=== PATIENT | male | born 1975 | race Caucasian/White ===

== ENCOUNTER 2018-07-03 13:59 | Emergency (ER) | payer OTHER ==
[2018-07-03] MEDS ORDERED: SODIUM CHLORIDE 0.9% 1,000 ML IV ONE (15:22)
[2018-07-03] MEDS ORDERED: SODIUM CHLORIDE 0.9% 1,000 ML IV SCH (15:30)
--- NOTE | 2018-07-03 15:33 | ED ---
Wound/Laceration HPI - General Chief Complaint: Wound/Laceration Stated Complaint: wound on left leg Time Seen by Provider: 07/03/18 14:59 Source: patient, RN notes reviewed, old records reviewed Mode of arrival: ambulatory Limitations: no limitations - History of Present Illness Initial Comments: 43-year-old male presents for erythromycin chief complaint of left leg wound. Patient reports that he had a small area over the lateral aspect of his mid leg. Patient states that he saw his PCP 2 months ago and started on antibiotics. He reports it's become increasingly worse. Patient states he has had no fever. He reports he's had increased swelling of the entire leg. Patient reports that he has had full range of motion of the toes. He is also on a water pill has a history of chronic leg edema and CHF. Patient states that he is not having any chest pain or shortness of breath. - Related Data Home Medications Medication Instructions Recorded Confirmed Acetaminophen [Tylenol 8 Hour] 650 mg PO Q8H PRN 07/03/18 07/03/18 Ibuprofen [Motrin] 600 mg PO Q12HR PRN 07/03/18 07/03/18 Venlafaxine HCl ER [Effexor Xr] 150 mg PO DAILY 07/03/18 07/03/18 amLODIPine [Norvasc] 5 mg PO DAILY 07/03/18 07/03/18 traMADol HCL [Ultram] 50 mg PO Q8H PRN 07/03/18 07/03/18 traZODone HCL 50 mg PO HS 07/03/18 07/03/18 Previous Rx's Medication Instructions Recorded Sulfamethox-Tmp 800-160Mg [Bactrim 2 tab PO Q12HR #40 tab 07/03/18 DS 800-160 mg] Allergies Allergy/AdvReac Type Severity Reaction Status Date / Time No Known Allergies Allergy Verified 07/03/18 16:01 Review of Systems ROS Statement: Those systems with pertinent positive or pertinent negative responses have been documented in the HPI. ROS Other: All systems not noted in ROS Statement are negative. Past Medical History Past Medical History: Chest Pain / Angina, Hypertension, Osteoarthritis (OA), Skin Disorder Additional Past Medical History / Comment(s): psoriasis. History of Any Multi-Drug Resistant Organisms: None Reported Past Surgical History: Orthopedic Surgery Additional Past Surgical History / Comment(s): Left knee surgery for myles- schlatter disease. Right knee scope. Past Anesthesia/Blood Transfusion Reactions: No Reported Reaction Past Psychological History: Anxiety, Depression Smoking Status: Current every day smoker Past Alcohol Use History: Occasional Past Drug Use History: Cocaine, Marijuana - Past Family History Mother Family Medical History: Asthma, Blood Disorder, CVA/TIA, Diabetes Mellitus, GERD /Reflux, Hypertension, Memory Impairment, Osteoarthritis (OA), Renal Disease Additional Family Medical History / Comment(s): brain aneurysm General Exam - General Exam Comments Initial Comments: This is a 43-year-old male. Alert and oriented. No significant distress. Limitations: no limitations General appearance: alert, in no apparent distress Head exam: Present: atraumatic, normocephalic, normal inspection Eye exam: Present: normal appearance, PERRL, EOMI. Absent: scleral icterus, conjunctival injection, periorbital swelling ENT exam: Present: normal exam, mucous membranes moist Neck exam: Present: normal inspection. Absent: tenderness, meningismus, lymphadenopathy Respiratory exam: Present: normal lung sounds bilaterally. Absent: respiratory distress, wheezes, rales, rhonchi, stridor Cardiovascular Exam: Present: regular rate, normal rhythm, normal heart sounds. Absent: systolic murmur, diastolic murmur, rubs, gallop, clicks GI/Abdominal exam: Present: soft, normal bowel sounds. Absent: distended, tenderness, guarding, rebound, rigid Extremities exam: Present: normal inspection, full ROM, normal capillary refill. Absent: tenderness, pedal edema, joint swelling, calf tenderness Left Knee exam: Present: normal inspection, full ROM Lower Leg exam: Present: full ROM. Absent: normal inspection (She has a 2 cm x 2 cm venous-stasis ulcer over the lateral aspect of the left leg. Chronic venous changes noted with dusky extremity noted.) Ankle exam: Present: normal inspection, full ROM Foot/Toe exam: Present: normal inspection, full ROM Neurovascular tendon exam: Present: no vascular compromise Gait: observed and normal Back exam: Present: normal inspection Neurological exam: Present: alert Psychiatric exam: Present: normal affect, normal mood Skin exam: Present: warm, dry, intact, normal color, rash (Is dusky lower left extremity. There is evidence of this) Course Vital Signs 07/03/18 14:13 Temperature 98.1 F Pulse Rate 106 H Respiratory 20 Rate Blood Pressure 140/81 O2 Sat by Pulse 99 Oximetry Medical Decision Making - Medical Decision Making Patient is a 43-year-old male presents for instrumentation complaint of concern for wound over the left lower aspect of his leg. It's been increasingly large for the past month. Approximately 2cm. Patient does have some increased edema over the lower extremity bilaterally, slight worse in Left leg. I discussed if it increases lasik. for the next few days and have close follow-up with primary care provider. He has no shortness of breath or concerns for acute heart failure. I discussed that we'll put the Patient on antibiotics for the wound. He needs follow-up with a wound care clinic. Patient agrees to treatment plan will comply. Return parameters were discussed. - Lab Data Result diagrams: 07/03/18 15:45 07/03/18 15:45 Lab Results 07/03/18 07/03/18 Range/Units 15:45 15:45 WBC 9.3 (3.8-10.6) k/uL RBC 4.97 (4.30-5.90) m/uL Hgb 14.9 (13.0-17.5) gm/dL Hct 45.8 (39.0-53.0) % MCV 92.2 (80.0-100.0) fL MCH 30.0 (25.0-35.0) pg MCHC 32.5 (31.0-37.0) g/dL RDW 13.6 (11.5-15.5) % Plt Count 329 (150-450) k/uL Neutrophils % 74 % Lymphocytes % 16 % Monocytes % 6 % Eosinophils % 2 % Basophils % 1 % Neutrophils # 6.9 (1.3-7.7) k/uL Lymphocytes # 1.5 (1.0-4.8) k/uL Monocytes # 0.6 (0-1.0) k/uL Eosinophils # 0.2 (0-0.7) k/uL Basophils # 0.1 (0-0.2) k/uL Sodium 139 (137-145) mmol/L Potassium 4.5 (3.5-5.1) mmol/L Chloride 106 (98-107) mmol/L Carbon Dioxide 28 (22-30) mmol/L Anion Gap 5 mmol/L BUN 16 (9-20) mg/dL Creatinine 0.79 (0.66-1.25) mg/dL Est GFR (CKD-EPI)AfAm >90 (>60 ml/min/1.73 sqM) Est GFR (CKD-EPI)NonAf >90 (>60 ml/min/1.73 sqM) Glucose 79 (74-99) mg/dL Calcium 9.1 (8.4-10.2) mg/dL - Radiology Data Radiology results: report reviewed X-ray shows to correlate for cellulitis and edema. Disposition Clinical Impression: Venous stasis ulcer Disposition: HOME SELF-CARE Condition: Good Instructions: Chronic Wound Care (ED) Additional Instructions: Follow-up with her primary care provider within the next 1-2 days. Take antibiotics as prescribed and apply antibiotic cream. Follow-up with wound care clinic. Prescriptions: Sulfamethox-Tmp 800-160Mg [Bactrim DS 800-160 mg] 2 tab PO Q12HR #40 tab Is patient prescribed a controlled substance at d/c from ED?: No Referrals: Maria Elena Rico MD [Primary Care Provider] - 1-2 days [facility] [[facility] - 1-2 days Time of Disposition: 16:57
[2018-07-03 16:00] LABS: Basophils # (A) 0.1 k/uL (0-0.2); Basophils % (A) 1 %; Eosinophils # (A) 0.2 k/uL (0-0.7); Eosinophils % (A) 2 %; HCT 45.8 % (39.0-53.0); HGB 14.9 gm/dL (13.0-17.5); Lymphocytes # (A) 1.5 k/uL (1.0-4.8); Lymphocytes % (A) 16 %; MCHC 32.5 g/dL (31.0-37.0); MCV 92.2 fL (80.0-100.0); Monocytes # (A) 0.6 k/uL (0-1.0); Monocytes % (A) 6 %; Neutrophils # (A) 6.9 k/uL (1.3-7.7); Neutrophils % (A) 74 %; Platelet Count 329 k/uL (150-450); RBC 4.97 m/uL (4.30-5.90); RDW 13.6 % (11.5-15.5); WBC 9.3 k/uL (3.8-10.6)
[2018-07-03 16:13] LABS: Anion Gap 5 mmol/L; Blood Urea Nitrogen 16 mg/dL (9-20); Calcium 9.1 mg/dL (8.4-10.2); Carbon Dioxide 28 mmol/L (22-30); Chloride 106 mmol/L (98-107); Glucose 79 mg/dL (74-99); Potassium 4.5 mmol/L (3.5-5.1); Sodium 139 mmol/L (137-145)
--- NOTE | 2018-07-03 16:20 | XR ---
Left leg HISTORY: Nonhealing wound for 2 months 2 views of the left leg on 4 images, correlation to prior exam 11/18/2010. There is soft tissue swelling present. Ossific densities distal to the medial malleolus are well-irasema icated and not acute. No definite periosteal reaction. Patient is status post left knee arthroplasty. Bone mineralization and alignment are maintained. There is a plantar calcaneal spur present. Entheso phyte present at the insertion of the Achilles tendon. IMPRESSION: Correlate for cellulitis, edema.
[2018-07-03 17:08] VITALS: BP 151/81; PULSE 80; RESP 18; TEMP 98.5
== END 2018-07-03 17:06 | disposition home or self-care (01) ==
LOC: EC 13:59
DX: I83.028 Varicose veins of left lower extremity with ulcer other part of lower leg (principal); L97.829 Non-pressure chronic ulcer of other part of left lower leg with unspecified severity; R60.0 Localized edema; I11.0 Hypertensive heart disease with heart failure; I50.9 Heart failure, unspecified; F41.9 Anxiety disorder, unspecified; F32.9 Major depressive disorder, single episode, unspecified; F17.200 Nicotine dependence, unspecified, uncomplicated; Z79.899 Other long term (current) drug therapy; Z98.890 Other specified postprocedural states
CPT/HCPCS: 36415; 80048; 85025; 87040; 87070; 87077; 87186; 87205; 96360; 99284

== ENCOUNTER → 2018-07-26 | Outpatient (CLI) | payer OTHER ==
[2018-07-26 16:48] LABS: HGB 14.6 gm/dL (13.0-17.5); MCH 30.5 pg (25.0-35.0); MCHC 32.5 g/dL (31.0-37.0); MCV 93.9 fL (80.0-100.0); Mean Platelet Volume 6.4; Platelet Count 372 k/uL (150-450); RBC 4.79 m/uL (4.30-5.90); RDW 13.5 % (11.5-15.5)
[2018-07-27 02:50] LABS: Albumin 4.1 g/dL (3.80-4.90); Albumin/Globulin Ratio 1.78 (1.20-2.10); Calcium 8.7 mg/dL (8.7-10.3); Globulin 2.3 g/dL (2.1-3.7); Potassium 4.5 mmol/L (3.5-5.5); Total Bilirubin 0.4 mg/dL (0.2-1.2); Total Protein 6.4 g/dL (6.2-8.2)
== END | disposition home or self-care (01) ==
LOC: LABWHC1 16:04
PROVIDERS: ATTEND Thoracic Surgery (Cardiothoracic Vascular Surgery)
DX: I87.2 Venous insufficiency (chronic) (peripheral) (principal); E63.8 Other specified nutritional deficiencies
CPT/HCPCS: 36415; 80053; 84134; 85027

== ENCOUNTER 2019-06-06 10:06 | Day surgery (SDC) | payer OTHER ==
[2019-05-31 13:40] VITALS: BMI 44.7
[~2019-06-06 10:06] MED LIST: LACTATED RINGERS 1,000 ML IV SCH
[2019-06-06 11:08] VITALS: TEMP 98.1
[2019-06-06] MEDS ORDERED: LIDOCAINE 1% 20 ML VIAL (10MG/ML) FOR IV START INTRADERMA ONE (11:25)
[2019-06-06] MEDS ORDERED: PROPOFOL 10 MG/ML 20 ML VIAL IV ONE (12:25)
--- NOTE | 2019-06-06 12:33 | P.GSHP ---
History of Present Illness H&P Date: 06/06/19 Chief Complaint: GI bleed This a 44-year-old male who presents today for colonoscopy. Patient has issues with rectal bleeding. Past Medical History Past Medical History: Chest Pain / Angina, Deep Vein Thrombosis (DVT), GI Bleed, Hypertension, Osteoarthritis (OA), Pulmonary Embolus (PE), Skin Disorder, Thyroid Disorder Additional Past Medical History / Comment(s): psoriasis, enlarged heart, oswood-schlatter disease History of Any Multi-Drug Resistant Organisms: None Reported Past Surgical History: Joint Replacement, Orthopedic Surgery Additional Past Surgical History / Comment(s): Left knee surgery for myles- schlatter disease. Right knee scope, helene knee replacement Past Anesthesia/Blood Transfusion Reactions: No Reported Reaction Smoking Status: Current every day smoker - Past Family History Mother Family Medical History: Asthma, Blood Disorder, CVA/TIA, Diabetes Mellitus, GERD/Reflux, Hypertension, Memory Impairment, Osteoarthritis (OA), Renal Disease Additional Family Medical History / Comment(s): brain aneurysm Medications and Allergies Home Medications Medication Instructions Recorded Confirmed Type Venlafaxine HCl ER [Effexor Xr] 150 mg PO DAILY 07/03/18 05/31/19 History amLODIPine [Norvasc] 5 mg PO DAILY 07/03/18 06/06/19 History traZODone HCL 50 mg PO HS 07/03/18 06/06/19 History HYDROcodone/APAP 7.5-325MG [[place] 1 tab PO TID PRN 08/02/18 06/06/19 History 7.5-325] Aspirin [Adult Low Dose Aspirin EC] 81 mg PO DAILY 05/31/19 06/06/19 History Furosemide [Lasix] 20 mg PO DAILY 05/31/19 05/31/19 History Levothyroxine Sodium 25 mcg PO DAILY 05/31/19 05/31/19 History Potassium Chloride 10 meq PO DAILY 05/31/19 05/31/19 History Allergies Allergy/AdvReac Type Severity Reaction Status Date / Time No Known Allergies Allergy Verified 05/31/19 13:29 Surgical - Exam Vital Signs Temp Pulse Resp BP Pulse Ox 98.1 F 74 18 141/93 95 06/06/19 11:06 06/06/19 11:06 06/06/19 11:06 06/06/19 11:06 06/06/19 11:06 - General well developed, well nourished, no distress - Eyes PERRL - ENT normal pinna - Neck no masses - Respiratory normal expansion - Cardiovascular Rhythm: regular - Abdomen Abdomen: soft, non tender Assessment and Plan Assessment: GI bleed. We'll perform colonoscopy.
--- NOTE | 2019-06-06 12:44 | P.OP ---
Date of Procedure: 06/06/19 Preoperative Diagnosis: GI bleed Postoperative Diagnosis: Internal hemorrhoids to Rectal polyp Mild diverticulosis Poor colonic prep Procedure(s) Performed: Colonoscopy Anesthesia: MAC Surgeon: Nehemias Mehta Pathology: other (Rectal polyp) Condition: stable Disposition: PACU Description of Procedure: The patient's placed on the endoscopy table in the lateral position. He received IV sedation. Digital rectal exam was performed and internal hemorrhoids are noted. The flexible colonoscope was then placed patient anus passed with colon. The patient had a very poor prep with a large amount of formed stool in the colon. The scope could not be passed beyond the distal transverse colon due to the poor prep. This was scope was withdrawn. The descending and; was mild diverticular changes. Scope summer back the rectum and there was a small sessile polyp seen this removed the forcep. Scope was withdrawn for patient.
[2019-06-06 13:00] VITALS: RESP 16
[2019-06-06 13:09] VITALS: BP 140/91; PULSE 75
== END 2019-06-06 13:42 | disposition home or self-care (01) ==
LOC: ORWHC2ENDO 10:06
PROVIDERS: ATTEND Surgery
DX: K62.1 Rectal polyp (principal); K57.90 Diverticulosis of intestine, part unspecified, without perforation or abscess without bleeding; K64.8 Other hemorrhoids; K62.5 Hemorrhage of anus and rectum; M19.90 Unspecified osteoarthritis, unspecified site; I11.9 Hypertensive heart disease without heart failure; Z86.718 Personal history of other venous thrombosis and embolism; Z86.711 Personal history of pulmonary embolism; E07.9 Disorder of thyroid, unspecified; L40.9 Psoriasis, unspecified; M92.50 Unspecified juvenile osteochondrosis of tibia and fibula; Z96.653 Presence of artificial knee joint, bilateral; F17.200 Nicotine dependence, unspecified, uncomplicated; Z83.3 Family history of diabetes mellitus; Z83.2 Family history of diseases of the blood and blood-forming organs and certain disorders involving the immune mechanism; Z82.5 Family history of asthma and other chronic lower respiratory diseases; Z82.49 Family history of ischemic heart disease and other diseases of the circulatory system; Z84.1 Family history of disorders of kidney and ureter; Z82.3 Family history of stroke; Z79.82 Long term (current) use of aspirin; Z79.890 Hormone replacement therapy; Z79.899 Other long term (current) drug therapy
CPT/HCPCS: 88305; 45380; J2704

== ENCOUNTER 2020-01-30 19:13 | Inpatient (IN) | payer OTHER ==
[2020-01-30] MEDS ORDERED: MORPHINE SULFATE 4 MG/ML SYRINGE IVP STA ×2 (19:42→21:36)
[2020-01-30] MEDS ORDERED: ONDANSETRON 4 MG/2 ML VIAL IVP STA (19:42)
--- NOTE | 2020-01-30 19:53 | ED ---
Extremity Problem HPI - General Chief complaint: Extremity Problem,Nontraumatic Stated complaint: L Leg Swelling Time Seen by Provider: 01/30/20 19:29 Source: patient, RN notes reviewed Mode of arrival: ambulatory Limitations: no limitations - History of Present Illness Initial comments: This a 45-year-old male presents emergency Department chief complaint of left leg pain, swelling and open sore. Patient states she's had significant changes last 24 hours he has meant that he's been having increasing issues over the last few days to a week. Patient does admit that he's had infections and swelling in the past. He does have a history of DVT, PE. Patient states that he does not take any current blood thinners. He has no complaints chest pain or shortness breath no fevers or chills. He states that he is not a diabetic. He states that he has seen Dr. Pringle in the past and has been evaluated by wound center. Patient states the pain as a his tremendous, that there is increased swelling from yesterday. He states her multiple wounds. - Related Data Home Medications Medication Instructions Recorded Confirmed Venlafaxine HCl ER [Effexor Xr] 150 mg PO DAILY 07/03/18 01/30/20 amLODIPine [Norvasc] 5 mg PO DAILY 07/03/18 01/30/20 Aspirin [Adult Low Dose Aspirin EC] 81 mg PO DAILY 05/31/19 01/30/20 Furosemide [Lasix] 20 mg PO DAILY 05/31/19 01/30/20 Levothyroxine Sodium 25 mcg PO DAILY 05/31/19 01/30/20 Potassium Chloride 10 meq PO DAILY 05/31/19 01/30/20 Ibuprofen [Motrin] 600 mg PO Q12H PRN 01/30/20 01/30/20 traMADol HCL 50 mg PO TID PRN 01/30/20 01/30/20 traZODone HCL [Desyrel] 100 mg PO HS 01/30/20 01/30/20 Allergies Allergy/AdvReac Type Severity Reaction Status Date / Time No Known Allergies Allergy Verified 01/30/20 21:33 Review of Systems ROS Statement: Those systems with pertinent positive or pertinent negative responses have been documented in the HPI. ROS Other: All systems not noted in ROS Statement are negative. Past Medical History Past Medical History: Chest Pain / Angina, Deep Vein Thrombosis (DVT), GI Bleed, Hypertension, Osteoarthritis (OA), Pulmonary Embolus (PE), Skin Disorder, Thyroid Disorder Additional Past Medical History / Comment(s): psoriasis, enlarged heart, oswood-schlatter disease History of Any Multi-Drug Resistant Organisms: None Reported Past Surgical History: Joint Replacement, Orthopedic Surgery Additional Past Surgical History / Comment(s): Left knee surgery for myles- schlatter disease. Right knee scope, hleene knee replacement Past Anesthesia/Blood Transfusion Reactions: No Reported Reaction Past Psychological History: Anxiety, Depression Smoking Status: Current every day smoker Past Alcohol Use History: Occasional Past Drug Use History: Marijuana - Past Family History Mother Family Medical History: Asthma, Blood Disorder, CVA/TIA, Diabetes Mellitus, GERD/Reflux, Hypertension, Memory Impairment, Osteoarthritis (OA), Renal Disease Additional Family Medical History / Comment(s): brain aneurysm General Exam Limitations: no limitations General appearance: alert, in no apparent distress, obese Head exam: Present: atraumatic, normocephalic, normal inspection ENT exam: Present: normal exam, mucous membranes moist Neck exam: Present: normal inspection. Absent: tenderness, meningismus, lymphadenopathy Respiratory exam: Present: normal lung sounds bilaterally. Absent: respiratory distress, wheezes, rales, rhonchi, stridor Cardiovascular Exam: Present: normal rhythm, tachycardia (Heart rate 108), normal heart sounds. Absent: systolic murmur, diastolic murmur, rubs, gallop, c licks GI/Abdominal exam: Present: soft, normal bowel sounds. Absent: distended, tenderness, guarding, rebound, rigid Extremities exam: Present: other (Bilateral lower extremity venous stasis changes noted, brown in color, left leg there is noticeable increased swelling, moderate tenderness with palpation there are palpable pulses bilaterally dorsal pedalais, posterior tibialis equal, there is an open wound approximately 2 cm in diameter below the swelling, there is one small half centimeter open wound in addition) Neurological exam: Present: alert, oriented X3 Course Vital Signs 01/30/20 01/30/20 19:15 21:35 Temperature 98.8 F 98.9 F Pulse Rate 108 H 91 Respiratory 20 18 Rate Blood Pressure 157/104 127/95 O2 Sat by Pulse 99 99 Oximetry Medical Decision Making - Medical Decision Making 45-year-old male presented for left leg pain. Patient has significant venous stasis ulcers, left leg cellulitis. There is no evidence of acute DVT there is evidence of chronic DVT. Patient will be admitted for IV antibiotics. There is no evidence of osteomyelitis. - Lab Data Result diagrams: 01/30/20 20:00 01/30/20 20:00 Lab Results 01/30/20 01/30/20 01/30/20 Range/Units 20:00 20:00 20:00 WBC 11.5 H (3.8-10.6) k/uL RBC 4.89 (4.30-5.90) m/uL Hgb 14.8 (13.0-17.5) gm/dL Hct 44.6 (39.0-53.0) % MCV 91.2 (80.0-100.0) fL MCH 30.3 (25.0-35.0) pg MCHC 33.3 (31.0-37.0) g/dL RDW 13.6 (11.5-15.5) % Plt Count 362 (150-450) k/uL Neutrophils % 73 % Lymphocytes % 14 % Monocytes % 8 % Eosinophils % 4 % Basophils % 1 % Neutrophils # 8.3 H (1.3-7.7) k/uL Lymphocytes # 1.6 (1.0-4.8) k/uL Monocytes # 0.9 (0-1.0) k/uL Eosinophils # 0.4 (0-0.7) k/uL Basophils # 0.1 (0-0.2) k/uL PT 9.3 (9.0-12.0) sec INR 0.9 (<1.2) APTT 23.9 (22.0-30.0) sec Sodium 136 L (137-145) mmol/L Potassium 4.5 (3.5-5.1) mmol/L Chloride 105 (98-107) mmol/L Carbon Dioxide 24 (22-30) mmol/L Anion Gap 7 mmol/L BUN 18 (9-20) mg/dL Creatinine 0.79 (0.66-1.25) mg/dL Est GFR (CKD-EPI)AfAm >90 (>60 ml/min/1.73 sqM) Est GFR (CKD-EPI)NonAf >90 (>60 ml/min/1.73 sqM) Glucose 85 (74-99) mg/dL Calcium 9.0 (8.4-10.2) mg/dL Total Bilirubin 0.4 (0.2-1.3) mg/dL AST 28 (17-59) U/L ALT 33 (4-49) U/L Alkaline Phosphatase 109 (38-126) U/L Total Protein 7.3 (6.3-8.2) g/dL Albumin 3.9 (3.5-5.0) g/dL Disposition Clinical Impression: Venous stasis ulcer of left lower leg with edema of left lower leg, Left leg cellulitis, Chronic deep vein thrombosis (DVT) of left lower extremity Disposition: ADMITTED IP TO THIS HOSP Condition: Fair Referrals: Maria Elena Rico MD [Primary Care Provider] - 1-2 days
[2020-01-30 20:16] LABS: Basophils # (A) 0.1 k/uL (0-0.2); Basophils % (A) 1 %; Eosinophils # (A) 0.4 k/uL (0-0.7); Eosinophils % (A) 4 %; HCT 44.6 % (39.0-53.0); HGB 14.8 gm/dL (13.0-17.5); Lymphocytes # (A) 1.6 k/uL (1.0-4.8); Lymphocytes % (A) 14 %; MCH 30.3 pg (25.0-35.0); MCHC 33.3 g/dL (31.0-37.0); MCV 91.2 fL (80.0-100.0); Monocytes # (A) 0.9 k/uL (0-1.0); Monocytes % (A) 8 %; Neutrophils # (A) 8.3 k/uL (1.3-7.7); Neutrophils % (A) 73 %; Platelet Count 362 k/uL (150-450); RBC 4.89 m/uL (4.30-5.90); RDW 13.6 % (11.5-15.5); WBC 11.5 k/uL (3.8-10.6)
[2020-01-30 20:24] LABS: ALT 33 U/L (4-49); AST 28 U/L (17-59); African American GFR (CKD) >90 (>60 ml/min/1.73 sqM); Albumin 3.9 g/dL (3.5-5.0); Alkaline Phosphatase 109 U/L (38-126); Anion Gap 7 mmol/L; Blood Urea Nitrogen 18 mg/dL (9-20); Carbon Dioxide 24 mmol/L (22-30); Chloride 105 mmol/L (98-107); Glucose 85 mg/dL (74-99); Non-African American GFR(CKD) >90 (>60 ml/min/1.73 sqM); Potassium 4.5 mmol/L (3.5-5.1); Sodium 136 mmol/L (137-145); Total Bilirubin 0.4 mg/dL (0.2-1.3); Total Protein 7.3 g/dL (6.3-8.2)
--- NOTE | 2020-01-30 20:36 | XR ---
EXAMINATION TYPE: XR tibia fibula LT DATE OF EXAM: 01/30/2020 COMPARISON: 07/03/2018 HISTORY: Pain and swelling TECHNIQUE: 4 views FINDINGS: There is subcutaneous edema around the lower leg. I see no fracture nor dislocation. There is a left knee prosthesis. Ankle mortise is anatomic. IMPRESSION: Subcutaneous edema that appears worse than old exam. No fracture.
[2020-01-30 21:04] LABS: INR 0.9 (<1.2); Partial Thromboplastin Time 23.9 sec (22.0-30.0); Prothrombin Time 9.3 sec (9.0-12.0)
--- NOTE | 2020-01-30 21:19 | US ---
EXAMINATION TYPE: US venous doppler duplex LE LT DATE OF EXAM: 01/30/2020 9:02 PM COMPARISON: US 2009 CLINICAL HISTORY: pain, swelling. Pain and swelling left leg x couple days. Hx DVT and PE. Hx left kn ee surgery. Patient does not take blood thinners. SIDE PERFORMED: Left TECHNIQUE: The lower extremity deep venous system is examined utilizing real time linear array sonog iraida with graded compression, doppler sonography and color-flow sonography. VESSELS IMAGED: Common Femoral Vein Deep Femoral Vein Greater Saphenous Vein * Femoral Vein Popliteal Vein Small Saphenous Vein * Proximal Calf Veins (* superficial vessels) Left Leg: Exam is limited due to large patient body habitus and severe edema. Limited visibility for compression imaging of femoral vein. There appears to be internal echoes within the partially compre ssible left popliteal vein. IMPRESSION: There is evidence of chronic deep vein thrombosis in the popliteal vein. Limited exam.
[2020-01-30] MEDS ORDERED: NALOXONE 0.4 MG/ML 1 ML VIAL IV PRN (21:23)
[2020-01-30] MEDS ORDERED: ONDANSETRON 4 MG/2 ML VIAL IVP PRN (21:23)
[2020-01-30] MEDS ORDERED: ACETAMINOPHEN TAB 325 MG TAB PO PRN (21:23)
[2020-01-30] MEDS ORDERED: VANCOMYCIN IV PER PHARMACY 1 EACH MISC MISCELLANE PRN (21:25)
[2020-01-30] MEDS ORDERED: cefTRIAXone IN SWFI 1,000 MG/10 ML SYRINGE IVP STA (21:25)
[2020-01-30] MEDS ORDERED: VANCOMYCIN 2,000 MG in SODIUM CHLORIDE 0.9% 500 ML 500 ML IVPB ONE (22:00)
[2020-01-31] MEDS: MORPHINE SULFATE 4 MG/ML SYRINGE IV PRN ×5 (00:18→20:29)
[2020-01-31] MEDS: HYDROcodone/APAP 5-325MG 1 EACH TAB PO PRN ×3 (01:27→16:12)
[2020-01-31] MEDS: VANCOMYCIN 2,000 MG in SODIUM CHLORIDE 0.9% 500 ML 500 ML IVPB SCH ×3 (05:12→23:02)
[2020-01-31] MEDS: traMADol 50 MG TAB PO PRN ×2 (13:52→22:14)
--- NOTE | 2020-01-31 14:24 | P.HPIM ---
History of Present Illness H&P Date: 01/31/20 Alexandro Juares is a 45-year-old male well-known to my practice who presented to [facility] emergency room was a chief complaint of left lower extremity swelling pain and open ulcer in the left pretibial area he was evaluated in emergency room and was started on IV antibiotic and was admitted to medical floor. Left lower extremity Doppler was done and revealed evidence of chronic deep venous thrombosis in the left popliteal vein. Patient has a known history of hypertension, hypothyroidism, morbid obesity, osteoarthritis, and history of depression. Past Medical History Past Medical History: Chest Pain / Angina, Deep Vein Thrombosis (DVT), GI Bleed, Hypertension, Osteoarthritis (OA), Pulmonary Embolus (PE), Skin Disorder, Thyroid Disorder Additional Past Medical History / Comment(s): psoriasis, enlarged heart, oswood- schlatter disease History of Any Multi-Drug Resistant Organisms: None Reported Past Surgical History: Joint Replacement, Orthopedic Surgery Additional Past Surgical History / Comment(s): Left knee surgery for myles-belgica latter disease. Right knee scope, helene knee replacement Past Anesthesia/Blood Transfusion Reactions: No Reported Reaction Past Psychological History: Anxiety, Depression Smoking Status: Current every day smoker Past Alcohol Use History: Occasional Additional Past Alcohol Use History / Comment(s): smoker x 20 years 1/2ppd Past Drug Use History: Marijuana Additional Drug Use History / Comment(s): marijuana occasionally - Past Family History Mother Family Medical History: Asthma, Blood Disorder, CVA/TIA, Diabetes Mellitus, GERD/Reflux, Hypertension, Memory Impairment, Osteoarthritis (OA), Renal Disease Additional Family Medical History / Comment(s): brain aneurysm Medications and Allergies Home Medications Medication Instructions Recorded Confirmed Type Venlafaxine HCl ER [Effexor Xr] 150 mg PO DAILY 07/03/18 01/30/20 History amLODIPine [Norvasc] 5 mg PO DAILY 07/03/18 01/30/20 History Aspirin [Adult Low Dose Aspirin EC] 81 mg PO DAILY 05/31/19 01/30/20 History Furosemide [Lasix] 20 mg PO DAILY 05/31/19 01/30/20 History Levothyroxine Sodium 25 mcg PO DAILY 05/31/19 01/30/20 History Potassium Chloride 10 meq PO DAILY 05/31/19 01/30/20 History Ibuprofen [Motrin] 600 mg PO Q12H PRN 01/30/20 01/30/20 History traMADol HCL 50 mg PO TID PRN 01/30/20 01/30/20 History traZODone HCL [Desyrel] 100 mg PO HS 01/30/20 01/30/20 History Allergies Allergy/AdvReac Type Severity Reaction Status Date / Time No Known Allergies Allergy Verified 01/30/20 21:33 Physical Exam Vitals: Vital Signs Temp Pulse Pulse Resp BP BP Pulse Ox 01/31/20 08:30 84 18 01/31/20 07:00 97.8 F 84 17 138/82 93 L 01/31/20 00:07 98.1 F 94 17 126/81 94 L 01/30/20 23:02 88 17 125/74 99 01/30/20 21:35 98.9 F 91 18 127/95 99 01/30/20 19:15 98.8 F 108 H 20 157/104 99 Intake and Output 01/30/20 01/31/20 01/31/20 22:59 06:59 14:59 Intake Total 500 380 Balance 500 380 Intake: Intake, IV Titration 500 Amount Vancomycin 2,000 mg In 500 Sodium Chloride 0.9% 500 ml 500 ml @ 167 mls/hr IVPB Q8H [facility] Rx#: [id number] Oral 380 Other: Weight 162.386 kg 162.386 kg In general patient is alert and oriented 3 in no apparent distress HEENT head normocephalic and atraumatic Neck is supple no JVD no goiter no lymphadenopathy Chest exam reveals a few scattered crackles no wheezing Cardiac exam reveals regular heart sounds no gallops no murmurs Abdomen is soft nontender no organomegaly with normal bowel sounds Extremity exam reveals 2+ edema bilaterally there is stasis changes in bilateral lower extremities, there is evidence of cellulitis in the left pretibial area with large open ulcer about 1 inch in diameter in the left pretibial area Neurological examination reveals no gross focal deficit Results CBC & Chem 7: 01/30/20 20:00 01/30/20 20:00 Labs: Abnormal Lab Results - Last 24 Hours (Table) 01/30/20 01/30/20 Range/Units 20:00 20:00 WBC 11.5 H (3.8-10.6) k/uL Neutrophils # 8.3 H (1.3-7.7) k/uL Sodium 136 L (137-145) mmol/L Microbiology - Last 24 Hours (Table) 01/30/20 20:07 Gram Stain - Preliminary Leg - Left Wound Culture - Preliminary Thrombosis Risk Factor Assmnt - Choose All That Apply Each Factor Represents 1 point: Age 41-60 years, Swollen legs (current), Varicose veins Each Risk Factor Represents 3 Points: History of DVT/PE Thrombosis Risk Factor Assessment Total Risk Factor Score: 6 Thrombosis Risk Factor Assessment Level: High Risk Assessment and Plan Plan: 1. Left lower extremity cellulitis with ulcer, leukocytosis on admission white blood count 11.5. Patient was started on IV antibiotics, infectious disease consultation was requested 2. Venous stasis changes, bilateral lower extremities, vascular surgery consultation was requested 3. Underlying history of hypertension, home medications reordered will monitor blood pressure closely 4. Underlying history of hypothyroidism, continue home dose of Synthroid check TSH 5. Underlying history of depression, continue venlafaxine 6. Marked morbid obesity, patient counseled regarding diet and exercise 7. Evidence of chronic deep venous thrombosis on the left in the popliteal vein, patient is on aspirin, and Lovenox vascular surgery consultation requested 8. Recent left shoulder injury with shoulder pain Will check x-ray At this time patient was started on IV antibiotics vancomycin and ceftriaxone Infectious disease and vascular surgery consultation was requested Will follow closely please see orders
[2020-01-31] MEDS: FUROSEMIDE 20 MG TAB PO SCH (14:44)
[2020-01-31] MEDS: POTASSIUM CHLORIDE ER 10 MEQ TAB.ER.PRT PO SCH (14:44)
[2020-01-31] MEDS: amLODIPine 5 MG TAB PO SCH (14:44)
[2020-01-31] MEDS: ASPIRIN 81 MG PO SCH (14:44)
[2020-01-31] MEDS: VENLAFAXINE HCL ER 150 MG CAP PO SCH (14:44)
[2020-01-31] MEDS: LEVOTHYROXINE 25 MCG TAB PO SCH (14:44)
[2020-01-31] MEDS: COLLAGENASE 250 UNIT/GM OINTMENT 30 GM TUBE TOPICAL SCH (16:55)
[2020-01-31] MEDS: NICOTINE 21MG/24HR PATCH TRANSDERM SCH (18:18)
--- NOTE | 2020-01-31 18:54 | CONS ---
CONSULTATION This is a 45-year-old gentleman who has been admitted to [facility] with history of left lower extremity swelling and discomfort and pain. The patient had an ultrasound of his left pretibial area. Measurement is 4 x 3 cm and the patient also has some brown induration of the lower extremities suggestive of chronic venous hypertension. The patient had an ultrasound which shows chronic DVT of the popliteal vein. MEDICAL HISTORY: History of DVT in the past, history of hypertension, history of PE, history of obesity. SURGICAL HISTORY: Patient had a joint replacement done in the past. PHYSICAL EXAMINATION: NECK: Supple. Trachea central. CHEST: Clear. ABDOMEN: Soft. Femorals are palpable. Dorsal pedis palpable. Patient has brown induration of the left lower extremity with an ulcer on the pretibial area measuring 4 x 3 cm. PLAN: The patient is on IV antibiotics. We used Santyl cream to the wound with compression wraps. The plan is that the patient will be followed in the wound clinic. Patient is a regular patient of Dr. Josh Pringle in the wound clinic and he will follow with this patient on . In the meantime, continue with Santyl and IV antibiotic. Follow up next week to see Dr. Pringle in the wound clinic on . MMODL / IJN: [id number] /
[2020-01-31] MEDS: traZODone HCL 100 MG TAB PO SCH (22:14)
[2020-01-31 23:20] LABS: Hemoglobin A1C 5.7 % (4.0-6.0)
--- NOTE | 2020-01-31 23:24 | CONS ---
CONSULTATION DATE OF SERVICE: 01/31/2020 REASON FOR CONSULTATION: Left lower extremity cellulitis. HISTORY OF PRESENT ILLNESS: The patient is a 45-year-old male with past medical history significant for venostasis ulcer to the lower extremity, presenting to the ER with chief complaint of left leg pain, swelling and redness that has been going on for more than a week. The patient denies having any history of any trauma. The patient is complaining of more swelling to the left lower extremity with subsequent blister that opened up leading to some superficial ulceration. The patient has been complaining of pain to the leg to be more of a dull aching to sharp, 4 to 5 out of 10, and almost 10/10 with no radiation. Did have slight drainage. No significant foul-smelling, though. Did have some chills but denies high-grade fever. With these symptoms, the patient was evaluated by the ER physician. On arrival in the ER, the patient did have x-rays of the tibia and fibula that were negative for any fracture. He did have a lower extremity Doppler that was positive for chronic deep venous thrombosis in the popliteal vein. The patient on admission to the hospital was afebrile. He did have a white count of 11.5. Patient was started on vancomycin and Rocephin. Infectious Disease was consulted for further recommendations regarding antibiotic therapy. REVIEW OF SYSTEMS: Positive points have been mentioned in the HPI. Rest of the systems are negative. PAST MEDICAL HISTORY: DVT, hypertension, osteoarthritis, pulmonary embolism, psoriasis, Doretha-Schlatter disease. PAST SURGICAL HISTORY: Left knee surgery, right knee arthroscopy, bilateral knee replacement. SOCIAL HISTORY: Current everyday smoker. Occasionally drinks. Occasional marijuana use. FAMILY HISTORY: Mother with history of asthma and blood disorder and diabetes. ALLERGIES: NO KNOWN DRUG ALLERGIES. MEDICATIONS: The patient is currently on Tylenol, [place], Norvasc, aspirin, Rocephin 1 gram daily, Santyl, Lasix, Synthroid, vancomycin, nicotine patch, K-Dur, Ultram, Desyrel, Effexor. PHYSICAL EXAMINATION: Blood pressure 130/85 with a pulse of 79, temperature 98.8. He is 94% on room air. General description is a middle-aged male lying in bed in no distress. No tachypnea or accessory muscle of respiration use. HEENT examination shows no pallor or scleral icterus. Oral mucosa membrane is dry. No pharyngeal erythema or thrush. NECK: Trachea is central. No thyromegaly. LUNGS: Unlabored breathing. Clear to auscultation anteriorly. No wheeze or crackle. HEART: S1, S2. Regular rate and rhythm. No added sound. ABDOMEN: Soft. No tenderness. No guarding or rigidity. EXTREMITIES: Left leg is swollen and red with some superficial ulceration. No significant slough tissue or foul-smelling drainage. Neurologically the patient is awake, alert, oriented x3. Mood and affect normal. LABS: Hemoglobin is 14.8, white count 11.5, BUN of 18, creatinine 0.79. Wound culture with presumptive Staph aureus. Blood culture has been negative. DIAGNOSTIC IMPRESSION AND PLAN: Patient presented with hospital with left lower extremity cellulitis in this patient who did have some superficial wound, likely from a ruptured blister. Local wound culture now showing Staph aureus with a question of possible community-associated MRSA. PLAN: 1. Vancomycin, Pharmacy to dose. Target of 15, while watching his kidney function and vancomycin trough closely. 2. Local wound care with dry Aquacel Silver dressing and Kannan wrap to keep the swelling down, to be changed daily. 3. Will follow clinical condition and culture to further adjust medication if needed. Thank you for this consultation. Will follow this patient along with you. MMODL / IJN: [id number] /
[2020-02-01] MEDS: LEVOTHYROXINE 25 MCG TAB PO SCH (05:38)
[2020-02-01] MEDS: VANCOMYCIN 2,000 MG in SODIUM CHLORIDE 0.9% 500 ML 500 ML IVPB SCH ×4 (05:38→21:12)
[2020-02-01] MEDS: HYDROcodone/APAP 5-325MG 1 EACH TAB PO PRN ×2 (05:43→20:03)
[2020-02-01 07:25] LABS: Basophils # (A) 0.1 k/uL (0-0.2); Basophils % (A) 0 %; Eosinophils # (A) 0.4 k/uL (0-0.7); Eosinophils % (A) 4 %; HCT 42.5 % (39.0-53.0); HGB 13.2 gm/dL (13.0-17.5); Lymphocytes # (A) 1.2 k/uL (1.0-4.8); Lymphocytes % (A) 12 %; MCH 29.3 pg (25.0-35.0); MCHC 31.1 g/dL (31.0-37.0); Mean Platelet Volume 7.1; Monocytes % (A) 10 %; Neutrophils # (A) 7.7 k/uL (1.3-7.7); Neutrophils % (A) 73 %; Platelet Count 339 k/uL (150-450); RBC 4.52 m/uL (4.30-5.90); RDW 13.2 % (11.5-15.5); WBC 10.5 k/uL (3.8-10.6)
[2020-02-01 07:37] LABS: ALT 24 U/L (4-49); AST 24 U/L (17-59); African American GFR (CKD) >90 (>60 ml/min/1.73 sqM); Albumin 3.1 g/dL (3.5-5.0); Alkaline Phosphatase 89 U/L (38-126); Anion Gap 5 mmol/L; Blood Urea Nitrogen 7 mg/dL (9-20); Calcium 8.2 mg/dL (8.4-10.2); Carbon Dioxide 26 mmol/L (22-30); Chloride 104 mmol/L (98-107); Glucose 108 mg/dL (74-99); Non-African American GFR(CKD) >90 (>60 ml/min/1.73 sqM); Potassium 4.2 mmol/L (3.5-5.1); Sodium 135 mmol/L (137-145); Total Bilirubin 0.4 mg/dL (0.2-1.3)
[2020-02-01] MEDS: ASPIRIN 81 MG PO SCH (08:42)
[2020-02-01] MEDS: amLODIPine 5 MG TAB PO SCH (08:42)
[2020-02-01] MEDS: POTASSIUM CHLORIDE ER 10 MEQ TAB.ER.PRT PO SCH (08:42)
[2020-02-01] MEDS: traMADol 50 MG TAB PO PRN (08:42)
[2020-02-01] MEDS: VENLAFAXINE HCL ER 150 MG CAP PO SCH (08:42)
[2020-02-01] MEDS: NICOTINE 21MG/24HR PATCH TRANSDERM SCH (08:42)
[2020-02-01] MEDS: FUROSEMIDE 20 MG TAB PO SCH (08:42)
[2020-02-01] MEDS: COLLAGENASE 250 UNIT/GM OINTMENT 30 GM TUBE TOPICAL SCH (08:44)
[2020-02-01] MEDS: MORPHINE SULFATE 4 MG/ML SYRINGE IV PRN ×3 (11:44→23:44)
[2020-02-01] MEDS ORDERED: VANCOMYCIN TROUGH DUE 1 EACH MISC MISCELLANE ONE (13:00)
--- NOTE | 2020-02-01 16:46 | P.PN ---
Subjective Progress Note Date: 02/01/20 Alexandro Juares is a 45-year-old male well-known to my practice who presented to [facility] emergency room was a chief complaint of left lower extremity swelling pain and open ulcer in the left pretibial area he was evaluated in emergency room and was started on IV antibiotic and was admitted to medical floor. Left lower extremity Doppler was done and revealed evidence of chronic deep venous thrombosis in the left popliteal vein. Patient has a known history of hypertension, hypothyroidism, morbid obesity, osteoarthritis, and history of depression. On 02/01/2020 patient was seen and examined on the medical floor he is alert and oriented in no apparent distress there is copious greenish discharge from his left pretibial ulcer patient still has significant stasis changes and erythema around the ulcer, patient is complaining of pain and discomfort in his left lower extremity otherwise patient denies any complaints there is no fever or chills no headache or dizziness no chest pain no shortness of breath no cough no nausea or vomiting no abdominal pain no diarrhea and no urinary symptoms Objective - Vital Signs Vital signs: Vital Signs Temp 97.6 F 02/01/20 07:00 Pulse 97 02/01/20 07:00 Resp 18 02/01/20 07:00 BP 156/98 02/01/20 07:00 Pulse Ox 95 02/01/20 07:00 Intake & Output 01/31/20 02/01/20 02/01/20 18:59 06:59 18:59 Intake Total 380 100 Balance 380 100 Intake: Oral 380 100 Other: Voiding Method Toilet # Voids 1 - Exam In general patient is alert and oriented 3 in no apparent distress HEENT head normocephalic and atraumatic Neck is supple no JVD no goiter no lymphadenopathy Chest exam reveals a few scattered crackles no wheezing Cardiac exam reveals regular heart sounds no gallops no murmurs Abdomen is soft nontender no organomegaly with normal bowel sounds Extremity exam reveals 2+ edema bilaterally there is stasis changes in bilateral lower extremities, there is evidence of cellulitis in the left pretibial area with large open ulcer about 1 inch in diameter in the left pretibial area Neurological examination reveals no gross focal deficit - Labs CBC & Chem 7: 02/01/20 06:48 02/01/20 06:48 Labs: Abnormal Lab Results - Last 24 Hours (Table) 02/01/20 Range/Units 06:48 Sodium 135 L (137-145) mmol/L BUN 7 L (9-20) mg/dL Creatinine 0.65 L (0.66-1.25) mg/dL Glucose 108 H (74-99) mg/dL Calcium 8.2 L (8.4-10.2) mg/dL Total Protein 6.0 L (6.3-8.2) g/dL Albumin 3.1 L (3.5-5.0) g/dL Microbiology - Last 24 Hours (Table) 01/30/20 20:15 Blood Culture - Preliminary Blood No Growth after 24 hours 01/30/20 20:07 Gram Stain - Preliminary Leg - Left Wound Culture - Preliminary Presumptive Staph aureus Assessment and Plan Plan: 1. Left lower extremity cellulitis with ulcer, leukocytosis on admission white blood count 11.5. Patient was started on IV antibiotics, infectious disease consultation was requested 2. Venous stasis changes, bilateral lower extremities, vascular surgery cons ultation was requested 3. Underlying history of hypertension, home medications reordered will monitor blood pressure closely 4. Underlying history of hypothyroidism, continue home dose of Synthroid check TSH 5. Underlying history of depression, continue venlafaxine 6. Marked morbid obesity, patient counseled regarding diet and exercise 7. Evidence of chronic deep venous thrombosis on the left in the popliteal vein, patient is on aspirin, and Lovenox vascular surgery consultation requested 8. Recent left shoulder injury with shoulder pain Will check x-ray At this time patient was started on IV antibiotics vancomycin and ceftriaxone Infectious disease and vascular surgery consultation was requested Will follow closely please see orders
[2020-02-01] MEDS: traZODone HCL 100 MG TAB PO SCH (23:41)
--- NOTE | 2020-02-02 03:06 | PN ---
PROGRESS NOTE DATE OF SERVICE: 02/01/2020 REASON FOR FOLLOWUP: Left leg wound and cellulitis. INTERVAL HISTORY: The patient is currently afebrile. The patient has been breathing comfortably. The patient denies having any chest pain. No shortness of breath or cough. No nausea, vomiting. Overall pain and discomfort to the left leg has improved. PHYSICAL EXAMINATION: Blood pressure is 117/60, pulse of 90, temperature of 98. General description is a middle-aged male up in the bed in no distress. Respiratory system: Unlabored breathing, clear to auscultation anteriorly. Heart S1, S2. Regular rate and rhythm. Abdomen soft. No tenderness. Left leg redness has slightly decreased. Swelling persists. LABS: Wound culture has been finalized with MSSA. Hemoglobin is 13.2, white count normalized to 10.5, creatinine 0.65. DIAGNOSTIC IMPRESSION AND PLAN: Patient with acute left lower extremity venous stasis ulcer with secondary cellulitis. Cultures have been finalized with MSSA. We will discontinue vancomycin and Rocephin and start the patient on the cefazolin 2 grams q.8 hours. Local wound care to continue with dry Aquacel dressing and monitor clinical course closely. MMODL / IJN: [id number] /
[2020-02-02] MEDS: LEVOTHYROXINE 25 MCG TAB PO SCH (05:50)
[2020-02-02] MEDS: NICOTINE 21MG/24HR PATCH TRANSDERM SCH (08:15)
[2020-02-02] MEDS: ASPIRIN 81 MG PO SCH (08:16)
[2020-02-02] MEDS: POTASSIUM CHLORIDE ER 10 MEQ TAB.ER.PRT PO SCH (08:16)
[2020-02-02] MEDS: VENLAFAXINE HCL ER 150 MG CAP PO SCH (08:16)
[2020-02-02] MEDS: FUROSEMIDE 20 MG TAB PO SCH (08:16)
[2020-02-02] MEDS: amLODIPine 5 MG TAB PO SCH (08:16)
[2020-02-02] MEDS: MORPHINE SULFATE 4 MG/ML SYRINGE IV PRN ×2 (14:32→21:22)
[2020-02-02] MEDS: COLLAGENASE 250 UNIT/GM OINTMENT 30 GM TUBE TOPICAL SCH (14:32)
--- NOTE | 2020-02-02 16:21 | P.PN ---
Subjective Progress Note Date: 02/02/20 Alexandro Juares is a 45-year-old male well-known to my practice who presented to [facility] emergency room was a chief complaint of left lower extremity swelling pain and open ulcer in the left pretibial area he was evaluated in emergency room and was started on IV antibiotic and was admitted to medical floor. Left lower extremity Doppler was done and revealed evidence of chronic deep venous thrombosis in the left popliteal vein. Patient has a known history of hypertension, hypothyroidism, morbid obesity, osteoarthritis, and history of depression. On 02/01/2020 patient was seen and examined on the medical floor he is alert and oriented in no apparent distress there is copious greenish discharge from his left pretibial ulcer patient still has significant stasis changes and erythema around the ulcer, patient is complaining of pain and discomfort in his left lower extremity otherwise patient denies any complaints there is no fever or chills no headache or dizziness no chest pain no shortness of breath no cough no nausea or vomiting no abdominal pain no diarrhea and no urinary symptoms On 02/02/2020 patient was seen and examined on the medical floor he is feeling better he complains of less pain and pressure in his left lower extremity he is complaining of left shoulder pain he states he had an injury to his left shoulder about a week ago and the pain has been worsening. Otherwise he denies any complaints there is no fever or chills no headache or dizziness no chest p ain no shortness of breath no cough no nausea or vomiting no abdominal pain no diarrhea no burning with urination no frequency or urgency and no hematuria. Objective - Vital Signs Vital signs: Vital Signs Temp 97.7 F 02/02/20 08:28 Pulse 94 02/02/20 08:28 Resp 16 02/02/20 08:28 BP 144/89 02/02/20 08:28 Pulse Ox 94 L 02/02/20 08:28 Intake & Output 02/01/20 02/02/20 02/02/20 18:59 06:59 18:59 Intake Total 240 Balance 240 Intake: Oral 240 Other: Voiding Method Toilet # Voids 3 1 - Exam In general patient is alert and oriented 3 in no apparent distress HEENT head normocephalic and atraumatic Neck is supple no JVD no goiter no lymphadenopathy Chest exam reveals a few scattered crackles no wheezing Cardiac exam reveals regular heart sounds no gallops no murmurs Abdomen is soft nontender no organomegaly with normal bowel sounds Extremity exam reveals 2+ edema bilaterally there is stasis changes in bilateral lower extremities, there is evidence of cellulitis in the left pretibial area with large open ulcer about 1 inch in diameter in the left pretibial area Neurological examination reveals no gross focal deficit - Labs CBC & Chem 7: 02/01/20 06:48 02/01/20 06:48 Labs: Microbiology - Last 24 Hours (Table) 01/30/20 20:15 Blood Culture - Preliminary Blood No Growth after 48 hours 01/30/20 20:07 Gram Stain - Final Leg - Left Wound Culture - Final Staphylococcus aureus Assessment and Plan Plan: 1. Left lower extremity cellulitis with ulcer, leukocytosis on admission white blood count 11.5. Patient was started on IV antibiotics, infectious disease consultation was requested 2. Venous stasis changes, bilateral lower extremities, vascular surgery consultation was requested 3. Underlying history of hypertension, home medications reordered will monitor blood pressure closely 4. Underlying history of hypothyroidism, continue home dose of Synthroid check TSH 5. Underlying history of depression, continue venlafaxine 6. Marked morbid obesity, patient counseled regarding diet and exercise 7. Evidence of chronic deep venous thrombosis on the left in the popliteal vein, patient is on aspirin, and Lovenox vascular surgery consultation requested 8. Recent left shoulder injury with shoulder pain Will check x-ray At this time patient was started on IV antibiotics vancomycin and ceftriaxone Infectious disease and vascular surgery consultation was requested Will follow closely please see orders
--- NOTE | 2020-02-02 18:37 | PN ---
PROGRESS NOTE DATE OF SERVICE: 02/02/2020 REASON FOR FOLLOWUP: Left leg venous stasis ulcer with secondary cellulitis. INTERVAL HISTORY: The patient is currently afebrile. He is breathing comfortably. Overall pain and discomfort to the left leg has decreased. No chest pain. No cough. No abdominal pain or diarrhea. PHYSICAL EXAMINATION: Blood pressure 144/89 with a pulse of 94, temperature is 97.7. He is 94% on room air. General description: The patient is a middle-aged male up in the bed in no distress. Respiratory system: Unlabored breathing. Clear to auscultation. HEART: S1, S2. Regular rate and rhythm. Abdomen soft, no tenderness. Left leg swelling persists, redness has improved. Wound base no significant slough tissue or foul smelling drainage. LAB: Vanco level 16.4, wound culture with MSSA. Blood culture negative. DIAGNOSTIC IMPRESSION AND PLAN: Patient with acute left lower extremity venous stasis ulcer with secondary cellulitis, culture with MSSA. Patient is covered with cefazolin 2 grams q.8 hours to continue local wound care with Aquacel silver dressing and Kannan wrap and monitor clinical course closely. MMODL / IJN: [id number] /
--- NOTE | 2020-02-02 19:01 | XR ---
EXAMINATION TYPE: XR shoulder complete LT DATE OF EXAM: 02/02/2020 COMPARISON: NONE HISTORY: Shoulder pain TECHNIQUE: 3 views FINDINGS: I see no fracture nor dislocation. Joint spaces are normal. There are no pathologic calcifi cations. IMPRESSION: Negative left shoulder exam.
[2020-02-02] MEDS: HYDROcodone/APAP 5-325MG 1 EACH TAB PO PRN (20:00)
[2020-02-02] MEDS: traZODone HCL 100 MG TAB PO SCH (21:18)
[2020-02-03] MEDS: LEVOTHYROXINE 25 MCG TAB PO SCH (05:59)
[2020-02-03] MEDS: HYDROcodone/APAP 5-325MG 1 EACH TAB PO PRN (05:59)
[2020-02-03 06:48] LABS: Basophils # (A) 0.1 k/uL (0-0.2); Basophils % (A) 1 %; Eosinophils # (A) 0.3 k/uL (0-0.7); Eosinophils % (A) 4 %; HCT 43.4 % (39.0-53.0); HGB 13.7 gm/dL (13.0-17.5); Lymphocytes # (A) 1.8 k/uL (1.0-4.8); Lymphocytes % (A) 21 %; MCH 29.6 pg (25.0-35.0); MCHC 31.6 g/dL (31.0-37.0); MCV 93.8 fL (80.0-100.0); Mean Platelet Volume 6.8; Monocytes # (A) 0.8 k/uL (0-1.0); Monocytes % (A) 10 %; Neutrophils # (A) 5.2 k/uL (1.3-7.7); Neutrophils % (A) 62 %; Platelet Count 378 k/uL (150-450); RBC 4.63 m/uL (4.30-5.90); RDW 13.3 % (11.5-15.5); WBC 8.4 k/uL (3.8-10.6)
[2020-02-03 06:58] LABS: ALT 27 U/L (4-49); AST 27 U/L (17-59); African American GFR (CKD) >90 (>60 ml/min/1.73 sqM); Albumin 3.3 g/dL (3.5-5.0); Alkaline Phosphatase 107 U/L (38-126); Anion Gap 6 mmol/L; Blood Urea Nitrogen 11 mg/dL (9-20); Calcium 8.5 mg/dL (8.4-10.2); Carbon Dioxide 26 mmol/L (22-30); Chloride 105 mmol/L (98-107); Glucose 95 mg/dL (74-99); Non-African American GFR(CKD) >90 (>60 ml/min/1.73 sqM); Potassium 4.1 mmol/L (3.5-5.1); Sodium 137 mmol/L (137-145); Total Bilirubin 0.2 mg/dL (0.2-1.3); Total Protein 6.4 g/dL (6.3-8.2)
[2020-02-03] MEDS: ASPIRIN 81 MG PO SCH (08:30)
[2020-02-03] MEDS: COLLAGENASE 250 UNIT/GM OINTMENT 30 GM TUBE TOPICAL SCH (08:30)
[2020-02-03] MEDS: NICOTINE 21MG/24HR PATCH TRANSDERM SCH (08:30)
[2020-02-03] MEDS: amLODIPine 5 MG TAB PO SCH (08:30)
[2020-02-03] MEDS: VENLAFAXINE HCL ER 150 MG CAP PO SCH (08:31)
[2020-02-03] MEDS: FUROSEMIDE 20 MG TAB PO SCH (08:31)
[2020-02-03] MEDS: POTASSIUM CHLORIDE ER 10 MEQ TAB.ER.PRT PO SCH (08:31)
[2020-02-03] MEDS: MORPHINE SULFATE 4 MG/ML SYRINGE IV PRN ×3 (08:42→19:48)
--- NOTE | 2020-02-03 14:09 | P.PN ---
Subjective Progress Note Date: 02/03/20 Alexandro Juares is a 45-year-old male well-known to my practice who presented to [facility] emergency room was a chief complaint of left lower extremity swelling pain and open ulcer in the left pretibial area he was evaluated in emergency room and was started on IV antibiotic and was admitted to medical floor. Left lower extremity Doppler was done and revealed evidence of chronic deep venous thrombosis in the left popliteal vein. Patient has a known history of hypertension, hypothyroidism, morbid obesity, osteoarthritis, and history of depression. On 02/01/2020 patient was seen and examined on the medical floor he is alert and oriented in no apparent distress there is copious greenish discharge from his left pretibial ulcer patient still has significant stasis changes and erythema around the ulcer, patient is complaining of pain and discomfort in his left lower extremity otherwise patient denies any complaints there is no fever or chills no headache or dizziness no chest pain no shortness of breath no cough no nausea or vomiting no abdominal pain no diarrhea and no urinary symptoms On 02/02/2020 patient was seen and examined on the medical floor he is feeling better he complains of less pain and pressure in his left lower extremity he is complaining of left shoulder pain he states he had an injury to his left shoulder about a week ago and the pain has been worsening. Otherwise he denies any complaints there is no fever or chills no headache or dizziness no chest p ain no shortness of breath no cough no nausea or vomiting no abdominal pain no diarrhea no burning with urination no frequency or urgency and no hematuria. On 02/03/2020 patient was seen and examined on the medical floor he is alert and oriented 3 pain and discomfort in the left lower extremity is improving patient still has a large open wound about 2 inches in diameter with extensive greenish exudate, otherwise patient denies any other complaints there is no fever or chills no headache or dizziness no chest pain no shortness of breath no cough no nausea or vomiting no abdominal pain no diarrhea and no urinary symptoms Objective - Vital Signs Vital signs: Vital Signs Temp 98.5 F 02/03/20 09:00 Pulse 67 02/03/20 09:00 Resp 16 02/03/20 09:00 BP 138/87 02/03/20 09:00 Pulse Ox 95 02/03/20 09:00 Intake & Output 0502/03/20 02/03/20 18:59 06:59 18:59 Intake Total 480 400 Output Total 1100 Balance 480 -700 Intake: Oral 480 400 Output: Urine 1100 Other: # Voids 1 - Exam In general patient is alert and oriented 3 in no apparent distress HEENT head normocephalic and atraumatic Neck is supple no JVD no goiter no lymphadenopathy Chest exam reveals a few scattered crackles no wheezing Cardiac exam reveals regular heart sounds no gallops no murmurs Abdomen is soft nontender no organomegaly with normal bowel sounds Extremity exam reveals 2+ edema bilaterally there is stasis changes in bilateral lower extremities, there is evidence of cellulitis in the left pretibial area with large open ulcer about 1 inch in diameter in the left pretibial area Neurological examination reveals no gross focal deficit - Labs CBC & Chem 7: 02/03/20 06:14 02/03/20 06:14 Labs: Abnormal Lab Results - Last 24 Hours (Table) 02/03/20 Range/Units 06:14 Albumin 3.3 L (3.5-5.0) g/dL Microbiology - Last 24 Hours (Table) 01/30/20 20:15 Blood Culture - Preliminary Blood No Growth after 72 hours Assessment and Plan Plan: 1. Left lower extremity cellulitis with ulcer, leukocytosis on admission white blood count 11.5. Patient was started on IV antibiotics, infectious disease consultation was requested 2. Venous stasis changes, bilateral lower extremities, vascular surgery consultation was requested 3. Underlying history of hypertension, home medications reordered will monitor blood pressure closely 4. Underlying history of hypothyroidism, continue home dose of Synthroid check TSH 5. Underlying history of depression, continue venlafaxine 6. Marked morbid obesity, patient counseled regarding diet and exercise 7. Evidence of chronic deep venous thrombosis on the left in the popliteal vein, patient is on aspirin, and Lovenox vascular surgery consultation requested 8. Recent left shoulder injury with shoulder pain Will check x-ray At this time patient was started on IV antibiotics vancomycin and ceftriaxone Infectious disease and vascular surgery consultation was requested Will follow closely please see orders
[2020-02-03] MEDS: ENOXAPARIN 40 MG/0.4 ML SYRINGE SQ SCH (15:18)
[2020-02-03] MEDS: traZODone HCL 100 MG TAB PO SCH (20:59)
--- NOTE | 2020-02-03 23:49 | PN ---
PROGRESS NOTE DATE OF SERVICE: 02/03/2020 REASON FOR FOLLOWUP: Left leg venous stasis ulcer with secondary cellulitis MSSA. INTERVAL HISTORY: The patient is currently afebrile. Patient has been breathing comfortably. Denies having any chest pain or any cough. Abdominal pain and pain discomfort to the left leg has improved. PHYSICAL EXAMINATION: Blood pressure 119/81 with a pulse of 91, temperature 98.7. He is 97% on room air. General description is a middle-aged male lying in bed in no distress. RESPIRATORY SYSTEM: Unlabored breathing, clear to auscultation. HEART: S1, S2. Regular rate and rhythm. ABDOMEN: Soft, no tenderness, Left leg swelling persists. Redness resolved. Wound with some slough tissue. LABS: Hemoglobin 13.7, white count 8.4, BUN of 11, creatinine 0.76. Wound culture with MSSA. Blood culture has been negative. DIAGNOSTIC IMPRESSION AND PLAN: Patient with left leg venous stasis ulcer with secondary cellulitis, culture with MSSA. The patient on cefazolin. Patient has been asking for PICC line and IV antibiotic as mentioned by his PCP. We will check his coverage before placing a PICC line. Continue cefazolin. Local wound care switched to Santyl followed by moist dressing along with Kannan wrap to be changed daily. MMODL / IJN: [id number] /
[2020-02-04] MEDS: HYDROcodone/APAP 5-325MG 1 EACH TAB PO PRN ×4 (05:47→20:45)
[2020-02-04] MEDS: LEVOTHYROXINE 25 MCG TAB PO SCH (05:48)
[2020-02-04 08:01] LABS: Basophils # (A) 0.1 k/uL (0-0.2); Basophils % (A) 1 %; Eosinophils # (A) 0.4 k/uL (0-0.7); Eosinophils % (A) 5 %; HCT 46.5 % (39.0-53.0); HGB 14.6 gm/dL (13.0-17.5); Lymphocytes # (A) 1.3 k/uL (1.0-4.8); Lymphocytes % (A) 18 %; MCH 29.6 pg (25.0-35.0); MCHC 31.5 g/dL (31.0-37.0); Mean Platelet Volume 6.9; Monocytes # (A) 0.7 k/uL (0-1.0); Monocytes % (A) 9 %; Neutrophils # (A) 4.8 k/uL (1.3-7.7); Neutrophils % (A) 65 %; Platelet Count 412 k/uL (150-450); RBC 4.95 m/uL (4.30-5.90); RDW 13.3 % (11.5-15.5); WBC 7.4 k/uL (3.8-10.6)
[2020-02-04 08:14] LABS: ALT 28 U/L (4-49); AST 28 U/L (17-59); African American GFR (CKD) >90 (>60 ml/min/1.73 sqM); Albumin 3.4 g/dL (3.5-5.0); Alkaline Phosphatase 107 U/L (38-126); Anion Gap 5 mmol/L; Blood Urea Nitrogen 13 mg/dL (9-20); Calcium 8.8 mg/dL (8.4-10.2); Carbon Dioxide 29 mmol/L (22-30); Chloride 104 mmol/L (98-107); Glucose 101 mg/dL (74-99); Non-African American GFR(CKD) >90 (>60 ml/min/1.73 sqM); Potassium 4.8 mmol/L (3.5-5.1); Sodium 138 mmol/L (137-145); Total Bilirubin 0.3 mg/dL (0.2-1.3); Total Protein 6.6 g/dL (6.3-8.2)
[2020-02-04] MEDS: traMADol 50 MG TAB PO PRN (08:50)
[2020-02-04] MEDS: FUROSEMIDE 20 MG TAB PO SCH (08:51)
[2020-02-04] MEDS: ENOXAPARIN 40 MG/0.4 ML SYRINGE SQ SCH (08:51)
[2020-02-04] MEDS: POTASSIUM CHLORIDE ER 10 MEQ TAB.ER.PRT PO SCH (08:53)
[2020-02-04] MEDS: ASPIRIN 81 MG PO SCH (08:53)
[2020-02-04] MEDS: VENLAFAXINE HCL ER 150 MG CAP PO SCH (08:53)
[2020-02-04] MEDS: amLODIPine 5 MG TAB PO SCH (08:53)
[2020-02-04] MEDS: COLLAGENASE 250 UNIT/GM OINTMENT 30 GM TUBE TOPICAL SCH (10:53)
[2020-02-04] MEDS: NICOTINE 21MG/24HR PATCH TRANSDERM SCH (10:53)
[2020-02-04] MEDS: MORPHINE SULFATE 4 MG/ML SYRINGE IV PRN ×2 (11:02→17:35)
--- NOTE | 2020-02-04 16:53 | P.PN ---
Subjective Progress Note Date: 02/04/20 Alexandro Juares is a 45-year-old male well-known to my practice who presented to [facility] emergency room was a chief complaint of left lower extremity swelling pain and open ulcer in the left pretibial area he was evaluated in emergency room and was started on IV antibiotic and was admitted to medical floor. Left lower extremity Doppler was done and revealed evidence of chronic deep venous thrombosis in the left popliteal vein. Patient has a known history of hypertension, hypothyroidism, morbid obesity, osteoarthritis, and history of depression. On 02/01/2020 patient was seen and examined on the medical floor he is alert and oriented in no apparent distress there is copious greenish discharge from his left pretibial ulcer patient still has significant stasis changes and erythema around the ulcer, patient is complaining of pain and discomfort in his left lower extremity otherwise patient denies any complaints there is no fever or chills no headache or dizziness no chest pain no shortness of breath no cough no nausea or vomiting no abdominal pain no diarrhea and no urinary symptoms On 02/02/2020 patient was seen and examined on the medical floor he is feeling better he complains of less pain and pressure in his left lower extremity he is complaining of left shoulder pain he states he had an injury to his left shoulder about a week ago and the pain has been worsening. Otherwise he denies any complaints there is no fever or chills no headache or dizziness no chest p ain no shortness of breath no cough no nausea or vomiting no abdominal pain no diarrhea no burning with urination no frequency or urgency and no hematuria. On 02/03/2020 patient was seen and examined on the medical floor he is alert and oriented 3 pain and discomfort in the left lower extremity is improving patient still has a large open wound about 2 inches in diameter with extensive greenish exudate, otherwise patient denies any other complaints there is no fever or chills no headache or dizziness no chest pain no shortness of breath no cough no nausea or vomiting no abdominal pain no diarrhea and no urinary symptoms On 02/04/2020 patient was seen and examined on the medical floor, he is complaining of pain and discomfort in the left lower extremity he still has a large open wound about 2 inches in diameter with extensive greenish exudate, otherwise patient denies any other complaints there is no fever or chills no headache or dizziness no chest pain no shortness of breath no cough no nausea or vomiting no abdominal pain no diarrhea and no urinary symptoms Objective - Vital Signs Vital signs: Vital Signs Temp 98.2 F 02/04/20 14:45 Pulse 90 02/04/20 14:45 Resp 18 02/04/20 14:45 BP 139/84 02/04/20 14:45 Pulse Ox 94 L 02/04/20 14:45 Intake & Output 02/03/20 02/04/20 02/04/20 18:59 06:59 18:59 Intake Total 456 809 8386 Balance 410 874 0041 Intake: Oral 147 023 5690 Other: Voiding Method Toilet # Voids 2 1 - Exam In general patient is alert and oriented 3 in no apparent distress HEENT head normocephalic and atraumatic Neck is supple no JVD no goiter no lymphadenopathy Chest exam reveals a few scattered crackles no wheezing Cardiac exam reveals regular heart sounds no gallops no murmurs Abdomen is soft nontender no organomegaly with normal bowel sounds Extremity exam reveals 2+ edema bilaterally there is stasis changes in bilateral lower extremities, there is evidence of cellulitis in the left pretibial area with large open ulcer about 1 inch in diameter in the left pretibial area Neurological examination reveals no gross focal deficit - Labs CBC & Chem 7: 02/04/20 07:27 02/04/20 07:27 Labs: Abnormal Lab Results - Last 24 Hours (Table) 02/04/20 Range/Units 07:27 Glucose 101 H (74-99) mg/dL Albumin 3.4 L (3.5-5.0) g/dL Microbiology - Last 24 Hours (Table) 01/30/20 20:15 Blood Culture - Preliminary Blood No Growth after 96 hours Assessment and Plan Plan: 1. Left lower extremity cellulitis with ulcer, leukocytosis on admission white blood count 11.5. Patient was started on IV antibiotics, infectious disease consultation was requested 2. Venous stasis changes, bilateral lower extremities, vascular surgery consultation was requested 3. Underlying history of hypertension, home medications reordered will monitor blood pressure closely 4. Underlying history of hypothyroidism, continue home dose of Synthroid check TSH 5. Underlying history of depression, continue venlafaxine 6. Marked morbid obesity, patient counseled regarding diet and exercise 7. Evidence of chronic deep venous thrombosis on the left in the popliteal vein, patient is on aspirin, and Lovenox vascular surgery consultation requested 8. Recent left shoulder injury with shoulder pain Will check x-ray At this time patient was started on IV antibiotics vancomycin and ceftriaxone Infectious disease and vascular surgery consultation was requested Will follow closely please see orders
--- NOTE | 2020-02-04 19:17 | PN ---
PROGRESS NOTE DATE OF SERVICE: 02/04/2020 REASON FOR FOLLOWUP: Left leg venostasis ulcer with secondary cellulitis MSSA. INTERVAL HISTORY: The patient is currently afebrile. The patient has been breathing comfortably. Denies having any chest pain or any cough. Pain to the left leg, but no worsening. Swelling persists. Redness has improved. PHYSICAL EXAMINATION: Blood pressure 139/84 with a pulse of 90, temperature 98.2. He is 94% on room air. General description is a middle-aged male up in the bed in no distress. RESPIRATORY SYSTEM: Unlabored breathing. Clear to auscultation anteriorly. HEART: S1, S2. Regular rate and rhythm. ABDOMEN: Soft. No tenderness. Left leg is currently dressed up. No drainage on the dressing. LABS: Hemoglobin is 14.6, white count 7.4, BUN of 13, creatinine 0.84. DIAGNOSTIC IMPRESSION AND PLAN: Patient with left leg venostasis ulcer with secondary cellulitis, culture with methicillin-susceptible Staphylococcus aeruginosa. The patient seems to have shown some clinical improvement. Waiting for the insurance evaluation for outpatient antibiotic. Continue with cefazolin and local care to continue with Santyl. Monitor clinical course closely. MMODL / IJN: [id number] /
[2020-02-04] MEDS: traZODone HCL 100 MG TAB PO SCH (20:45)
[2020-02-05 03:41] VITALS: TEMP 97.8
[2020-02-05] MEDS: LEVOTHYROXINE 25 MCG TAB PO SCH (05:27)
[2020-02-05] MEDS: MORPHINE SULFATE 4 MG/ML SYRINGE IV PRN (07:45)
[2020-02-05 08:25] VITALS: BP 145/98; PULSE 105; RESP 16
[2020-02-05] MEDS: ENOXAPARIN 40 MG/0.4 ML SYRINGE SQ SCH (08:30)
[2020-02-05] MEDS: ASPIRIN 81 MG PO SCH (08:31)
[2020-02-05] MEDS: FUROSEMIDE 20 MG TAB PO SCH (08:31)
[2020-02-05] MEDS: amLODIPine 5 MG TAB PO SCH (08:31)
[2020-02-05] MEDS: POTASSIUM CHLORIDE ER 10 MEQ TAB.ER.PRT PO SCH (08:31)
[2020-02-05] MEDS: COLLAGENASE 250 UNIT/GM OINTMENT 30 GM TUBE TOPICAL SCH (08:31)
[2020-02-05] MEDS: VENLAFAXINE HCL ER 150 MG CAP PO SCH (08:31)
[2020-02-05] MEDS: NICOTINE 21MG/24HR PATCH TRANSDERM SCH (08:31)
[2020-02-05] MEDS: HYDROcodone/APAP 5-325MG 1 EACH TAB PO PRN ×2 (08:36→14:40)
--- NOTE | 2020-02-05 14:21 | P.DS ---
Providers Date of admission: 01/30/20 22:21 Expected date of discharge: 02/05/20 Attending physician: Maria Elena Rico Consults: 01/31/20 14:25 Consult Physician Routine Consulting Provider: Thelma Guillen Consult Reason/Comments: lower extremity cellulitis Do you want consulting provider notified?: Yes 01/31/20 14:26 Consult Physician Routine Consulting Provider: Davian Samano Consult Reason/Comments: lower extrmity ulcer Do you want consulting provider notified?: Yes Primary care physician: Maria Elenajakub Rico [facility] Course: Diagnosis on discharge: 1. Left lower extremity cellulitis with ulcer, leukocytosis on admission white blood count 11.5. Patient was started on IV antibiotics, infectious disease consultation was requested 2. Venous stasis changes, bilateral lower extremities, vascular surgery consultation was requested 3. Underlying history of hypertension, home medications reordered will monitor blood pressure closely 4. Underlying history of hypothyroidism, continue home dose of Synthroid check TSH 5. Underlying history of depression, continue venlafaxine 6. Marked morbid obesity, patient counseled regarding diet and exercise 7. Evidence of chronic deep venous thrombosis on the left in the popliteal vein, patient is on aspirin, and Lovenox vascular surgery consultation requested 8. Recent left shoulder injury with shoulder pain Will check x-ray 9. Tobacco abuse patient was counseled in length during this admission counseled more than 5 minutes to quit smoking he was given nicotine patches 21 g during this admission. He was also given a prescription for nicotine patches 21 g at the time of discharge. Hospital course: Alexandro Juares is a 45-year-old male well-known to my practice who presented to [facility] emergency room was a chief complaint of left lower extremity swelling pain and open ulcer in the left pretibial area he was evaluated in emergency room and was started on IV antibiotic and was admitted to medical floor. Left lower extremity Doppler was done and revealed evidence of chronic deep venous thrombosis in the left popliteal vein. Patient has a known history of hypertension, hypothyroidism, morbid obesity, osteoarthritis, and history of depression. On 02/01/2020 patient was seen and examined on the medical floor he is alert and oriented in no apparent distress there is copious greenish discharge from his left pretibial ulcer patient still has significant stasis changes and erythema around the ulcer, patient is complaining of pain and discomfort in his left lower extremity otherwise patient denies any complaints there is no fever or chills no headache or dizziness no chest pain no shortness of breath no cough no nausea or vomiting no abdominal pain no diarrhea and no urinary symptoms On 02/02/2020 patient was seen and examined on the medical floor he is feeling better he complains of less pain and pressure in his left lower extremity he is complaining of left shoulder pain he states he had an injury to his left shoulder about a week ago and the pain has been worsening. Otherwise he denies any complaints there is no fever or chills no headache or dizziness no chest pain no shortness of breath no cough no nausea or vomiting no abdominal pain no diarrhea no burning with urination no frequency or urgency and no hematuria. On 02/03/2020 patient was seen and examined on the medical floor he is alert and oriented 3 pain and discomfort in the left lower extremity is improving patient still has a large open wound about 2 inches in diameter with extensive greenish exudate, otherwise patient denies any other complaints there is no fever or chills no headache or dizziness no chest pain no shortness of breath no cough no nausea or vomiting no abdominal pain no diarrhea and no urinary symptoms On 02/04/2020 patient was seen and examined on the medical floor, he is complaining of pain and discomfort in the left lower extremity he still has a large open wound about 2 inches in diameter with extensive greenish exudate, otherwise patient denies any other complaints there is no fever or chills no headache or dizziness no chest pain no shortness of breath no cough no nausea or vomiting no abdominal pain no diarrhea and no urinary symptoms On 02/05/2020 patient was seen and examined on the medical floor he is alert and oriented 3 in no apparent distress pain and discomfort in the left lower extremity is improving patient still has a large open ulcer in the left pretibial area. Patient will be discharged home today he will receive IV antibiotic at home through a midline, he will be on Rocephin 2 g IV every 24 hours per recommendation of infectious disease. Patient will follow-up in our office within 1 week he will also follow-up was Dr. Guillen infectious disease in one week. Patient Condition at Discharge: Fair Plan - Discharge Summary Discharge Rx Participant: Yes New Discharge Prescriptions: New cefTRIAXone [Rocephin] 2,000 mg IVP Q24HR #14 vial Nicotine 21Mg/24Hr Patch [Habitrol] 1 patch TRANSDERM DAILY patch Continue amLODIPine [Norvasc] 5 mg PO DAILY Venlafaxine HCl ER [Effexor XR] 150 mg PO DAILY Aspirin [Adult Low Dose Aspirin EC] 81 mg PO DAILY Potassium Chloride 10 meq PO DAILY Levothyroxine Sodium 25 mcg PO DAILY Furosemide [Lasix] 20 mg PO DAILY traMADol HCL 50 mg PO TID PRN PRN Reason: Pain Ibuprofen [Motrin] 600 mg PO Q12H PRN PRN Reason: Pain traZODone HCL [Desyrel] 100 mg PO HS Discharge Medication List Venlafaxine HCl ER [Effexor XR] 150 mg PO DAILY 07/03/18 [History] amLODIPine [Norvasc] 5 mg PO DAILY 07/03/18 [History] Aspirin [Adult Low Dose Aspirin EC] 81 mg PO DAILY 05/31/19 [History] Furosemide [Lasix] 20 mg PO DAILY 05/31/19 [History] Levothyroxine Sodium 25 mcg PO DAILY 05/31/19 [History] Potassium Chloride 10 meq PO DAILY 05/31/19 [History] Ibuprofen [Motrin] 600 mg PO Q12H PRN 01/30/20 [History] traMADol HCL 50 mg PO TID PRN 01/30/20 [History] traZODone HCL [Desyrel] 100 mg PO HS 01/30/20 [History] Nicotine 21Mg/24Hr Patch [Habitrol] 1 patch TRANSDERM DAILY patch 02/05/20 [Rx] cefTRIAXone [Rocephin] 2,000 mg IVP Q24HR #14 vial 02/05/20 [Rx] Follow up Appointment(s)/Referral(s): [facility],Infusion [NON-STAFF] - 02/06/20 2:30 pm (Please attend daily appointments at [facility] for IV infusions until complete) Maria Elena Rico MD [Primary Care Provider] - 1-2 days Thelma Guillen MD [STAFF PHYSICIAN] - 2 Weeks
--- NOTE | 2020-02-05 15:08 | PN ---
PROGRESS NOTE DATE OF SERVICE: 02/05/2020 REASON FOR FOLLOW UP: Left leg venostasis ulcer with secondary cellulitis. INTERVAL HISTORY: The patient is currently afebrile, patient is breathing comfortably. Patient denies having any chest pain or cough. No nausea, vomiting, abdominal pain and the patient left leg pain has improved. PHYSICAL EXAMINATION: Blood pressure 145/98 with a pulse of 105, temperature 97.8%. General description is a middle-aged male, up in the bed in no distress. RESPIRATORY SYSTEM: Unlabored, breathing clear to auscultation. ANTERIORLY heart S1, S2. Regular rate. ABDOMEN: Soft. No tenderness. BS left leg is currently dressed up. LABS: No new labs have been obtained today. Blood culture was negative local culture with MSSA. DIAGNOSTIC IMPRESSION AND PLAN: Patient with left leg wound with secondary cellulitis culture positive for MSSA the patient got a midline antibiotic was switched over to Rocephin 2 g daily to continue for about 2 weeks. Local care with Santyl and followup in the office in 2 weeks. Continue supportive care. MMODL / IJN: [id number] /
== END 2020-02-05 15:34 | disposition home or self-care (01) | DRG 300 ==
LOC: EC 19:13 → 4SSUR 22:21
PROVIDERS: ADMIT Internal Medicine; ATTEND Internal Medicine
DX: I87.2 Venous insufficiency (chronic) (peripheral) (principal); L97.829 Non-pressure chronic ulcer of other part of left lower leg with unspecified severity; L03.116 Cellulitis of left lower limb; Z68.42 Body mass index [BMI] 45.0-49.9, adult; I82.502 Chronic embolism and thrombosis of unspecified deep veins of left lower extremity; B95.61 Methicillin susceptible Staphylococcus aureus infection as the cause of diseases classified elsewhere; E03.9 Hypothyroidism, unspecified; E66.01 Morbid (severe) obesity due to excess calories; F12.90 Cannabis use, unspecified, uncomplicated; F17.200 Nicotine dependence, unspecified, uncomplicated; F32.9 Major depressive disorder, single episode, unspecified; F41.9 Anxiety disorder, unspecified; I10 Essential (primary) hypertension; Z79.82 Long term (current) use of aspirin; Z79.890 Hormone replacement therapy; Z79.899 Other long term (current) drug therapy; Z82.49 Family history of ischemic heart disease and other diseases of the circulatory system; Z82.5 Family history of asthma and other chronic lower respiratory diseases; Z83.3 Family history of diabetes mellitus; Z86.711 Personal history of pulmonary embolism; Z96.653 Presence of artificial knee joint, bilateral; Z79.1 Long term (current) use of non-steroidal anti-inflammatories (NSAID); Z11.59 Encounter for screening for other viral diseases; M25.519 Pain in unspecified shoulder; Z71.6 Tobacco abuse counseling
CPT/HCPCS: 36410; 36415; 76937; 80053; 80202; 83036; 84443; 85025; 85610; 85730; 87040; 87070; 87077; 87186; 87205; 87635; 96365; 96366; 96375; 96376; 99285

== ENCOUNTER 2020-07-23 16:08 | Inpatient (IN) | payer OTHER ==
[2020-07-23] MEDS ORDERED: SODIUM CHLORIDE 0.9% 500 ML 500 ML IV ONE (16:46)
[2020-07-23] MEDS ORDERED: VANCOMYCIN IV PER PHARMACY 1 EACH MISC MISCELLANE PRN ×2 (16:47→22:50)
[2020-07-23] MEDS ORDERED: AMPICILLIN-SULBACTAM 3 GM in SODIUM CHLORIDE 0.9% 100 ML IVPB STA (16:47)
[2020-07-23] MEDS ORDERED: MORPHINE SULFATE 4 MG/ML SYRINGE IVP STA (16:48)
[2020-07-23] MEDS ORDERED: VANCOMYCIN 2,500 MG in SODIUM CHLORIDE 0.9% 500 ML 500 ML IVPB ONE (17:30)
--- NOTE | 2020-07-23 17:30 | XR ---
Result: Clinical History: Nonhealing wound. Comparison: None available. Technique: Frontal and lateral views of the left tibia and fibula. Findings: The bone mineralization is appropriate for age. There is soft tissue edema about the imaged leg and ankle. No soft tissue gas or radiographic evidenc e for osteomyelitis. There is no acute fracture or dislocation. The visualized osseous structures ar e in anatomic alignment. Mild to moderate osteoarthritis of the tibiotalar joint with multiple small osteophytes present. Impression: No acute osseous abnormality.
[2020-07-23 17:36] LABS: Basophils # (A) 0.1 k/uL (0-0.2); Basophils % (A) 1 %; Eosinophils # (A) 0.2 k/uL (0-0.7); Eosinophils % (A) 1 %; HCT 47.5 % (39.0-53.0); HGB 15.4 gm/dL (13.0-17.5); Lymphocytes # (A) 1.4 k/uL (1.0-4.8); Lymphocytes % (A) 12 %; MCH 30.9 pg (25.0-35.0); MCHC 32.4 g/dL (31.0-37.0); MCV 95.4 fL (80.0-100.0); Mean Platelet Volume 6.7; Monocytes # (A) 0.9 k/uL (0-1.0); Monocytes % (A) 8 %; Neutrophils # (A) 8.8 k/uL (1.3-7.7); Neutrophils % (A) 76 %; Platelet Count 344 k/uL (150-450); RBC 4.99 m/uL (4.30-5.90); RDW 13.6 % (11.5-15.5); WBC 11.6 k/uL (3.8-10.6)
[2020-07-23 17:53] LABS: ALT 29 U/L (4-49); AST 32 U/L (17-59); African American GFR (CKD) >90 (>60 ml/min/1.73 sqM); Albumin 3.7 g/dL (3.5-5.0); Alkaline Phosphatase 103 U/L (38-126); Anion Gap 5 mmol/L; Blood Urea Nitrogen 14 mg/dL (9-20); C Reactive Protein 24.7 mg/L (<10.0); Calcium 8.8 mg/dL (8.4-10.2); Carbon Dioxide 25 mmol/L (22-30); Chloride 106 mmol/L (98-107); Glucose 97 mg/dL (74-99); Non-African American GFR(CKD) >90 (>60 ml/min/1.73 sqM); Potassium 4.3 mmol/L (3.5-5.1); Sodium 136 mmol/L (137-145); Total Bilirubin 0.6 mg/dL (0.2-1.3)
--- NOTE | 2020-07-23 18:13 | US ---
EXAMINATION TYPE: US venous doppler duplex LE LT DATE OF EXAM: 07/23/2020 5:51 PM COMPARISON: NONE CLINICAL HISTORY: swelling, hx dvt. edema and pain left leg. wound left lower leg. history of DVT SIDE PERFORMED: left TECHNIQUE: The lower extremity deep venous system is examined utilizing real time linear array sonog iraida with graded compression, doppler sonography and color-flow sonography. VESSELS IMAGED: External Iliac Vein (EIV) Common Femoral Vein Deep Femoral Vein Greater Saphenous Vein * Femoral Vein Popliteal Vein Small Saphenous Vein * Proximal Calf Veins (* superficial vessels) Left Leg: positive for DVT, thready flow with partial compression left popliteal vein IMPRESSION: Nonocclusive DVT of the left popliteal vein, probably chronic, given prior DVT history provided by [facility] ER physician.
[2020-07-23] MEDS ORDERED: HEPARIN SODIUM,PORCINE 10,000 UNIT/ML 1 ML VIAL IV ONE (18:40)
[2020-07-23] MEDS ORDERED: HEPARIN SODIUM,PORCINE 5,000 UNIT/ML 1 ML VIAL IV PRN (18:40)
[2020-07-23] MEDS: HEPARIN SOD,PORK IN 0.45% NACL 25,000 UNIT in 0.45% NACL 1 250ML.BAG IV SCH (18:56)
[2020-07-23] MEDS ORDERED: NALOXONE 0.4 MG/ML 1 ML VIAL IV PRN (19:01)
--- NOTE | 2020-07-23 19:01 | ED ---
Extremity Problem HPI - General Chief complaint: Extremity Problem,Nontraumatic Stated complaint: wound on leg Time Seen by Provider: 07/23/20 16:10 Source: patient Mode of arrival: ambulatory Limitations: no limitations - History of Present Illness Initial comments: Patient is a 45-year-old male with past medical history of DVT, chronic venous stasis ulcer who presents emergency department with reported swelling, pain and ulceration to the left lower extremity. Patient states that he was seen at the wound care clinic for several years in regards to his lower extremity wounds. States that they cleared up very well approximate one year ago. 3 weeks ago the patient began having increased pain and noted that the ulcer on his left lower extremity once again opened up. He was having pustular and serosanguineous drainage. He has had increased swelling. Does have a history of DVT in the popliteal region on this leg. Currently not on any anticoagulation. Patient denies any fevers or chills. He made an appointment to follow up with the wound care clinic however they called and canceled his appointment which was scheduled for tomorrow. States the wound care clinic will be closed until further notice. Patient was concerned as he normally receives IV antibiotics when his ulcers get bad and therefore he came into the emergency room for evaluation. - Related Data Home Medications Medication Instructions Recorded Confirmed Venlafaxine HCl ER [Effexor XR] 150 mg PO DAILY 07/03/18 07/23/20 amLODIPine [Norvasc] 5 mg PO DAILY 07/03/18 07/23/20 Aspirin [Adult Low Dose Aspirin EC] 81 mg PO DAILY 05/31/19 07/23/20 Furosemide [Lasix] 20 mg PO DAILY 05/31/19 07/23/20 Levothyroxine Sodium 25 mcg PO DAILY 05/31/19 07/23/20 Potassium Chloride 10 meq PO DAILY 05/31/19 07/23/20 Ibuprofen [Motrin] 600 mg PO Q12H PRN 01/30/20 07/23/20 traMADol HCL 50 mg PO TID PRN 01/30/20 07/23/20 traZODone HCL [Desyrel] 100 mg PO HS 01/30/20 07/23/20 SILVER sulfADIAZINE Cream 1 applic TOPICAL DAILY 07/23/20 07/23/20 [Silvadene 1% Cream] Previous Rx's Medication Instructions Recorded Nicotine 14Mg/24Hr Patch [Habitrol] 1 patch TRANSDERM DAILY patch 07/28/20 Sulfamethox-Tmp 800-160Mg [Bactrim 1 tab PO Q12HR 19 Days #20 tab 07/28/20 DS 800-160 mg] Allergies Allergy/AdvReac Type Severity Reaction Status Date / Time No Known Allergies Allergy Verified 07/23/20 17:56 Review of Systems ROS Statement: Those systems with pertinent positive or pertinent negative responses have been documented in the HPI. ROS Other: All systems not noted in ROS Statement are negative. Past Medical History Past Medical History: Chest Pain / Angina, Deep Vein Thrombosis (DVT), GI Bleed, Hypertension, Osteoarthritis (OA), Pulmonary Embolus (PE), Skin Disorder, Thyroid Disorder Additional Past Medical History / Comment(s): psoriasis, enlarged heart, oswood- schlatter disease History of Any Multi-Drug Resistant Organisms: None Reported Past Surgical History: Joint Replacement, Orthopedic Surgery Additional Past Surgical History / Comment(s): Left knee surgery for myles- schlatter disease. Right knee scope, helene knee replacement Past Anesthesia/Blood Transfusion Reactions: No Reported Reaction Past Psychological History: Anxiety, Depression Smoking Status: Current every day smoker Past Alcohol Use History: Occasional Past Drug Use History: Marijuana - Past Family History Mother Family Medical History: Asthma, Blood Disorder, CVA/TIA, Diabetes Mellitus, GERD/Reflux, Hypertension, Memory Impairment, Osteoarthritis (OA), Renal Disease Additional Family Medical History / Comment(s): brain aneurysm General Exam Limitations: no limitations General appearance: alert, in no apparent distress, obese Head exam: Present: atraumatic, normocephalic, normal inspection Eye exam: Present: normal appearance, PERRL, EOMI. Absent: scleral icterus, conjunctival injection, periorbital swelling ENT exam: Present: normal exam, mucous membranes moist Neck exam: Present: normal inspection. Absent: tenderness, meningismus, lymphadenopathy Respiratory exam: Present: normal lung sounds bilaterally. Absent: respiratory distress, wheezes, rales, rhonchi, stridor Cardiovascular Exam: Present: regular rate, normal rhythm, normal heart sounds. Absent: systolic murmur, diastolic murmur, rubs, gallop, clicks GI/Abdominal exam: Present: soft, normal bowel sounds. Absent: distended, tenderness, guarding, rebound, rigid Extremities exam: Present: normal inspection, full ROM, normal capillary refill, pedal edema (brawny edema with venous stasis ulcer left lower extremity - 6 x 4 cm with serosanginous drainage). Absent: tenderness, joint swelling, calf te nderness Back exam: Present: normal inspection Neurological exam: Present: alert, oriented X3, CN II-XII intact Psychiatric exam: Present: normal affect, normal mood Skin exam: Present: warm, dry, intact, normal color. Absent: rash Course Vital Signs 07/23/20 07/23/20 16:10 19:45 Temperature 98.0 F 98.4 F Pulse Rate 96 78 Respiratory 16 18 Rate Blood Pressure 191/106 160/92 O2 Sat by Pulse 96 99 Oximetry Medical Decision Making - Medical Decision Making Upon arrival the patient is placed in room 33. A thorough history and physical exam is performed. IV access is established. The patient is given 1 mg of Dilaudid for pain control. Antibiotics were initiated. Lab studies were performed. Patient did have an x-ray of his left tib-fib region performed as well as a Doppler ultrasound. The radiologist does call me and states that the left leg is positive for DVT. I spoke with him about the patient's previous history of DVT. He states that the DVT is most likely chronic. As the patient is reporting to increased swelling and pain I did heparinize him. He does not have any contraindications to heparin. I did recommend hospital admission for wound care and antibiotics. Discussed the case with Dr. Rico who accepted admission. Patient was then transferred to floor in stable condition - Lab Data Result diagrams: 07/28/20 05:31 07/28/20 05:31 Lab Results 07/23/20 07/23/20 07/23/20 Range/Units 17:22 17:22 17:22 WBC 11.6 H (3.8-10.6) k/uL RBC 4.99 (4.30-5.90) m/uL Hgb 15.4 (13.0-17.5) gm/dL Hct 47.5 (39.0-53.0) % MCV 95.4 (80.0-100.0) fL MCH 30.9 (25.0-35.0) pg MCHC 32.4 (31.0-37.0) g/dL RDW 13.6 (11.5-15.5) % Plt Count 344 (150-450) k/uL Neutrophils % 76 % Lymphocytes % 12 % Monocytes % 8 % Eosinophils % 1 % Basophils % 1 % Neutrophils # 8.8 H (1.3-7.7) k/uL Lymphocytes # 1.4 (1.0-4.8) k/uL Monocytes # 0.9 (0-1.0) k/uL Eosinophils # 0.2 (0-0.7) k/uL Basophils # 0.1 (0-0.2) k/uL APTT (22.0-30.0) sec Sodium 136 L (137-145) mmol/L Potassium 4.3 (3.5-5.1) mmol/L Chloride 106 (98-107) mmol/L Carbon Dioxide 25 (22-30) mmol/L Anion Gap 5 mmol/L BUN 14 (9-20) mg/dL Creatinine 0.90 (0.66-1.25) mg/dL Est GFR (CKD-EPI)AfAm >90 (>60 ml/min/1.73 sqM) Est GFR (CKD-EPI)NonAf >90 (>60 ml/min/1.73 sqM) Glucose 97 (74-99) mg/dL Plasma Lactic Acid Quan 1.1 (0.7-2.0) mmol/L Calcium 8.8 (8.4-10.2) mg/dL Total Bilirubin 0.6 (0.2-1.3) mg/dL AST 32 (17-59) U/L ALT 29 (4-49) U/L Alkaline Phosphatase 103 (38-126) U/L C-Reactive Protein 24.7 H (<10.0) mg/L Total Protein 7.0 (6.3-8.2) g/dL Albumin 3.7 (3.5-5.0) g/dL 07/24/20 Range/Units 00:46 WBC (3.8-10.6) k/uL RBC (4.30-5.90) m/uL Hgb (13.0-17.5) gm/dL Hct (39.0-53.0) % MCV (80.0-100.0) fL MCH (25.0-35.0) pg MCHC (31.0-37.0) g/dL RDW (11.5-15.5) % Plt Count (150-450) k/uL Neutrophils % % Lymphocytes % % Monocytes % % Eosinophils % % Basophils % % Neutrophils # (1.3-7.7) k/uL Lymphocytes # (1.0-4.8) k/uL Monocytes # (0-1.0) k/uL Eosinophils # (0-0.7) k/uL Basophils # (0-0.2) k/uL APTT 59.6 H (22.0-30.0) sec Sodium (137-145) mmol/L Potassium (3.5-5.1) mmol/L Chloride (98-107) mmol/L Carbon Dioxide (22-30) mmol/L Anion Gap mmol/L BUN (9-20) mg/dL Creatinine (0.66-1.25) mg/dL Est GFR (CKD-EPI)AfAm (>60 ml/min/1.73 sqM) Est GFR (CKD-EPI)NonAf (>60 ml/min/1.73 sqM) Glucose (74-99) mg/dL Plasma Lactic Acid Quan (0.7-2.0) mmol/L Calcium (8.4-10.2) mg/dL Total Bilirubin (0.2-1.3) mg/dL AST (17-59) U/L ALT (4-49) U/L Alkaline Phosphatase (38-126) U/L C-Reactive Protein (<10.0) mg/L Total Protein (6.3-8.2) g/dL Albumin (3.5-5.0) g/dL Disposition Clinical Impression: Chronic deep vein thrombosis (DVT) of left lower extremity, Venous stasis ulcer of left lower leg with edema of left lower leg Disposition: ADMITTED IP TO THIS [facility] Condition: Stable Is patient prescribed a controlled substance at d/c from ED?: No Decision to Admit Reason: Admit from EC Decision Date: 07/23/20 Decision Time: 19:01
[2020-07-23] MEDS: HYDROmorphone 0.5 MG/0.5 ML SYRINGE IVP PRN (20:47)
[2020-07-23] MEDS ORDERED: CEPHALEXIN 500 MG CAP PO SCH (22:45)
[2020-07-23] MEDS ORDERED: traMADol 50 MG TAB PO PRN (22:49)
[2020-07-23] MEDS: traZODone HCL 100 MG TAB PO SCH (22:54)
[2020-07-24] MEDS ORDERED: NICOTINE 21MG/24HR PATCH TRANSDERM STA (00:13)
[2020-07-24] MEDS: VANCOMYCIN 2,250 MG in SODIUM CHLORIDE 0.9% 500 ML 500 ML IVPB SCH ×3 (02:42→17:46)
[2020-07-24] MEDS: HYDROmorphone 0.5 MG/0.5 ML SYRINGE IVP PRN ×3 (03:47→21:54)
[2020-07-24] MEDS: HEPARIN SOD,PORK IN 0.45% NACL 25,000 UNIT in 0.45% NACL 1 250ML.BAG IV SCH ×2 (05:39→17:45)
[2020-07-24] MEDS: LEVOTHYROXINE 25 MCG TAB PO SCH (05:40)
[2020-07-24] MEDS: POTASSIUM CHLORIDE ER 10 MEQ TAB.ER.PRT PO SCH (08:07)
[2020-07-24] MEDS: FUROSEMIDE 20 MG TAB PO SCH (08:07)
[2020-07-24] MEDS: ASPIRIN 81 MG PO SCH (08:07)
[2020-07-24] MEDS: VENLAFAXINE HCL ER 150 MG CAP PO SCH (08:07)
[2020-07-24] MEDS: amLODIPine 5 MG TAB PO SCH (08:07)
--- NOTE | 2020-07-24 09:54 | P.GSCN ---
History of Present Illness Consult date: 07/24/20 Reason for Consult: Left lower extremity chronic venous insufficiency with reopened wound Requesting physician: Tressa Barnes History of present illness: This is a 45-year-old morbidly obese gentleman who follows on an outpatient basis with Dr. Rico. He has a previous medical history of chronic left lower extremity DVT not on anticoagulation, chronic venous insufficiency with venous stasis ulcer on the lateral aspect of his left lower extremity treated off and on for several years in the wound care center, hypertension, chronic tobacco dependence, and previous pulmonary embolism. Apparently the wound on the left lower extremity has opened up and become increasingly painful with increased drainage per the patient. He had an appointment today at the wound care center at [facility] with Dr. Guillen, however the appointment was canceled. The patient was concerned and stated he had received IV antibiotics in the past with his wounds so he decided to present to [facility] emergency room last night for evaluation and treatment. X-ray was completed of the left lower extremity demonstrating no evidence of osteomyelitis. Lower extremity Dopplers were completed demonstrating chronic DVT in the left popliteal vein. WBC 11.6, hemoglobin 15.4, creatinine 0.9, lactic acid 1.1, C-reactive protein 24.7. The patient was initiated on IV heparin due to the DVT as well as vancomycin IV and was admitted for further evaluation and treatment with consultation placed to Dr. Pringle for wound care management. Review of Systems Review of systems was completed and was negative except as noted in the HPI - Constitutional Reports chronic pain - Musculoskeletal left: as per HPI - Integumentary Integumentary Comment(s): Increased warmth to left lower extremity Reports color changes, Reports foot/leg ulcers, Reports wounds Past Medical History Past Medical History: Chest Pain / Angina, Deep Vein Thrombosis (DVT), GI Bleed, Hypertension, Osteoarthritis (OA), Pulmonary Embolus (PE), Skin Disorder, Thyroid Disorder, Vascular Disorder Additional Past Medical History / Comment(s): psoriasis, enlarged heart, oswood- schlatter disease; chronic venous insufficiency with left lower extremity venous stasis ulcer; chronic DVT to the left popliteal vein History of Any Multi-Drug Resistant Organisms: None Reported Past Surgical History: Joint Replacement, Orthopedic Surgery Additional Past Surgical History / Comment(s): Left knee surgery for myles- schlatter disease. Right knee scope, helene knee replacement Past Anesthesia/Blood Transfusion Reactions: No Reported Reaction Past Psychological History: Anxiety, Depression Smoking Status: Current every day smoker Past Alcohol Use History: Occasional Past Drug Use History: Marijuana - Past Family History Mother Family Medical History: Asthma, Blood Disorder, CVA/TIA, Diabetes Mellitus, GERD/Reflux, Hypertension, Memory Impairment, Osteoarthritis (OA), Renal Disease Additional Family Medical History / Comment(s): brain aneurysm Medications and Allergies Home Medications Medication Instructions Recorded Confirmed Type Venlafaxine HCl ER [Effexor XR] 150 mg PO DAILY 07/03/18 07/23/20 History amLODIPine [Norvasc] 5 mg PO DAILY 07/03/18 07/23/20 History Aspirin [Adult Low Dose Aspirin EC] 81 mg PO DAILY 05/31/19 07/23/20 History Furosemide [Lasix] 20 mg PO DAILY 05/31/19 07/23/20 History Levothyroxine Sodium 25 mcg PO DAILY 05/31/19 07/23/20 History Potassium Chloride 10 meq PO DAILY 05/31/19 07/23/20 History Ibuprofen [Motrin] 600 mg PO Q12H PRN 01/30/20 07/23/20 History traMADol HCL 50 mg PO TID PRN 01/30/20 07/23/20 History traZODone HCL [Desyrel] 100 mg PO HS 01/30/20 07/23/20 History Cephalexin [Keflex] 500 mg PO Q6H 07/23/20 07/23/20 History SILVER sulfADIAZINE Cream 1 applic TOPICAL DAILY 07/23/20 07/23/20 History [Silvadene 1% Cream] Allergies Allergy/AdvReac Type Severity Reaction Status Date / Time No Known Allergies Allergy Verified 07/23/20 17:56 Surgical - Exam Vital Signs Temp Pulse Resp BP Pulse Ox 98.0 F 96 16 191/106 96 07/23/20 16:10 07/23/20 16:10 07/23/20 16:10 07/23/20 16:10 07/23/20 16:10 - General well developed, well nourished, no distress, moderate pain, obese - Eyes PERRL, normal ocular movement - ENT no hearing loss - Neck no masses, no bruits, trachea midline - Respiratory Lungs sounds diminished bilaterally. Respirations even, nonlabored. Currently on room air with oxygen saturation 96%. No clubbing or cyanosis present. No chest wall deformities. - Cardiovascular S1, S2 present. Regular rate and rhythm. Palpable peripheral pulses bilaterally. Bilateral lower extremity edema present, left greater than right. - Abdomen Abdomen: soft, non tender, bowel sounds - Genitourinary Deferred - Rectum Deferred - Integumentary Lateral aspect of left lower extremity with chronic venous stasis ulcer currently measuring 2 cm medial to lateral, 4 cm cranial to caudal, does appear wet with minimal serous fluid, however patient states drainage was much more si gnificant no rash, no growths - Neurologic normal coordination, normal sensation - Musculoskeletal normal posture - Psychiatric oriented to time, oriented to person, oriented to place, speech is normal, memory intact Results - Labs 07/23/20 17:22 07/23/20 17:22 Abnormal Lab Results - Last 24 Hours (Table) 07/23/20 07/23/20 07/24/20 Range/Units 17:22 17:22 00:46 WBC 11.6 H (3.8-10.6) k/uL Neutrophils # 8.8 H (1.3-7.7) k/uL APTT 59.6 H (22.0-30.0) sec Sodium 136 L (137-145) mmol/L C-Reactive Protein 24.7 H (<10.0) mg/L Diabetes panel 07/23/20 Range/Units 17:22 Sodium 136 L (137-145) mmol/L Potassium 4.3 (3.5-5.1) mmol/L Chloride 106 (98-107) mmol/L Carbon Dioxide 25 (22-30) mmol/L BUN 14 (9-20) mg/dL Creatinine 0.90 (0.66-1.25) mg/dL Glucose 97 (74-99) mg/dL Calcium 8.8 (8.4-10.2) mg/dL AST 32 (17-59) U/L ALT 29 (4-49) U/L Alkaline Phosphatase 103 (38-126) U/L Total Protein 7.0 (6.3-8.2) g/dL Albumin 3.7 (3.5-5.0) g/dL Calcium panel 07/23/20 Range/Units 17:22 Calcium 8.8 (8.4-10.2) mg/dL Albumin 3.7 (3.5-5.0) g/dL Pituitary panel 07/23/20 Range/Units 17:22 Sodium 136 L (137-145) mmol/L Potassium 4.3 (3.5-5.1) mmol/L Chloride 106 (98-107) mmol/L Carbon Dioxide 25 (22-30) mmol/L BUN 14 (9-20) mg/dL Creatinine 0.90 (0.66-1.25) mg/dL Glucose 97 (74-99) mg/dL Calcium 8.8 (8.4-10.2) mg/dL Adrenal panel 07/23/20 Range/Units 17:22 Sodium 136 L (137-145) mmol/L Potassium 4.3 (3.5-5.1) mmol/L Chloride 106 (98-107) mmol/L Carbon Dioxide 25 (22-30) mmol/L BUN 14 (9-20) mg/dL Creatinine 0.90 (0.66-1.25) mg/dL Glucose 97 (74-99) mg/dL Calcium 8.8 (8.4-10.2) mg/dL Total Bilirubin 0.6 (0.2-1.3) mg/dL AST 32 (17-59) U/L ALT 29 (4-49) U/L Alkaline Phosphatase 103 (38-126) U/L Total Protein 7.0 (6.3-8.2) g/dL Albumin 3.7 (3.5-5.0) g/dL Assessment and Plan Assessment: 1. Chronic venous stasis ulcer on the lateral aspect of the left lower extremity, 2 cm x 4 cm, CRP 24.7 2. Leukocytosis with WBC 11.6, remains afebrile 3. Chronic left lower extremity DVT, not on chronic anticoagulation on an outpatient basis, currently on IV heparin 4. Hypertension 5. Chronic tobacco dependence 6. Previous pulmonary embolism Plan: The patient was seen and examined in the observation unit. Chart/diagnostics were reviewed. The case was discussed with Dr. Pringle. Our recommendations at this time are for absorptive silver to be applied to the wound, wrapped with Kerlex, then gentle Kannan wraps from toes to knees, change dressing daily. Patient should have his lower extremities elevated above the level of his heart at all times except when eating or toileting. This was discussed with the patient. He was also encouraged to quit smoking. Antibiotics, IV heparin per primary care service. When patient is discharged he may follow weekly in the wound service for further treatment. Thank you for this consult. Please call us with any further questions. Seen and examined and agree with above Time with Patient: Greater than 30
[2020-07-24 11:07] LABS: Basophils # (A) 0.1 k/uL (0-0.2); Basophils % (A) 1 %; Eosinophils # (A) 0.2 k/uL (0-0.7); Eosinophils % (A) 3 %; Hypochromasia Moderate; Lymphocytes # (A) 1.9 k/uL (1.0-4.8); Lymphocytes % (A) 22 %; MCH 31.5 pg (25.0-35.0); MCHC 31.3 g/dL (31.0-37.0); Macrocytosis Slight; Mean Platelet Volume 6.9; Monocytes % (A) 11 %; Neutrophils # (A) 5.4 k/uL (1.3-7.7); Neutrophils % (A) 61 %; Platelet Count 246 k/uL (150-450); RBC 4.77 m/uL (4.30-5.90); RDW 14.1 % (11.5-15.5); WBC 8.8 k/uL (3.8-10.6)
[2020-07-24 11:08] LABS: MCV 100.6 fL (80.0-100.0)
[2020-07-24 11:10] LABS: INR 0.9 (<1.2); Prothrombin Time 9.6 sec (9.0-12.0)
[2020-07-24 11:22] LABS: African American GFR (CKD) >90 (>60 ml/min/1.73 sqM); Anion Gap 7 mmol/L; Blood Urea Nitrogen 11 mg/dL (9-20); Calcium 8.5 mg/dL (8.4-10.2); Carbon Dioxide 19 mmol/L (22-30); Chloride 109 mmol/L (98-107); Glucose 93 mg/dL (74-99); Non-African American GFR(CKD) >90 (>60 ml/min/1.73 sqM); Sodium 135 mmol/L (137-145)
[2020-07-24 11:24] LABS: Potassium 4.9 mmol/L (3.5-5.1)
--- NOTE | 2020-07-24 17:30 | P.HPIM ---
History of Present Illness H&P Date: 07/24/20 Alexandro Juares, he is a 45-year-old male who presented to [facility] emergency room with left lower extremity swelling erythema and tenderness, patient has a known history of left lower extremity cellulitis in the pretibial area with large ulcer in the left pretibial area patient received oral antibiotic as outpatient and was followed at the wound care clinic however his condition continued to worsen and he decided to come to emergency room. Patient also has a known history of left lower extremity DVT he completed to treatment with anticoagulation and was not on any anticoagulation recently. Patient was evaluated in the emergency room his vital exam on presentation reveals a temperature of 98 pulse 96 respirations 16 blood pressure 191/106 pulse ox 96% on room air his white blood count was 11.6 hemoglobin 15.4 platelet count 344 normal kidney function with a creatinine of 0.9 normal liver function, C-reactive protein was significantly elevated at 24.7 patient underwent Doppler of the left lower extremity which revealed nonocclusive DVT of the left popliteal vein probably chronic he was started on IV heparin and IV antibiotic and was admitted to medical floor consultation for vascular surgery was initiated Past Medical History Past Medical History: Chest Pain / Angina, Deep Vein Thrombosis (DVT), GI Bleed, Hypertension, Osteoarthritis (OA), Pulmonary Embolus (PE), Skin Disorder, Thyroid Disorder, Vascular Disorder Additional Past Medical History / Comment(s): psoriasis, enlarged heart, oswood-schlatter disease; chronic venous insufficiency with left lower extremity venous stasis ulcer; chronic DVT to the left popliteal vein History of Any Multi-Drug Resistant Organisms: None Reported Past Surgical History: Joint Replacement, Orthopedic Surgery Additional Past Surgical History / Comment(s): Left knee surgery for myles- schlatter disease. Right knee scope, helene knee replacement Past Anesthesia/Blood Transfusion Reactions: No Reported Reaction Past Psychological History: Anxiety, Depression Smoking Status: Current every day smoker Past Alcohol Use History: Occasional Past Drug Use History: Marijuana - Past Family History Mother Family Medical History: Asthma, Blood Disorder, CVA/TIA, Diabetes Mellitus, GERD/Reflux, Hypertension, Memory Impairment, Osteoarthritis (OA), Renal Disease Additional Family Medical History / Comment(s): brain aneurysm Medications and Allergies Home Medications Medication Instructions Recorded Confirmed Type Venlafaxine HCl ER [Effexor XR] 150 mg PO DAILY 07/03/18 07/23/20 History amLODIPine [Norvasc] 5 mg PO DAILY 07/03/18 07/23/20 History Aspirin [Adult Low Dose Aspirin EC] 81 mg PO DAILY 05/31/19 07/23/20 History Furosemide [Lasix] 20 mg PO DAILY 05/31/19 07/23/20 History Levothyroxine Sodium 25 mcg PO DAILY 05/31/19 07/23/20 History Potassium Chloride 10 meq PO DAILY 05/31/19 07/23/20 History Ibuprofen [Motrin] 600 mg PO Q12H PRN 01/30/20 07/23/20 History traMADol HCL 50 mg PO TID PRN 01/30/20 07/23/20 History traZODone HCL [Desyrel] 100 mg PO HS 01/30/20 07/23/20 History Cephalexin [Keflex] 500 mg PO Q6H 07/23/20 07/23/20 History SILVER sulfADIAZINE Cream 1 applic TOPICAL DAILY 07/23/20 07/23/20 History [Silvadene 1% Cream] Allergies Allergy/AdvReac Type Severity Reaction Status Date / Time No Known Allergies Allergy Verified 07/23/20 17:56 Physical Exam Vitals: Vital Signs Temp Pulse Pulse Resp BP BP Pulse Ox 07/24/20 08:10 98 F 88 16 160/76 97 07/24/20 03:18 98.3 F 88 17 143/87 96 07/23/20 20:42 97.7 F 83 17 129/90 98 07/23/20 20:22 83 07/23/20 19:45 98.4 F 78 18 160/92 99 07/23/20 16:10 98.0 F 96 16 191/106 96 Intake and Output 07/23/20 07/24/20 07/24/20 22:59 06:59 14:59 Intake Total 1000 246.494 479.956 Balance 1000 246.494 479.956 Intake: Intake, IV Titration 1000 246.494 129.956 Amount Heparin Sod,Pork in 0.45% 246.494 129.956 NaCl 25,000 unit In 0.45 % NaCl 1 250ml.bag @ 14. 488 UNITS/KG/HR 23.001 mls/hr IV .[id number] [facility] Rx #:[id number] Sodium Chloride 0.9% 500 500 ml 500 ml @ 999 mls/hr IV .Q31M ONE Rx#:[id number] Vancomycin 2,250 mg In 500 Sodium Chloride 0.9% 500 ml 500 ml @ 167 mls/hr IVPB Q8H [facility] Rx#: [id number] Oral 350 Other: # Voids 1 1 Weight 158.757 kg In general patient is alert and oriented 3 HEENT head normocephalic and atraumatic Neck is supple no JVD no goiter no lymphadenopathy Chest exam reveals a few scattered rhonchi no wheezing Cardiac exam reveals regular heart sounds no murmurs Abdomen is soft nontender no organomegaly with normal bowel sounds Extremity exam reveals 2+ edema bilaterally , left lower extremity with erythema and tenderness extending from above the ankle to below the knee there is a 2 inch round superficial ulcer in the lateral side over the pretibial area Neurological examination reveals no gross focal deficit Results CBC & Chem 7: 07/24/20 10:27 07/24/20 10:27 Labs: Abnormal Lab Results - Last 24 Hours (Table) 07/23/20 07/23/20 07/24/20 Range/Units 17:22 17:22 00:46 WBC 11.6 H (3.8-10.6) k/uL MCV (80.0-100.0) fL Neutrophils # 8.8 H (1.3-7.7) k/uL APTT 59.6 H (22.0-30.0) sec Sodium 136 L (137-145) mmol/L Chloride (98-107) mmol/L Carbon Dioxide (22-30) mmol/L C-Reactive Protein 24.7 H (<10.0) mg/L 07/24/20 07/24/20 07/24/20 Range/Units 10:27 10:27 10:27 WBC (3.8-10.6) k/uL MCV 100.6 H D (80.0-100.0) fL Neutrophils # (1.3-7.7) k/uL APTT 37.0 H (22.0-30.0) sec Sodium 135 L (137-145) mmol/L Chloride 109 H (98-107) mmol/L Carbon Dioxide 19 L (22-30) mmol/L C-Reactive Protein (<10.0) mg/L Thrombosis Risk Factor Assmnt - Choose All That Apply Each Factor Represents 1 point: Age 41-60 years, Obesity (BMI >25), Swollen legs (current) Each Risk Factor Represents 3 Points: Family history of DVT/PE, History of DVT/PE Other congenital or acquired thrombophilia - If yes, enter type in comment: No Thrombosis Risk Factor Assessment Total Risk Factor Score: 9 Thrombosis Risk Factor Assessment Level: High Risk Assessment and Plan Plan: Left lower extremity cellulitis was large open ulcer Left popliteal vein DVT possibly chronic patient was started on IV heparin in the emergency room vascular surgery consultation requested Underlying history of hypertension Underlying history of peripheral neuropathy Underlying history of hypothyroidism resume Synthroid At this time no recommendation from vascular surgery to continue IV heparin Will discontinue heparin and start patient on Lovenox for DVT prophylaxis Continue with IV vancomycin pharmacy to dose For GI prophylaxis patient will be given Protonix
[2020-07-24] MEDS: traZODone HCL 100 MG TAB PO SCH (20:26)
[2020-07-25] MEDS: VANCOMYCIN 2,250 MG in SODIUM CHLORIDE 0.9% 500 ML 500 ML IVPB SCH ×2 (03:38→15:54)
[2020-07-25] MEDS: HYDROmorphone 0.5 MG/0.5 ML SYRINGE IVP PRN ×5 (03:38→22:40)
[2020-07-25] MEDS: HEPARIN SOD,PORK IN 0.45% NACL 25,000 UNIT in 0.45% NACL 1 250ML.BAG IV SCH (03:38)
[2020-07-25] MEDS: LEVOTHYROXINE 25 MCG TAB PO SCH (06:32)
[2020-07-25] MEDS: ASPIRIN 81 MG PO SCH (08:06)
[2020-07-25] MEDS: POTASSIUM CHLORIDE ER 10 MEQ TAB.ER.PRT PO SCH (08:06)
[2020-07-25] MEDS: VENLAFAXINE HCL ER 150 MG CAP PO SCH (08:06)
[2020-07-25] MEDS: amLODIPine 5 MG TAB PO SCH (08:06)
[2020-07-25] MEDS: FUROSEMIDE 20 MG TAB PO SCH (08:06)
[2020-07-25 08:59] LABS: Partial Thromboplastin Time 65.9 sec (22.0-30.0)
[2020-07-25] MEDS ORDERED: VANCOMYCIN TROUGH DUE 1 EACH MISC MISCELLANE ONE (09:00)
[2020-07-25 09:08] LABS: Basophils % (A) 1 %; Eosinophils # (A) 0.3 k/uL (0-0.7); Eosinophils % (A) 4 %; HCT 44.3 % (39.0-53.0); HGB 14.3 gm/dL (13.0-17.5); Lymphocytes % (A) 23 %; MCHC 32.3 g/dL (31.0-37.0); Monocytes # (A) 0.5 k/uL (0-1.0); Monocytes % (A) 5 %; Neutrophils # (A) 5.8 k/uL (1.3-7.7); Neutrophils % (A) 67 %; Platelet Count 306 k/uL (150-450); RBC 4.61 m/uL (4.30-5.90); RDW 13.9 % (11.5-15.5); WBC 8.6 k/uL (3.8-10.6)
[2020-07-25] MEDS ORDERED: VANCOMYCIN IV PER PHARMACY 1 EACH MISC MISCELLANE PRN (09:38)
--- NOTE | 2020-07-25 09:54 | P.PN ---
Subjective Progress Note Date: 07/25/20 Alexandro Juares, he is a 45-year-old male who presented to [facility] emergency room with left lower extremity swelling erythema and tenderness, patient has a known history of left lower extremity cellulitis in the pretibial area with large ulcer in the left pretibial area patient received oral antibiotic as outpatient and was followed at the wound care clinic however his condition continued to worsen and he decided to come to emergency room. Patient also has a known history of left lower extremity DVT he completed to treatment with anticoagulation and was not on any anticoagulation recently. Patient was evaluated in the emergency room his vital exam on presentation reveals a temperature of 98 pulse 96 respirations 16 blood pressure 191/106 pulse ox 96% on room air his white blood count was 11.6 hemoglobin 15.4 platelet count 344 normal kidney function with a creatinine of 0.9 normal liver function, C-reactive protein was significantly elevated at 24.7 patient underwent Doppler of the left lower extremity which revealed nonocclusive DVT of the left popliteal vein probably chronic he was started on IV heparin and IV antibiotic and was admitted to medical floor consultation for vascular surgery was initiated On 07/25/2020 patient was seen and examined on the medical floor he is alert and oriented 3 in no apparent distress there is no fever or chills no headache or dizziness no chest pain no shortness of breath no cough no nausea or vomiting no abdominal pain no diarrhea no blood in the stools no burning with urination no frequency or urgency and no hematuria shouldn't remains on IV vancomycin for lower extremity cellulitis with ulcer. Patient has a blood clot in the popliteal vein on the left, most likely chronic per evaluation by radiology, at this time will discontinue IV heparin, and start subcu Lovenox. Objective - Vital Signs Vital signs: Vital Signs Temp 98.0 F 07/25/20 08:00 Pulse 78 07/25/20 08:00 Resp 18 07/25/20 08:00 BP 142/89 07/25/20 08:00 Pulse Ox 98 07/25/20 08:00 Intake & Output 07/24/20 07/25/20 07/25/20 18:59 06:59 18:59 Intake Total 1100.000 750 143.985 Balance 1100.000 750 143.985 Intake: Intake, IV Titration 250.000 750 143.985 Amount Heparin Sod,Pork in 0.45% 250.000 250 143.985 NaCl 25,000 unit In 0.45 % NaCl 1 250ml.bag @ 14. 488 UNITS/KG/HR 23.001 mls/hr IV .[id number] [facility] Rx #:[id number] Vancomycin 2,250 mg In 500 Sodium Chloride 0.9% 500 ml 500 ml @ 167 mls/hr IVPB Q8H [facility] Rx#: [id number] Oral 850 Other: Voiding Method Toilet # Voids 1 1 1 - Exam In general patient is alert and oriented 3 HEENT head normocephalic and atraumatic Neck is supple no JVD no goiter no lymphadenopathy Chest exam reveals a few scattered rhonchi no wheezing Cardiac exam reveals regular heart sounds no murmurs Abdomen is soft nontender no organomegaly with normal bowel sounds Extremity exam reveals 2+ edema bilaterally , left lower extremity with erythema and tenderness extending from above the ankle to below the knee there is a 2 inch round superficial ulcer in the lateral side over the pretibial area Neurological examination reveals no gross focal deficit - Labs CBC & Chem 7: 07/25/20 08:19 07/24/20 10:27 Labs: Abnormal Lab Results - Last 24 Hours (Table) 07/24/20 07/24/20 07/24/20 Range/Units 10:27 10:27 10:27 MCV 100.6 H D (80.0-100.0) fL APTT 37.0 H (22.0-30.0) sec Sodium 135 L (137-145) mmol/L Chloride 109 H (98-107) mmol/L Carbon Dioxide 19 L (22-30) mmol/L 07/24/20 07/25/20 Range/Units 17:16 08:19 MCV (80.0-100.0) fL APTT 44.5 H 65.9 H (22.0-30.0) sec Sodium (137-145) mmol/L Chloride (98-107) mmol/L Carbon Dioxide (22-30) mmol/L Assessment and Plan Plan: 1. Left lower extremity cellulitis was large open ulcer, failed outpatient therapy with oral antibiotics 2. Left popliteal vein DVT possibly chronic patient was started on IV heparin in the emergency room vascular surgery consultation requested, DVT deemed to be chronic, IV heparin was discontinued and patient started on subcu Lovenox 3. Underlying history of hypertension 4. Underlying history of peripheral neuropathy 5. Underlying history of hypothyroidism resume Synthroid Continue with IV vancomycin pharmacy to dose For GI prophylaxis patient will be given Protonix
[2020-07-25] MEDS: ENOXAPARIN 40 MG/0.4 ML SYRINGE SQ SCH (12:22)
[2020-07-25] MEDS: traZODone HCL 100 MG TAB PO SCH (22:34)
[2020-07-26] MEDS: HYDROmorphone 0.5 MG/0.5 ML SYRINGE IVP PRN ×4 (02:08→19:23)
[2020-07-26] MEDS: VANCOMYCIN 2,250 MG in SODIUM CHLORIDE 0.9% 500 ML 500 ML IVPB SCH ×2 (04:32→17:09)
[2020-07-26] MEDS: LEVOTHYROXINE 25 MCG TAB PO SCH (05:16)
[2020-07-26 06:43] LABS: Basophils # (A) 0.1 k/uL (0-0.2); Basophils % (A) 1 %; Eosinophils # (A) 0.3 k/uL (0-0.7); Eosinophils % (A) 4 %; HCT 47.6 % (39.0-53.0); HGB 14.9 gm/dL (13.0-17.5); Lymphocytes # (A) 1.8 k/uL (1.0-4.8); Lymphocytes % (A) 26 %; MCH 30.3 pg (25.0-35.0); MCHC 31.3 g/dL (31.0-37.0); MCV 96.8 fL (80.0-100.0); Mean Platelet Volume 6.9; Monocytes # (A) 0.7 k/uL (0-1.0); Monocytes % (A) 9 %; Neutrophils # (A) 4.2 k/uL (1.3-7.7); Neutrophils % (A) 59 %; Platelet Count 355 k/uL (150-450); RBC 4.92 m/uL (4.30-5.90); RDW 13.8 % (11.5-15.5); WBC 7.1 k/uL (3.8-10.6)
[2020-07-26 06:46] LABS: Prothrombin Time 9.9 sec (9.0-12.0)
[2020-07-26 06:50] LABS: African American GFR (CKD) >90 (>60 ml/min/1.73 sqM); Non-African American GFR(CKD) >90 (>60 ml/min/1.73 sqM)
[2020-07-26] MEDS: ENOXAPARIN 40 MG/0.4 ML SYRINGE SQ SCH (07:39)
[2020-07-26] MEDS: ASPIRIN 81 MG PO SCH (07:39)
[2020-07-26] MEDS: FUROSEMIDE 20 MG TAB PO SCH (07:39)
[2020-07-26] MEDS: POTASSIUM CHLORIDE ER 10 MEQ TAB.ER.PRT PO SCH (07:39)
[2020-07-26] MEDS: VENLAFAXINE HCL ER 150 MG CAP PO SCH (07:40)
[2020-07-26] MEDS: amLODIPine 5 MG TAB PO SCH (07:40)
--- NOTE | 2020-07-26 13:38 | P.PN ---
Subjective Progress Note Date: 07/26/20 Alexandro Juares, he is a 45-year-old male who presented to [facility] emergency room with left lower extremity swelling erythema and tenderness, patient has a known history of left lower extremity cellulitis in the pretibial area with large ulcer in the left pretibial area patient received oral antibiotic as outpatient and was followed at the wound care clinic however his condition continued to worsen and he decided to come to emergency room. Patient also has a known history of left lower extremity DVT he completed to treatment with anticoagulation and was not on any anticoagulation recently. Patient was evaluated in the emergency room his vital exam on presentation reveals a temperature of 98 pulse 96 respirations 16 blood pressure 191/106 pulse ox 96% on room air his white blood count was 11.6 hemoglobin 15.4 platelet count 344 normal kidney function with a creatinine of 0.9 normal liver function, C-reactive protein was significantly elevated at 24.7 patient underwent Doppler of the left lower extremity which revealed nonocclusive DVT of the left popliteal vein probably chronic he was started on IV heparin and IV antibiotic and was admitted to medical floor consultation for vascular surgery was initiated On 07/25/2020 patient was seen and examined on the medical floor he is alert and oriented 3 in no apparent distress there is no fever or chills no headache or dizziness no chest pain no shortness of breath no cough no nausea or vomiting no abdominal pain no diarrhea no blood in the stools no burning with urination no frequency or urgency and no hematuria shouldn't remains on IV vancomycin for lower extremity cellulitis with ulcer. Patient has a blood clot in the popliteal vein on the left, most likely chronic per evaluation by radiology, at this time will discontinue IV heparin, and start subcu Lovenox. On 07/26/2020 patient was seen and examined on the medical floor he is alert and oriented 3 in no distress there is no fever or chills no headache or dizziness no chest pain no shortness of breath no cough no nausea or vomiting no abdominal pain no diarrhea no burning with urination no frequency or urgency and no hematuria. Leg was unwrapped and examined today there is improvement in the swelling and erythema in the left lower extremity Objective - Vital Signs Vital signs: Vital Signs Temp 97.7 F 07/26/20 07:50 Pulse 82 07/26/20 07:50 Resp 14 07/26/20 07:50 BP 141/90 07/26/20 07:50 Pulse Ox 98 07/26/20 07:50 Intake & Output 07/25/20 07/26/20 07/26/20 18:59 06:59 18:59 Intake Total 2475.140 500 600 Balance 2475.140 500 600 Intake: Intake, IV Titration 725.140 500 Amount Heparin Sod,Pork in 0.45% 225.140 NaCl 25,000 unit In 0.45 % NaCl 1 250ml.bag @ 14. 488 UNITS/KG/HR 23.001 mls/hr IV .[id number] [facility] Rx #:[id number] Vancomycin 2,250 mg In 500 500 Sodium Chloride 0.9% 500 ml 500 ml @ 167 mls/hr IVPB Q12H [facility] Rx#: [id number] Oral 1750 Other 600 Other: Voiding Method Toilet Toilet Toilet # Voids 2 2 2 - Exam In general patient is alert and oriented 3 HEENT head normocephalic and atraumatic Neck is supple no JVD no goiter no lymphadenopathy Chest exam reveals a few scattered rhonchi no wheezing Cardiac exam reveals regular heart sounds no murmurs Abdomen is soft nontender no organomegaly with normal bowel sounds Extremity exam reveals 2+ edema bilaterally , left lower extremity with erythema and tenderness extending from above the ankle to below the knee there is a 2 inch round superficial ulcer in the lateral side over the pretibial area Neurological examination reveals no gross focal deficit - Labs CBC & Chem 7: 07/26/20 05:18 07/26/20 05:18 Assessment and Plan Plan: 1. Left lower extremity cellulitis was large open ulcer, failed outpatient therapy with oral antibiotics 2. Left popliteal vein DVT possibly chronic patient was started on IV heparin in the emergency room vascular surgery consultation requested, DVT deemed to be chronic, IV heparin was discontinued and patient started on subcu Lovenox 3. Underlying history of hypertension 4. Underlying history of peripheral neuropathy 5. Underlying history of hypothyroidism resume Synthroid Continue with IV vancomycin pharmacy to dose IV heparin was discontinued patient was started on subcu Lovenox for DVT pr ophylaxis For GI prophylaxis patient will be given Protonix
[2020-07-26] MEDS: traZODone HCL 100 MG TAB PO SCH (20:46)
[2020-07-27] MEDS: VANCOMYCIN 2,250 MG in SODIUM CHLORIDE 0.9% 500 ML 500 ML IVPB SCH ×2 (04:03→16:59)
[2020-07-27] MEDS: LEVOTHYROXINE 25 MCG TAB PO SCH (06:12)
[2020-07-27] MEDS: POTASSIUM CHLORIDE ER 10 MEQ TAB.ER.PRT PO SCH (08:48)
[2020-07-27] MEDS: ASPIRIN 81 MG PO SCH (08:48)
[2020-07-27] MEDS: amLODIPine 5 MG TAB PO SCH (08:48)
[2020-07-27] MEDS: ENOXAPARIN 40 MG/0.4 ML SYRINGE SQ SCH (08:48)
[2020-07-27] MEDS: VENLAFAXINE HCL ER 150 MG CAP PO SCH (08:48)
[2020-07-27] MEDS: FUROSEMIDE 20 MG TAB PO SCH (08:51)
[2020-07-27] MEDS: HYDROmorphone 0.5 MG/0.5 ML SYRINGE IVP PRN ×3 (08:54→20:15)
--- NOTE | 2020-07-27 10:31 | P.PN ---
Subjective Progress Note Date: 07/27/20 Alexandro Juares, he is a 45-year-old male who presented to [facility] emergency room with left lower extremity swelling erythema and tenderness, patient has a known history of left lower extremity cellulitis in the pretibial area with large ulcer in the left pretibial area patient received oral antibiotic as outpatient and was followed at the wound care clinic however his condition continued to worsen and he decided to come to emergency room. Patient also has a known history of left lower extremity DVT he completed to treatment with anticoagulation and was not on any anticoagulation recently. Patient was evaluated in the emergency room his vital exam on presentation reveals a temperature of 98 pulse 96 respirations 16 blood pressure 191/106 pulse ox 96% on room air his white blood count was 11.6 hemoglobin 15.4 platelet count 344 normal kidney function with a creatinine of 0.9 normal liver function, C-reactive protein was significantly elevated at 24.7 patient underwent Doppler of the left lower extremity which revealed nonocclusive DVT of the left popliteal vein probably chronic he was started on IV heparin and IV antibiotic and was admitted to medical floor consultation for vascular surgery was initiated On 07/25/2020 patient was seen and examined on the medical floor he is alert and oriented 3 in no apparent distress there is no fever or chills no headache or dizziness no chest pain no shortness of breath no cough no nausea or vomiting no abdominal pain no diarrhea no blood in the stools no burning with urination no frequency or urgency and no hematuria shouldn't remains on IV vancomycin for lower extremity cellulitis with ulcer. Patient has a blood clot in the popliteal vein on the left, most likely chronic per evaluation by radiology, at this time will discontinue IV heparin, and start subcu Lovenox. On 07/26/2020 patient was seen and examined on the medical floor he is alert and oriented 3 in no distress there is no fever or chills no headache or dizziness no chest pain no shortness of breath no cough no nausea or vomiting no abdominal pain no diarrhea no burning with urination no frequency or urgency and no hematuria. Leg was unwrapped and examined today there is improvement in the swelling and erythema in the left lower extremity On 07/27/2020 patient alert and oriented 3. Patient's left leg is showing signs of improvement. Patient remains on IV vancomycin. Patient denies any chest pain or shortness of breath. Patient denies nausea vomiting or diarrhea. Patient denies any urinary burning or frequency. Nicotine patch ordered and patient educated on the importance of smoking cessation in order to heal wounds.. Objective - Vital Signs Vital signs: Vital Signs Temp 97.7 F 07/27/20 04:59 Pulse 94 07/27/20 08:00 Resp 16 07/27/20 08:00 BP 158/77 07/27/20 04:59 Pulse Ox 96 07/27/20 04:59 Intake & Output 07/26/20 07/27/20 07/27/20 18:59 06:59 18:59 Intake Total 600 1620 Balance 600 1620 Intake: Oral 1620 Other 600 Other: Voiding Method Toilet Toilet Toilet # Voids 2 2 - Exam In general patient is alert and oriented 3 HEENT head normocephalic and atraumatic Neck is supple no JVD no goiter no lymphadenopathy Chest exam reveals a few scattered rhonchi no wheezing Cardiac exam reveals regular heart sounds no murmurs Abdomen is soft nontender no organomegaly with normal bowel sounds Extremity exam reveals 2+ edema bilaterally , left lower extremity with erythema and tenderness extending from above the ankle to below the knee there is a 2 inch round superficial ulcer in the lateral side over the pretibial area Neurological examination reveals no gross focal deficit - Labs CBC & Chem 7: 07/26/20 05:18 07/26/20 05:18 Assessment and Plan Assessment: 1. Left lower extremity cellulitis was large open ulcer, failed outpatient therapy with oral antibiotics 2. Left popliteal vein DVT possibly chronic patient was started on IV heparin in the emergency room vascular surgery consultation requested, DVT deemed to be chronic, IV heparin was discontinued and patient started on subcu Lovenox 3. Underlying history of hypertension 4. Underlying history of peripheral neuropathy 5. Underlying history of hypothyroidism resume Synthroid 6. Nicotine dependence. Nicotine patch ordered. Patient educated greater than 3 minutes on smoking cessation. Continue with IV vancomycin pharmacy to dose IV heparin was discontinued patient was started on subcu Lovenox for DVT prophylaxis For GI prophylaxis patient will be given Pepcid hemoglobin A1c ordered I performed an examination of the patient and discussed their management with the Nurse Practitioner. I have reviewed the Nurse Practitioner's notes and agree with the documented findings and plan of care
[2020-07-27] MEDS: NICOTINE 14MG/24HR PATCH TRANSDERM SCH (11:48)
[2020-07-27 18:56] LABS: Hemoglobin A1C 5.4 % (4.0-6.0)
[2020-07-27] MEDS: traZODone HCL 100 MG TAB PO SCH (21:59)
[2020-07-27] MEDS: diphenhydrAMINE 25 MG CAP PO PRN (22:39)
[2020-07-28 05:47] LABS: Basophils # (A) 0.1 k/uL (0-0.2); Basophils % (A) 2 %; Eosinophils # (A) 0.3 k/uL (0-0.7); Eosinophils % (A) 4 %; HCT 49.9 % (39.0-53.0); HGB 15.8 gm/dL (13.0-17.5); Lymphocytes # (A) 1.5 k/uL (1.0-4.8); Lymphocytes % (A) 20 %; MCH 30.3 pg (25.0-35.0); MCHC 31.7 g/dL (31.0-37.0); MCV 95.8 fL (80.0-100.0); Monocytes # (A) 0.8 k/uL (0-1.0); Monocytes % (A) 10 %; Neutrophils # (A) 4.6 k/uL (1.3-7.7); Neutrophils % (A) 61 %; Platelet Count 309 k/uL (150-450); RBC 5.21 m/uL (4.30-5.90); RDW 13.3 % (11.5-15.5); WBC 7.5 k/uL (3.8-10.6)
[2020-07-28] MEDS: LEVOTHYROXINE 25 MCG TAB PO SCH (06:02)
[2020-07-28] MEDS ORDERED: FAMOTIDINE 20 MG TAB PO SCH (09:00)
[2020-07-28] MEDS: HYDROmorphone 0.5 MG/0.5 ML SYRINGE IVP PRN (10:48)
[2020-07-28] MEDS: amLODIPine 5 MG TAB PO SCH (10:49)
[2020-07-28] MEDS: POTASSIUM CHLORIDE ER 10 MEQ TAB.ER.PRT PO SCH (10:49)
[2020-07-28] MEDS: ASPIRIN 81 MG PO SCH (10:49)
[2020-07-28] MEDS: FUROSEMIDE 20 MG TAB PO SCH (10:49)
[2020-07-28] MEDS: ENOXAPARIN 40 MG/0.4 ML SYRINGE SQ SCH (10:50)
[2020-07-28] MEDS: NICOTINE 14MG/24HR PATCH TRANSDERM SCH (10:50)
[2020-07-28] MEDS: VENLAFAXINE HCL ER 150 MG CAP PO SCH (10:50)
[2020-07-28] MEDS: diphenhydrAMINE 25 MG CAP PO PRN (10:52)
[2020-07-28 11:57] VITALS: RESP 17; TEMP 97.6
[2020-07-28 12:22] VITALS: BP 150/96; PULSE 78
[2020-07-28] MEDS ORDERED: hydrALAZINE HCL 20 MG/ML 1 ML VIAL IVP STA (13:15)
[2020-07-28 14:19] LABS: African American GFR (CKD) 104.1 (60.0-200.0); Albumin 3.9 g/dL (3.80-4.90); Albumin/Globulin Ratio 1.5 (1.60-3.17); Anion Gap 6.9 mmol/L (4.00-12.00); Calcium 8.9 mg/dL (8.7-10.3); Carbon Dioxide 26.1 mmol/L (21.6-31.8); Globulin 2.6 g/dL (1.6-3.3); Non-African American GFR(CKD) 89.9 (60.0-200.0); Potassium 4.8 mmol/L (3.5-5.5); Total Bilirubin 0.3 mg/dL (0.3-1.2); Total Protein 6.5 g/dL (6.2-8.2)
[2020-07-28] MEDS ORDERED: VANCOMYCIN TROUGH DUE 1 EACH MISC MISCELLANE ONE (15:00)
--- NOTE | 2020-07-28 15:31 | CDI ---
Fat layer exposed Documentation Clarification Form Date: 07/28/2020 From: Antonella Santana RN, CCDS Admit Date: 07/24/2020 10:17:00 AM Patient Name: Alexandro Juares Visit Number: [id number] Discharge Date: ATTENTION: The Clinical Documentation Specialists (CDI) and [facility] Coding Staff appreciate your assistance in clarifying documentation. Please respond to the clarification below the line at the bottom and electronically sign. The CDI & [facility] Coding staff will review the response and follow-up if needed. Please note: Queries are made part of the Legal Health Record. If you have any questions, please contact the author of this message via ITS. Dr. Josh Pringle Chronic venous stasis ulcer on the lateral aspect of the left lower extremity, 2 cm x 4 cm documented in the ED, H/P and your consult on 07/24. Please provide further for the severity of the chronic venous stasis ulcer. Patient history/risk factors: Hypertension, Chronic tobacco dependence, Chronic left lower extremity DVT Clinical Indicators: 45-year-old male present on 07/24 with complaints of swelling, pain and ulceration to the left lower extremity. He is having pustular and serogangineous drainage. 07/23 Labs: WBC 11.6 07/24 H/P Wound assessment: Left lower extremity with erythema and tenderness extending from above the ankle to below knee . There is a 2 inch round superficial ulcer in the lateral side over the pretibial area 07/24 Vascular surgery: chronic venous stasis ulcer measuring 2cm medial to lateral, 4 cm cranial to causal, does appear wet with minimal serous fluid. Treatment: Absorptive Silvadene Cream to be applied to the wound wrapped with Kerlex, then gentle petra wrap from toes to knees, change dressing daily Elevate lower extremity above the level of his heart at all times except eating or toileting. Vancomycin 2,250 mg iv q8, 07/24 change to q12 07/25 Unasyn 3 mg ivpb x1 In your professional opinion, can the severity of the wound be further specified as one of the following? Severity: Limited to breakdown of skin With fat layer exposed With necrosis of muscle Other, Please specify Unable to determine (Last Revision: July 2017) MTDD
--- NOTE | 2020-07-28 17:47 | P.DS ---
Providers Date of admission: 07/24/20 10:17 Expected date of discharge: 07/28/20 Attending physician: Maria Elena Rico Consults: 07/23/20 19:05 Consult Physician Urgent Consulting Provider: Josh Pringle Consult Reason/Comments: lle acute vs chronic dvt, acute lle cellulitis, chronic venous stasis ulcer Do you want consulting provider notified?: Yes Primary care physician: Maria Elena [facility] Course: Diagnosis on discharge: 1. Left lower extremity cellulitis was large open ulcer, failed outpatient therapy with oral antibiotics 2. Left popliteal vein DVT possibly chronic patient was started on IV heparin in the emergency room vascular surgery consultation requested, DVT deemed to be chronic, IV heparin was discontinued and patient started on subcu Lovenox 3. Underlying history of hypertension 4. Underlying history of peripheral neuropathy 5. Underlying history of hypothyroidism resume Synthroid 6. Nicotine dependence. Nicotine patch ordered. Patient educated greater than 3 minutes on smoking cessation. Hospital course: Alexandro Juares, he is a 45-year-old male who presented to [facility] emergency room with left lower extremity swelling erythema and tenderness, patient has a known history of left lower extremity cellulitis in th e pretibial area with large ulcer in the left pretibial area patient received oral antibiotic as outpatient and was followed at the wound care clinic however his condition continued to worsen and he decided to come to emergency room. Patient also has a known history of left lower extremity DVT he completed to treatment with anticoagulation and was not on any anticoagulation recently. Patient was evaluated in the emergency room his vital exam on presentation reveals a temperature of 98 pulse 96 respirations 16 blood pressure 191/106 pulse ox 96% on room air his white blood count was 11.6 hemoglobin 15.4 platelet count 344 normal kidney function with a creatinine of 0.9 normal liver function, C-reactive protein was significantly elevated at 24.7 patient underwent Doppler of the left lower extremity which revealed nonocclusive DVT of the left popliteal vein probably chronic he was started on IV heparin and IV antibiotic and was admitted to medical floor consultation for vascular surgery was initiated On 07/25/2020 patient was seen and examined on the medical floor he is alert and oriented 3 in no apparent distress there is no fever or chills no headache or dizziness no chest pain no shortness of breath no cough no nausea or vomiting no abdominal pain no diarrhea no blood in the stools no burning with urination no frequency or urgency and no hematuria shouldn't remains on IV vancomycin for lower extremity cellulitis with ulcer. Patient has a blood clot in the popliteal vein on the left, most likely chronic per evaluation by radiology, at this time will discontinue IV heparin, and start subcu Lovenox. On 07/26/2020 patient was seen and examined on the medical floor he is alert and oriented 3 in no distress there is no fever or chills no headache or dizziness no chest pain no shortness of breath no cough no nausea or vomiting no abdominal pain no diarrhea no burning with urination no frequency or urgency and no hematuria. Leg was unwrapped and examined today there is improvement in the swelling and erythema in the left lower extremity On 07/27/2020 patient alert and oriented 3. Patient's left leg is showing signs of improvement. Patient remains on IV vancomycin. Patient denies any chest pain or shortness of breath. Patient denies nausea vomiting or diarrhea. Patient denies any urinary burning or frequency. Nicotine patch ordered and patient educated on the importance of smoking cessation in order to heal wounds.. On 07/28/2020 patient was seen and examined on the medical floor he is alert and oriented 3 in no apparent distress there is no fever or chills no headache or dizziness no chest pain no shortness of breath no cough no nausea or vomiting no abdominal pain no diarrhea and no urinary symptoms there is significant improvement in the lower extremity swelling erythema and tenderness, at this time will discontinue IV vancomycin and start oral Bactrim 1 twice daily for 10 days Will discharge patient to home and follow-up in the office in 2-3 days Patient Condition at Discharge: Stable Plan - Discharge Summary Discharge Rx Participant: No New Discharge Prescriptions: New Sulfamethox-Tmp 800-160Mg [Bactrim DS 800-160 mg] 1 tab PO Q12HR 19 Days #20 tab Nicotine 14Mg/24Hr Patch [Habitrol] 1 patch TRANSDERM DAILY patch Continue amLODIPine [Norvasc] 5 mg PO DAILY Venlafaxine HCl ER [Effexor XR] 150 mg PO DAILY Aspirin [Adult Low Dose Aspirin EC] 81 mg PO DAILY Potassium Chloride 10 meq PO DAILY Levothyroxine Sodium 25 mcg PO DAILY Furosemide [Lasix] 20 mg PO DAILY traMADol HCL 50 mg PO TID PRN PRN Reason: Pain Ibuprofen [Motrin] 600 mg PO Q12H PRN PRN Reason: Pain traZODone HCL [Desyrel] 100 mg PO HS SILVER sulfADIAZINE Cream [Silvadene 1% Cream] 1 applic TOPICAL DAILY Discontinued Cephalexin [Keflex] 500 mg PO Q6H Discharge Medication List Venlafaxine HCl ER [Effexor XR] 150 mg PO DAILY 07/03/18 [History] amLODIPine [Norvasc] 5 mg PO DAILY 07/03/18 [History] Aspirin [Adult Low Dose Aspirin EC] 81 mg PO DAILY 05/31/19 [History] Furosemide [Lasix] 20 mg PO DAILY 05/31/19 [History] Levothyroxine Sodium 25 mcg PO DAILY 05/31/19 [History] Potassium Chloride 10 meq PO DAILY 05/31/19 [History] Ibuprofen [Motrin] 600 mg PO Q12H PRN 01/30/20 [History] traMADol HCL 50 mg PO TID PRN 01/30/20 [History] traZODone HCL [Desyrel] 100 mg PO HS 01/30/20 [History] SILVER sulfADIAZINE Cream [Silvadene 1% Cream] 1 applic TOPICAL DAILY 07/23/20 [History] Nicotine 14Mg/24Hr Patch [Habitrol] 1 patch TRANSDERM DAILY patch 07/28/20 [Rx] Sulfamethox-Tmp 800-160Mg [Bactrim DS 800-160 mg] 1 tab PO Q12HR 19 Days #20 tab 07/28/20 [Rx] Follow up Appointment(s)/Referral(s): Maria Elena Rico MD [Primary Care Provider] - 08/01/20 10:30 am Patient Instructions/Handouts: Deep Vein Thrombosis (DC), Venous Insufficiency (DC) Discharge Disposition: HOME SELF-CARE
== END 2020-07-28 17:38 | disposition home or self-care (01) | DRG 300 ==
LOC: EC 16:08 → 1SOBS 19:02 → OBSVTOIN 07-24 10:17 → 6NMEDSUR 07-26 14:05
PROVIDERS: ADMIT Internal Medicine; ATTEND Internal Medicine
DX: I87.2 Venous insufficiency (chronic) (peripheral) (principal); L03.116 Cellulitis of left lower limb; Z68.41 Body mass index [BMI] 40.0-44.9, adult; I82.532 Chronic embolism and thrombosis of left popliteal vein; M19.90 Unspecified osteoarthritis, unspecified site; Z96.653 Presence of artificial knee joint, bilateral; I10 Essential (primary) hypertension; F41.9 Anxiety disorder, unspecified; F32.9 Major depressive disorder, single episode, unspecified; F17.200 Nicotine dependence, unspecified, uncomplicated; E66.01 Morbid (severe) obesity due to excess calories; E03.9 Hypothyroidism, unspecified; L40.9 Psoriasis, unspecified; Z79.899 Other long term (current) drug therapy; Z79.82 Long term (current) use of aspirin; Z79.890 Hormone replacement therapy; Z83.3 Family history of diabetes mellitus; Z82.5 Family history of asthma and other chronic lower respiratory diseases; Z82.49 Family history of ischemic heart disease and other diseases of the circulatory system; Z86.711 Personal history of pulmonary embolism; Z83.79 Family history of other diseases of the digestive system
CPT/HCPCS: 36415; 80048; 80053; 80202; 82565; 83036; 83605; 85025; 85610; 85730; 86140; 96365; 96367; 96375; 99285

== ENCOUNTER 2021-07-15 15:56 | Inpatient (IN) | payer OTHER ==
--- NOTE | 2021-07-15 19:44 | ED ---
Wound/Laceration HPI - General Chief Complaint: Wound/Laceration Stated Complaint: Lt Leg Swelling Time Seen by Provider: 07/15/21 19:22 Source: patient Mode of arrival: ambulatory Limitations: no limitations - History of Present Illness Initial Comments: 46 year-old male patient presents to the emergency department for evaluation of left lower leg wound and infection. States that he has had the wound for the last couple of years. States he is having increased redness and drainage from the wound. Denies any fever or chills. States he saw his doctor today who sent him in for admission. Denies history of diabetes. Patient denies any recent rash, cough, shortness of breath, chest pain, abdominal pain, nausea, vomiting, diarrhea, constipation, back pain, numbness, tingling, dizziness, weakness, hematuria, dysuria, urinary urgency, urinary frequency, headache, visual changes, or any other complaints. - Related Data Home Medications Medication Instructions Recorded Confirmed Venlafaxine HCl ER [Effexor XR] 150 mg PO HS 07/03/18 07/15/21 amLODIPine [Norvasc] 5 mg PO HS 07/03/18 07/15/21 Aspirin [Adult Low Dose Aspirin EC] 81 mg PO HS 05/31/19 07/15/21 Furosemide [Lasix] 20 mg PO HS 05/31/19 07/15/21 Levothyroxine Sodium 25 mcg PO HS 05/31/19 07/15/21 Potassium Chloride [Potassium 10 meq PO HS 05/31/19 07/15/21 Chloride ER] traMADol HCL 50 mg PO TID 01/30/20 07/15/21 traZODone HCL [Desyrel] 100 mg PO HS 01/30/20 07/15/21 Allergies Allergy/AdvReac Type Severity Reaction Status Date / Time No Known Allergies Allergy Verified 07/15/21 21:15 Review of Systems ROS Statement: Those systems with pertinent positive or pertinent negative responses have been documented in the HPI. ROS Other: All systems not noted in ROS Statement are negative. Past Medical History Past Medical History: Chest Pain / Angina, Deep Vein Thrombosis (DVT), GI Bleed, Hypertension, Osteoarthritis (OA), Pulmonary Embolus (PE), Skin Disorder, Thyroid Disorder Additional Past Medical History / Comment(s): psoriasis, enlarged heart, oswood- schlatter disease History of Any Multi-Drug Resistant Organisms: None Reported Past Surgical History: Joint Replacement, Orthopedic Surgery Additional Past Surgical History / Comment(s): Left knee surgery for myles-schlatter disease. Right knee scope, helene knee replacement Past Anesthesia/Blood Transfusion Reactions: No Reported Reaction Past Psychological History: Anxiety, Depression Smoking Status: Current every day smoker Past Alcohol Use History: Occasional Past Drug Use History: Marijuana - Past Family History Mother Family Medical History: Asthma, Blood Disorder, CVA/TIA, Diabetes Mellitus, GERD/Reflux, Hypertension, Memory Impairment, Osteoarthritis (OA), Renal Disease Additional Family Medical History / Comment(s): brain aneurysm General Exam Limitations: no limitations General appearance: alert, in no apparent distress, other (This is a well- developed, well-nourished adult male patient in no acute distress. Vital signs upon presentation are temperature 97.4F, pulse 84, respirations 19, blood pressure 121/79, pulse ox 97% on room air.) ENT exam: Present: normal exam, normal oropharynx, mucous membranes moist Respiratory exam: Present: normal lung sounds bilaterally. Absent: respiratory distress, wheezes, rales, rhonchi, stridor Cardiovascular Exam: Present: regular rate, normal rhythm, normal heart sounds. Absent: systolic murmur, diastolic murmur, rubs, gallop, clicks GI/Abdominal exam: Present: soft, normal bowel sounds. Absent: distended, tenderness, guarding, rebound, rigid Extremities exam: Present: full ROM, normal capillary refill, other (Left lower leg ulcer [id number], surrounding erythema circumferential. ). Absent: tenderness, pedal edema, joint swelling, calf tenderness Neurological exam: Present: alert, oriented X3, CN II-XII intact Psychiatric exam: Present: normal affect, normal mood Skin exam: Present: warm, dry, intact, normal color. Absent: rash Course Vital Signs 07/15/21 07/15/21 07/15/21 17:19 19:45 20:25 Temperature 97.4 F L Pulse Rate 84 71 72 Respiratory 19 20 20 Rate Blood Pressure 121/79 119/74 124/86 O2 Sat by Pulse 97 96 97 Oximetry 07/15/21 07/15/21 21:10 22:18 Temperature Pulse Rate 72 Respiratory 20 Rate Blood Pressure 137/73 136/84 O2 Sat by Pulse 96 Oximetry Medical Decision Making - Medical Decision Making 46-year-old male patient presented to the emergency department today for evaluation of open wound and redness to the left lower leg. Physical examination did reveal large ulcer to the anterior lower leg with surrounding erythema consistent with cellulitis. Patient was started on antibiotics and admitted to the hospital for further evaluation by infectious disease and vascular surgery. Dr. Rico is accepting. Case discussed with my attending Dr. Leblanc. - Lab Data Result diagrams: 07/15/21 20:05 07/15/21 20:05 Lab Results 07/15/21 07/15/21 07/15/21 Range/Units 20:05 20:05 20:05 WBC 9.2 (3.8-10.6) k/uL RBC 5.03 (4.30-5.90) m/uL Hgb 15.1 (13.0-17.5) gm/dL Hct 44.0 (39.0-53.0) % MCV 87.5 (80.0-100.0) fL MCH 29.9 (25.0-35.0) pg MCHC 34.2 (31.0-37.0) g/dL RDW 13.8 (11.5-15.5) % Plt Count 410 (150-450) k/uL MPV 7.0 Neutrophils % 74 % Lymphocytes % 15 % Monocytes % 7 % Eosinophils % 2 % Basophils % 1 % Neutrophils # 6.8 (1.3-7.7) k/uL Lymphocytes # 1.4 (1.0-4.8) k/uL Monocytes # 0.7 (0-1.0) k/uL Eosinophils # 0.2 (0-0.7) k/uL Basophils # 0.1 (0-0.2) k/uL Sodium 135 L (137-145) mmol/L Potassium 4.3 (3.5-5.1) mmol/L Chloride 102 (98-107) mmol/L Carbon Dioxide 26 (22-30) mmol/L Anion Gap 7 mmol/L BUN 10 (9-20) mg/dL Creatinine 0.87 (0.66-1.25) mg/dL Est GFR (CKD-EPI)AfAm >90 (>60 ml/min/1.73 sqM) Est GFR (CKD-EPI)NonAf >90 (>60 ml/min/1.73 sqM) Glucose 85 (74-99) mg/dL Plasma Lactic Acid Quan 0.9 (0.7-2.0) mmol/L Calcium 9.3 (8.4-10.2) mg/dL Total Bilirubin 0.7 (0.2-1.3) mg/dL AST 21 (17-59) U/L ALT 16 (4-49) U/L Alkaline Phosphatase 114 (38-126) U/L Total Protein 7.6 (6.3-8.2) g/dL Albumin 3.9 (3.5-5.0) g/dL Disposition Clinical Impression: Leg wound, left, Left leg cellulitis Disposition: ADMITTED IP TO THIS [facility] Condition: Serious Decision to Admit Reason: Admit from EC Decision Date: 07/15/21 Decision Time: 20:45
[2021-07-15] MEDS ORDERED: ONDANSETRON 4 MG/2 ML VIAL IVP STA (19:45)
[2021-07-15] MEDS ORDERED: SODIUM CHLORIDE 0.9% 500 ML 500 ML IV ONE (19:45)
[2021-07-15] MEDS ORDERED: cefTRIAXone IN SWFI 1,000 MG/10 ML SYRINGE IVP STA (19:45)
[2021-07-15] MEDS ORDERED: MORPHINE SULFATE 4 MG/ML SYRINGE IVP STA (19:45)
[2021-07-15] MEDS ORDERED: VANCOMYCIN IV PER PHARMACY 1 EACH MISC MISCELLANE PRN (19:45)
[2021-07-15 20:16] LABS: Basophils # (A) 0.1 k/uL (0-0.2); Basophils % (A) 1 %; Eosinophils # (A) 0.2 k/uL (0-0.7); Eosinophils % (A) 2 %; HGB 15.1 gm/dL (13.0-17.5); Lymphocytes # (A) 1.4 k/uL (1.0-4.8); Lymphocytes % (A) 15 %; MCH 29.9 pg (25.0-35.0); MCHC 34.2 g/dL (31.0-37.0); MCV 87.5 fL (80.0-100.0); Monocytes # (A) 0.7 k/uL (0-1.0); Monocytes % (A) 7 %; Neutrophils # (A) 6.8 k/uL (1.3-7.7); Neutrophils % (A) 74 %; Platelet Count 410 k/uL (150-450); RBC 5.03 m/uL (4.30-5.90); RDW 13.8 % (11.5-15.5); WBC 9.2 k/uL (3.8-10.6)
[2021-07-15 20:24] LABS: ALT 16 U/L (4-49); AST 21 U/L (17-59); African American GFR (CKD) >90 (>60 ml/min/1.73 sqM); Albumin 3.9 g/dL (3.5-5.0); Alkaline Phosphatase 114 U/L (38-126); Anion Gap 7 mmol/L; Blood Urea Nitrogen 10 mg/dL (9-20); Calcium 9.3 mg/dL (8.4-10.2); Carbon Dioxide 26 mmol/L (22-30); Chloride 102 mmol/L (98-107); Glucose 85 mg/dL (74-99); Non-African American GFR(CKD) >90 (>60 ml/min/1.73 sqM); Potassium 4.3 mmol/L (3.5-5.1); Sodium 135 mmol/L (137-145); Total Bilirubin 0.7 mg/dL (0.2-1.3); Total Protein 7.6 g/dL (6.3-8.2)
[2021-07-15] MEDS ORDERED: NALOXONE 0.4 MG/ML 1 ML VIAL IV PRN (20:41)
[2021-07-15] MEDS ORDERED: ONDANSETRON 4 MG/2 ML VIAL IVP PRN (20:41)
[2021-07-15] MEDS ORDERED: VANCOMYCIN 2,500 MG in SODIUM CHLORIDE 0.9% 500 ML 500 ML IVPB ONE (21:00)
[2021-07-15] MEDS: MORPHINE SULFATE 4 MG/ML SYRINGE IV PRN (21:15)
[2021-07-15] MEDS: ACETAMINOPHEN TAB 325 MG TAB PO PRN (21:45)
[2021-07-16] MEDS: MORPHINE SULFATE 4 MG/ML SYRINGE IV PRN ×5 (01:17→21:51)
[2021-07-16] MEDS: VANCOMYCIN 2,500 MG in SODIUM CHLORIDE 0.9% 500 ML 500 ML IVPB SCH ×2 (06:13→17:19)
--- NOTE | 2021-07-16 12:29 | P.GSCN ---
History of Present Illness Consult date: 07/16/21 Reason for Consult: Chronic lower extremity wound Requesting physician: Maria Elena Rico History of present illness: This a 46-year-old obese male with a past medical history of DVT, GI bleed, hypertension, osteoarthritis, pulmonary embolism, thyroid disorder, and venous stasis with chronic left lower extremity wounds. Patient has a history of bowel left lower extremity wound for the last 2 years duration. He had previously seen Dr. Pringle and then for the last 6 months had been seeing Dr. Guillen at his wound care clinic however has not seen him in the last 2 months. Patient states he was treating these lower extremity at home with Santyl. States he has not been wearing his compression sleeves because of the pain to the left lower extremity with his swelling. He denies any fevers or chills. Apparently yes terday he went to see his PCP Dr. Rico and he was sent to the emergency department with cellulitis and lower extremity wound. 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 He states DVT and pulmonary embolism have never been worked up. He has not seen a fixing carpenter. He denies any family history of blood disorders. He does lead a sedentary lifestyle and states he's had bilateral knee surgery and does a lot of sitting. He denies any history of diabetes mellitus, current smoker. He denies any shortness of breath, chest pain, abdominal pain, nausea, vomiting fevers or chills. States he is able to ambulate without any difficulty although he does have some discomfort in the left lower extremity. Review of Systems A 14 point review of systems was completed all pertinent positives and negatives as stated in the HPI Past Medical History Past Medical History: Chest Pain / Angina, Deep Vein Thrombosis (DVT), GI Bleed, Hypertension, Osteoarthritis (OA), Pulmonary Embolus (PE), Skin Disorder, Thyroid Disorder Additional Past Medical History / Comment(s): psoriasis, enlarged heart, oswood- schlatter disease History of Any Multi-Drug Resistant Organisms: None Reported Past Surgical History: Joint Replacement, Orthopedic Surgery Additional Past Surgical History / Comment(s): Left knee surgery for myles- schlatter disease. Right knee scope, helene knee replacement Past Anesthesia/Blood Transfusion Reactions: No Reported Reaction Past Psychological History: Anxiety, Depression Smoking Status: Current every day smoker Past Alcohol Use History: Occasional Past Drug Use History: Marijuana - Past Family History Mother Family Medical History: Asthma, Blood Disorder, CVA/TIA, Diabetes Mellitus, GERD/Reflux, Hypertension, Memory Impairment, Osteoarthritis (OA), Renal Disease Additional Family Medical History / Comment(s): brain aneurysm Medications and Allergies Home Medications Medication Instructions Recorded Confirmed Type Venlafaxine HCl ER [Effexor XR] 150 mg PO HS 07/03/18 07/15/21 History amLODIPine [Norvasc] 5 mg PO HS 07/03/18 07/15/21 History Aspirin [Adult Low Dose Aspirin EC] 81 mg PO HS 05/31/19 07/15/21 History Furosemide [Lasix] 20 mg PO HS 05/31/19 07/15/21 History Levothyroxine Sodium 25 mcg PO HS 05/31/19 07/15/21 History Potassium Chloride [Potassium 10 meq PO HS 05/31/19 07/15/21 History Chloride ER] traMADol HCL 50 mg PO TID 01/30/20 07/15/21 History traZODone HCL [Desyrel] 100 mg PO HS 01/30/20 07/15/21 History Allergies Allergy/AdvReac Type Severity Reaction Status Date / Time No Known Allergies Allergy Verified 07/15/21 21:15 Surgical - Exam Vital Signs Temp Pulse Resp BP Pulse Ox 97.4 F L 84 19 121/79 97 07/15/21 17:19 07/15/21 17:19 07/15/21 17:19 07/15/21 17:19 07/15/21 17:19 General appearance: The patient is alert, oriented, appears in no acute distress. Obese. HET: Head is normocephalic and atraumatic. . Neck: Supple without lymphadenopathy. Trachea midline. Heart: S1 S2. Regular rate and rhythm. Lungs: No crackles or wheezes are heard. Abdomen: Soft, nontender, nondistended. Extremities: Palpable bilateral femoral and dorsalis pedis pulses. Left lower extremity with edema, cellulitis and venous stasis ulcer to the lateral aspect of the left lower extremity. Neurological: No focal deficits. Strength and sensation are grossly intact. Results - Labs 07/15/21 20:05 07/15/21 20:05 Abnormal Lab Results - Last 24 Hours (Table) 07/15/21 Range/Units 20:05 Sodium 135 L (137-145) mmol/L Diabetes panel 07/15/21 Range/Units 20:05 Sodium 135 L (137-145) mmol/L Potassium 4.3 (3.5-5.1) mmol/L Chloride 102 (98-107) mmol/L Carbon Dioxide 26 (22-30) mmol/L BUN 10 (9-20) mg/dL Creatinine 0.87 (0.66-1.25) mg/dL Glucose 85 (74-99) mg/dL Calcium 9.3 (8.4-10.2) mg/dL AST 21 (17-59) U/L ALT 16 (4-49) U/L Alkaline Phosphatase 114 (38-126) U/L Total Protein 7.6 (6.3-8.2) g/dL Albumin 3.9 (3.5-5.0) g/dL Calcium panel 07/15/21 Range/Units 20:05 Calcium 9.3 (8.4-10.2) mg/dL Albumin 3.9 (3.5-5.0) g/dL Pituitary panel 07/15/21 Range/Units 20:05 Sodium 135 L (137-145) mmol/L Potassium 4.3 (3.5-5.1) mmol/L Chloride 102 (98-107) mmol/L Carbon Dioxide 26 (22-30) mmol/L BUN 10 (9-20) mg/dL Creatinine 0.87 (0.66-1.25) mg/dL Glucose 85 (74-99) mg/dL Calcium 9.3 (8.4-10.2) mg/dL Adrenal panel 07/15/21 Range/Units 20:05 Sodium 135 L (137-145) mmol/L Potassium 4.3 (3.5-5.1) mmol/L Chloride 102 (98-107) mmol/L Carbon Dioxide 26 (22-30) mmol/L BUN 10 (9-20) mg/dL Creatinine 0.87 (0.66-1.25) mg/dL Glucose 85 (74-99) mg/dL Calcium 9.3 (8.4-10.2) mg/dL Total Bilirubin 0.7 (0.2-1.3) mg/dL AST 21 (17-59) U/L ALT 16 (4-49) U/L Alkaline Phosphatase 114 (38-126) U/L Total Protein 7.6 (6.3-8.2) g/dL Albumin 3.9 (3.5-5.0) g/dL Assessment and Plan Assessment: 1. Venous insufficiency 2. Venous stasis ulcer left lower extremity 3. History of left lower extremity DVT 4. History of PE 5. History of hypertension 6. Current smoker 7. Obesity Plan: 1. Local wound care per recommendations from Dr. Guillen 2. Elevate left lower extremity 3. Apply compression to left lower extremity with Kannan wrap 4. There is no indication for any vascular surgical intervention 5. Patient may follow-up as needed outpatient with vascular surgery Thank you for this consultation, and allowing us take part in the plan of care of your patient during his hospital stay. The impression and plan of care has been dictated as directed. Dr. Tilley I performed a history and examination of this patient, discussed the same with the dictator. I agree with the dictator's note ,documented as a scribe. Any additional findings or plans will be noted.
[2021-07-16 13:15] VITALS: BMI 47.0
--- NOTE | 2021-07-16 14:56 | US ---
EXAMINATION TYPE: US venous doppler duplex LE LT DATE OF EXAM: 07/16/2021 1:23 PM COMPARISON: prior exam 07/23/2020 CLINICAL HISTORY: LLE swelling, HX of DVT in LLE. SIDE PERFORMED: left TECHNIQUE: The lower extremity deep venous system is examined utilizing real time linear array sonog iraida with graded compression, doppler sonography and color-flow sonography. VESSELS IMAGED: Common Femoral Vein Deep Femoral Vein Femoral Vein Popliteal Vein Small Saphenous Vein * Proximal Calf Veins (* superficial vessels) There is normal flow, compressibility, vascular waveforms. Left Leg: Appears negative for DVT Technically difficult study. Patient morbidly obese. Unable to augment due to tech inability to reach left leg to augment. IMPRESSION: Grayscale, color doppler, spectral doppler imaging performed of the deep veins of the lo wer extremities within the limits of the exam.
[2021-07-16] MEDS: FUROSEMIDE 20 MG TAB PO SCH (21:48)
[2021-07-16] MEDS: ASPIRIN 81 MG PO SCH (21:48)
[2021-07-16] MEDS: amLODIPine 5 MG TAB PO SCH (21:48)
[2021-07-16] MEDS: POTASSIUM CHLORIDE ER 10 MEQ TAB.ER.PRT PO SCH (21:48)
[2021-07-16] MEDS: VENLAFAXINE HCL ER 150 MG CAP PO SCH (21:53)
[2021-07-16] MEDS: traZODone HCL 100 MG TAB PO SCH (21:53)
[2021-07-17] MEDS: MORPHINE SULFATE 4 MG/ML SYRINGE IV PRN ×5 (05:40→22:56)
[2021-07-17] MEDS: LEVOTHYROXINE 25 MCG TAB PO SCH (05:41)
[2021-07-17] MEDS: VANCOMYCIN 2,500 MG in SODIUM CHLORIDE 0.9% 500 ML 500 ML IVPB SCH ×2 (05:48→18:17)
[2021-07-17 08:20] LABS: ALT 13 U/L (4-49); AST 19 U/L (17-59); African American GFR (CKD) >90 (>60 ml/min/1.73 sqM); Albumin 2.9 g/dL (3.5-5.0); Albumin/Globulin Ratio 0.9; Alkaline Phosphatase 96 U/L (38-126); Anion Gap 7 mmol/L; Blood Urea Nitrogen 11 mg/dL (9-20); Calcium 8.7 mg/dL (8.4-10.2); Carbon Dioxide 24 mmol/L (22-30); Chloride 108 mmol/L (98-107); Globulin 3.4 g/dL; Glucose 103 mg/dL (74-99); Non-African American GFR(CKD) >90 (>60 ml/min/1.73 sqM); Potassium 4.6 mmol/L (3.5-5.1); Sodium 139 mmol/L (137-145); Total Bilirubin 0.3 mg/dL (0.2-1.3); Total Protein 6.3 g/dL (6.3-8.2)
[2021-07-17] MEDS: traMADol 50 MG TAB PO SCH ×3 (08:23→22:07)
[2021-07-17 09:28] LABS: Basophils # (A) 0.04 X 10*3/uL (0.00-0.10); Basophils % (A) 0.5 %; Eosinophils # (A) 0.25 X 10*3/uL (0.04-0.35); Eosinophils % (A) 3.3 %; HCT 42.4 % (39.6-50.0); HGB 13.4 g/dL (13.0-17.0); Lymphocytes # (A) 1.76 X 10*3/uL (0.90-5.00); Lymphocytes % (A) 23.3 %; MCH 28.3 pg (27.0-32.0); MCHC 31.6 g/dL (32.0-37.0); MCV 89.6 fL (80.0-97.0); Mean Platelet Volume 9.6 fL (9.5-12.2); Monocytes # (A) 1.05 X 10*3/uL (0.20-1.00); Monocytes % (A) 13.9 %; Neutrophils # (A) 4.42 X 10*3/uL (1.80-7.70); Neutrophils % (A) 58.6 %; Platelet Count 412 X 10*3/uL (140-440); RBC 4.73 X 10*6/uL (4.40-5.60); RDW 14.1 % (11.5-14.5); WBC 7.55 X 10*3/uL (4.50-10.00)
--- NOTE | 2021-07-17 10:11 | P.HPIM ---
History of Present Illness H&P Date: 07/16/21 Alexandro Juares, is a 46-year-old male who presented to [facility] emergency room with a chief complaint of right lower extremity swelling erythema and tenderness with a large open ulcer in the lower calf area. Patient reports he had an ongoing issue with leg wounds over the past year. Patient has followed before with wound care center. Patient reports that calf wound became significantly worse over the past few days prompting him to come the ER for further evaluation. Patient denies any recent infection. Patient denies fever. Patient denies any recent trauma to leg. He was evaluated in the emergency room vital examination on presentation revealed temp 97.8, blood pressure 113/70 a, heart rate 16 pulse ox 94% on room air Laboratory data reveals lactic acid went blood cell within normal limits Patient was admitted to medical floor for further evaluation and treatment. Vascular surgery and infectious disease service is consulted. Wound and blood cultures ordered. Patient started on vancomycin Past medical history is significant for chest pain, DVT, GI bleed, hypertension, osteoporosis, pulmonary embolism, skin disorder, thyroid disorder, nicotine dependence and anxiety and depression On review of systems patient is resting comfortably in bed. Patient denies chest pain or shortness breath. Patient denies nausea vomiting or diarrhea. Patient denies any urinary burning or frequency. Leg wound dressing is clean dry and intact Review of Systems Please refer to HPI otherwise unremarkable Past Medical History Past Medical History: Chest Pain / Angina, Deep Vein Thrombosis (DVT), GI Bleed, Hypertension, Osteoarthritis (OA), Pulmonary Embolus (PE), Skin Disorder, Thyroid Disorder Additional Past Medical History / Comment(s): psoriasis, enlarged heart, oswood-schlatter disease History of Any Multi-Drug Resistant Organisms: None Reported Past Surgical History: Joint Replacement, Orthopedic Surgery Additional Past Surgical History / Comment(s): Left knee surgery for myles- schlatter disease. Right knee scope, helene knee replacement Past Anesthesia/Blood Transfusion Reactions: No Reported Reaction Past Psychological History: Anxiety, Depression Smoking Status: Current every day smoker Past Alcohol Use History: Occasional Past Drug Use History: Marijuana - Past Family History Mother Family Medical History: Asthma, Blood Disorder, CVA/TIA, Diabetes Mellitus, GERD/Reflux, Hypertension, Memory Impairment, Osteoarthritis (OA), Renal Disease Additional Family Medical History / Comment(s): brain aneurysm Medications and Allergies Home Medications Medication Instructions Recorded Confirmed Type Venlafaxine HCl ER [Effexor XR] 150 mg PO HS 07/03/18 07/15/21 History amLODIPine [Norvasc] 5 mg PO HS 07/03/18 07/15/21 History Aspirin [Adult Low Dose Aspirin EC] 81 mg PO HS 05/31/19 07/15/21 History Furosemide [Lasix] 20 mg PO HS 05/31/19 07/15/21 History Levothyroxine Sodium 25 mcg PO HS 05/31/19 07/15/21 History Potassium Chloride [Potassium 10 meq PO HS 05/31/19 07/15/21 History Chloride ER] traMADol HCL 50 mg PO TID 01/30/20 07/15/21 History traZODone HCL [Desyrel] 100 mg PO HS 01/30/20 07/15/21 History Allergies Allergy/AdvReac Type Severity Reaction Status Date / Time No Known Allergies Allergy Verified 07/15/21 21:15 Physical Exam Vitals: Vital Signs Temp Pulse Pulse Resp BP BP BP 07/16/21 07:00 98.3 F 85 16 129/83 07/15/21 22:41 98.4 F 75 18 129/81 07/15/21 22:18 72 20 136/84 07/15/21 21:10 137/73 07/15/21 20:25 72 20 124/86 07/15/21 19:45 71 20 119/74 07/15/21 17:19 97.4 F L 84 19 121/79 Pulse Ox 07/16/21 07:00 95 07/15/21 22:41 98 07/15/21 22:18 96 07/15/21 21:10 07/15/21 20:25 97 07/15/21 19:45 96 07/15/21 17:19 97 Intake and Output 07/15/21 07/16/21 07/16/21 22:59 06:59 14:59 Intake Total 1000 Balance 1000 Intake: Intake, IV Titration 1000 Amount Sodium Chloride 0.9% 500 500 ml 500 ml @ 999 mls/hr IV .Q31M ONE Rx#:[id number] Vancomycin 2,500 mg In 500 Sodium Chloride 0.9% 500 ml 500 ml @ 167 mls/hr IVPB Q12H [facility] Rx#: [id number] Other: # Voids 0 Weight 157.397 kg In general patient is alert and oriented ?-3 in no distress HEENT head normocephalic and atraumatic Neck is supple no JVD no goiter no lymphadenopathy no carotid bruit Chest examination is clear to auscultation no crackles no wheezing Cardiac exam reveals regular heart sounds S1 and S2 no gallops no murmurs Abdomen is soft nontender no organomegaly with normal bowel sounds Extremity exam reveals no edema no cyanosis or clubbing Neurological examination reveals no gross focal deficits Results CBC & Chem 7: 07/17/21 06:05 07/17/21 06:05 Labs: Abnormal Lab Results - Last 24 Hours (Table) 07/15/21 Range/Units 20:05 Sodium 135 L (137-145) mmol/L Thrombosis Risk Factor Assmnt - Choose All That Apply Any of the Below Risk Factors Present?: Yes Each Factor Represents 1 point: Obesity (BMI >25), Swollen legs (current) Each Risk Factor Represents 3 Points: History of DVT/PE Thrombosis Risk Factor Assessment Total Risk Factor Score: 5 Thrombosis Risk Factor Assessment Level: High Risk Assessment and Plan Assessment: 1. Left leg wound cellulitis. Patient started on vancomycin infectious disease and vascular surgery consulted 2. History of nicotine dependence. Patient educated greater than 3 minutes on smoking cessation. Nicotine patch ordered 3. History of essential hypertension 4. History of DVT 5. History of anxiety and depression DVT prophylaxis Lovenox. GI prophylaxis Protonix Hemoglobin A1c 5.5 Vascular surgery and infectious disease service is consulted Blood and wound cultures ordered Time with Patient: Greater than 30 (Greater than 60% of the total time spent in counseling and coordination of care)
--- NOTE | 2021-07-17 10:14 | P.PN ---
Subjective Progress Note Date: 07/17/21 Alexandro Juares, is a 46-year-old male who presented to [facility] emergency room with a chief complaint of right lower extremity swelling erythema and tenderness with a large open ulcer in the lower calf area. Patient reports he had an ongoing issue with leg wounds over the past year. Patient has followed before with wound care center. Patient reports that calf wound became significantly worse over the past few days prompting him to come the ER for further evaluation. Patient denies any recent infection. Patient denies fever. Patient denies any recent trauma to leg. He was evaluated in the emergency room vital examination on presentation revealed temp 97.8, blood pressure 113/70 a, heart rate 16 pulse ox 94% on room air Laboratory data reveals lactic acid went blood cell within normal limits Patient was admitted to medical floor for further evaluation and treatment. Vascular surgery and infectious disease service is consulted. Wound and blood cultures ordered. Patient started on vancomycin Past medical history is significant for chest pain, DVT, GI bleed, hypertension, osteoporosis, pulmonary embolism, skin disorder, thyroid disorder, nicotine dependence and anxiety and depression On review of systems patient is resting comfortably in bed. Patient denies chest pain or shortness breath. Patient denies nausea vomiting or diarrhea. Patient denies any urinary burning or frequency. Leg wound dressing is clean dry and intact On 07/17/2021 patient's alert and oriented 3. Patient was evaluated by vascular surgery no surgical intervention planned at this time. Patient remains on vancomycin. Blood and wound cultures pending. At this time patient denies c hest pain or shortness breath. Patient denies nausea vomiting or diarrhea. Patient denies any urinary burning or frequency Objective - Vital Signs Vital signs: Vital Signs Temp 97.9 F 07/17/21 07:00 Pulse 71 07/17/21 07:00 Resp 16 07/17/21 07:00 BP 146/81 07/17/21 07:00 Pulse Ox 95 07/17/21 07:00 Intake & Output 07/16/21 07/17/21 07/17/21 18:59 06:59 18:59 Intake Total 658 800 Balance 658 800 Weight 157.397 kg Intake: Oral 658 800 Other: Voiding Method Toilet # Voids 1 2 - Exam In general patient is alert and oriented ?-3 in no distress HEENT head normocephalic and atraumatic Neck is supple no JVD no goiter no lymphadenopathy no carotid bruit Chest examination is clear to auscultation no crackles no wheezing Cardiac exam reveals regular heart sounds S1 and S2 no gallops no murmurs Abdomen is soft nontender no organomegaly with normal bowel sounds Extremity exam reveals no edema no cyanosis or clubbing. Large open wound to left lower extremity medial side of calf Neurological examination reveals no gross focal deficits - Labs CBC & Chem 7: 07/17/21 06:05 07/17/21 06:05 Labs: Abnormal Lab Results - Last 24 Hours (Table) 07/17/21 07/17/21 Range/Units 06:05 06:05 MCHC 31.6 L (32.0-37.0) g/dL Monocytes # 1.05 H (0.20-1.00) X 10*3/uL Chloride 108 H (98-107) mmol/L Glucose 103 H (74-99) mg/dL Albumin 2.9 L (3.5-5.0) g/dL Microbiology - Last 24 Hours (Table) 07/16/21 07:00 Gram Stain - Preliminary Leg - Left Wound Culture - Preliminary 07/15/21 20:05 Blood Culture - Preliminary Blood No Growth after 24 hours Assessment and Plan Assessment: 1. Left leg wound cellulitis. Patient started on vancomycin infectious disease and vascular surgery consulted 2. History of nicotine dependence. Patient educated greater than 3 minutes on smoking cessation. Nicotine patch ordered 3. History of essential hypertension 4. History of DVT 5. History of anxiety and depression DVT prophylaxis Lovenox. GI prophylaxis Protonix Hemoglobin A1c 5.5 Vascular surgery and infectious disease service is consulted Blood and wound cultures ordered
--- NOTE | 2021-07-17 12:49 | P.HPADDEND ---
H&P Addendum H&P Addendum Date: 07/17/21 Alexandro Juares is a 46-year-old male admitted to [facility] with severe lower extremity cellulitis Patient needs to be admitted as inpatient: 1. He has severe cellulitis extending from the foot over the way up to the knee, he has multiple ulcers on the lower extremity including one large deep ulcer that measures 10 cm in diameter 2. Patient failed outpatient treatment with oral antibiotics 3. Patient is being evaluated by infectious disease and vascular surgery
--- NOTE | 2021-07-17 14:06 | P.PN ---
Subjective Progress Note Date: 07/17/21 Patient seen and examined up at the bedside. He has his left lower extremity wrapped with an Kannan wrap. He states it still painful. Patient underwent a venous Doppler of the left lower extremity which was negative for DVT. Patient's been afebrile. Infectious disease is following. Objective - Vital Signs Vital signs: Vital Signs Temp 97.9 F 07/17/21 07:00 Pulse 71 07/17/21 08:00 Resp 16 07/17/21 08:00 BP 146/81 07/17/21 07:00 Pulse Ox 95 07/17/21 07:00 Intake & Output 07/16/21 07/17/21 07/17/21 18:59 06:59 18:59 Intake Total 658 800 Balance 658 800 Weight 157.397 kg Intake: Oral 658 800 Other: Voiding Method Toilet Toilet # Voids 1 2 - Exam General appearance: The patient is alert, oriented, in no acute distress. HET: Head is normocephalic and atraumatic. Pupils are equal and reactive. Oropharynx is clear without lesions. Neck: Supple without lymphadenopathy. Trachea midline. Extremities: Left lower extremity with edema and kannan wrap in place. Neurological: No focal deficits. Strength and sensation are grossly intact. - Labs CBC & Chem 7: 07/17/21 06:05 07/17/21 06:05 Labs: Abnormal Lab Results - Last 24 Hours (Table) 07/17/21 07/17/21 Range/Units 06:05 06:05 MCHC 31.6 L (32.0-37.0) g/dL Monocytes # 1.05 H (0.20-1.00) X 10*3/uL Chloride 108 H (98-107) mmol/L Glucose 103 H (74-99) mg/dL Albumin 2.9 L (3.5-5.0) g/dL Microbiology - Last 24 Hours (Table) 07/16/21 07:00 Gram Stain - Preliminary Leg - Left Wound Culture - Preliminary Presumptive Staph aureus 07/15/21 20:05 Blood Culture - Preliminary Blood No Growth after 24 hours Assessment and Plan Assessment: 1. Venous insufficiency 2. Venous stasis ulcer left lower extremity 3. History of left lower extremity DVT 4. History of PE 5. History of hypertension 6. Current smoker 7. Obesity Plan: 1. Local wound care per recommendations from Dr. Guillen 2. Elevate left lower extremity 3. Apply compression to left lower extremity with Kannan wrap 4. There is no indication for any vascular surgical intervention 5. Patient may follow-up as needed outpatient with vascular surgery Thank you for this consultation, and allowing us take part in the plan of care of your patient during his hospital stay. We will sign off at this time. The impression and plan of care has been dictated as directed. Dr. Tilley I performed a history and examination of this patient, discussed the same with the dictator. I agree with the dictator's note ,documented as a scribe. Any additional findings or plans will be noted.
[2021-07-17] MEDS: ACETAMINOPHEN TAB 325 MG TAB PO PRN (16:03)
[2021-07-17] MEDS ORDERED: VANCOMYCIN TROUGH DUE 1 EACH MISC MISCELLANE ONE (17:00)
--- NOTE | 2021-07-17 18:26 | PN ---
PROGRESS NOTE DATE OF SERVICE: 07/17/2021 REASON FOR FOLLOWUP: Left leg venostasis ulcer and secondary cellulitis. INTERVAL HISTORY: The patient is afebrile. He is still complaining of pain to the left leg wound area. The patient denies having any chest pain or shortness of breath. Occasional cough. No abdominal pain or diarrhea. PHYSICAL EXAMINATION: Blood pressure 134/84, pulse of 77, temperature 98.1. He is 98% on room air. General description is a middle-aged male lying in bed in no distress. RESPIRATORY SYSTEM: Unlabored breathing. Clear to auscultation anteriorly. HEART: S1, S2. Regular rate and rhythm. ABDOMEN: Soft. No tenderness. Left leg is currently dressed. No drainage on the dressing. LABS: White count 7.5. Local culture showing Staph aureus. DIAGNOSTIC IMPRESSION AND PLAN: Patient with left leg venostasis ulcer with secondary cellulitis. Culture with Staph aureus, sensitivities pending. Patient is covered with vancomycin, local wound care with Santyl. Continue supportive care. MMODL / IJN: [id number] /
[2021-07-17] MEDS: VENLAFAXINE HCL ER 150 MG CAP PO SCH (20:54)
[2021-07-17] MEDS: ASPIRIN 81 MG PO SCH (20:54)
[2021-07-17] MEDS: POTASSIUM CHLORIDE ER 10 MEQ TAB.ER.PRT PO SCH (20:54)
[2021-07-17] MEDS: FUROSEMIDE 20 MG TAB PO SCH (20:54)
[2021-07-17] MEDS: traZODone HCL 100 MG TAB PO SCH (20:54)
[2021-07-17] MEDS: amLODIPine 5 MG TAB PO SCH (20:54)
[2021-07-17] MEDS ORDERED: traMADol 50 MG TAB PO SCH (22:00)
[2021-07-18] MEDS: VANCOMYCIN 2,500 MG in SODIUM CHLORIDE 0.9% 500 ML 500 ML IVPB SCH (05:32)
[2021-07-18] MEDS: LEVOTHYROXINE 25 MCG TAB PO SCH (05:33)
[2021-07-18 07:21] LABS: ALT 16 U/L (4-49); AST 21 U/L (17-59); African American GFR (CKD) >90 (>60 ml/min/1.73 sqM); Albumin 2.9 g/dL (3.5-5.0); Albumin/Globulin Ratio 0.9; Alkaline Phosphatase 113 U/L (38-126); Anion Gap 4 mmol/L; Blood Urea Nitrogen 15 mg/dL (9-20); Calcium 8.5 mg/dL (8.4-10.2); Carbon Dioxide 27 mmol/L (22-30); Chloride 105 mmol/L (98-107); Globulin 3.3 g/dL; Glucose 95 mg/dL (74-99); Non-African American GFR(CKD) >90 (>60 ml/min/1.73 sqM); Potassium 4.3 mmol/L (3.5-5.1); Sodium 136 mmol/L (137-145); Total Bilirubin 0.2 mg/dL (0.2-1.3); Total Protein 6.2 g/dL (6.3-8.2)
[2021-07-18] MEDS: traMADol 50 MG TAB PO SCH ×3 (08:09→21:02)
[2021-07-18] MEDS: PANTOPRAZOLE 40 MG TABLET PO SCH (08:09)
[2021-07-18] MEDS: ENOXAPARIN 40 MG/0.4 ML SYRINGE SQ SCH (08:10)
[2021-07-18] MEDS: NICOTINE 14MG/24HR PATCH TRANSDERM SCH (08:10)
[2021-07-18] MEDS: MORPHINE SULFATE 4 MG/ML SYRINGE IV PRN ×3 (08:10→23:13)
[2021-07-18 09:11] LABS: Basophils # (A) 0.05 X 10*3/uL (0.00-0.10); Basophils % (A) 0.7 %; Eosinophils # (A) 0.42 X 10*3/uL (0.04-0.35); Eosinophils % (A) 5.6 %; HCT 42.3 % (39.6-50.0); HGB 13.4 g/dL (13.0-17.0); Lymphocytes % (A) 25.3 %; MCH 28.2 pg (27.0-32.0); MCHC 31.7 g/dL (32.0-37.0); MCV 89.1 fL (80.0-97.0); Mean Platelet Volume 9.6 fL (9.5-12.2); Monocytes # (A) 0.97 X 10*3/uL (0.20-1.00); Monocytes % (A) 12.9 %; Neutrophils # (A) 4.13 X 10*3/uL (1.80-7.70); Neutrophils % (A) 55.1 %; Platelet Count 424 X 10*3/uL (140-440); RBC 4.75 X 10*6/uL (4.40-5.60); RDW 13.7 % (11.5-14.5)
--- NOTE | 2021-07-18 09:15 | P.CONS ---
History of Present Illness - Reason for Consult Consult date: 07/16/21 left leg cellulitis Requesting physician: Maria Elena Rico - Chief Complaint left leg pain and redness x days - History of Present Illness History of present illness : Patient is a 46-year-old male with a past medical history significant for chronic left lower extremity venous stasis ulcer for which the patient used to follow with me at [facility] wound care however the patient has not seen seen there for more than a month now patient presented to hospital with increasing pain redness and drainage from his left leg wound that has been getting worse for the last few days patient denies having history of any trauma describing the pain to the leg to be more of a sharp in nature intensity almost 7-8 out of 10 no radiation with associated swelling redness and more drainage patient on presentation to the hospital was afebrile patient did have a normal white count local cultures were obtained patient was started on vancomycin and admitted to hospital infectious disease was consulted for further management of antibiotic therapy Review of system: CONSTITUTIONAL: Positive for weakness denies fever. EYES: No complaint. ENT: No complaint. RESPIRATORY: No complaint. CARDIOVASCULAR: No complaint. GENITOURINARY: No complaint. GASTROINTESTINAL: No complaint. MUSCULOSKELETAL: No complaint. INTEGUMENTARY: As per history of present illness. PSYCHOLOGIC: No complaint. ENDOCRINE: No complaint. NEUROLOGIC: No complaint. Past medical history : Reviewed, documented below Past surgical history : Reviewed, documented below Social history: Reviewed, documented below Medications: Reviewed, as documented below EXAMINATION: Vital sigans= Reviewed and documented below GENERAL DESCRIPTION: Middle-aged male lying in bed, no distress. No tachypnea or accessory muscle of respiration use. HEENT: Shows Pallor , no scleral icterus. Oral mucous membrane is dry. NECK: Trachea central, no thyromegaly. LUNGS: Unlabored breathing. Clear to auscultation anteriorly. No wheeze or crackle. HEART: S1, S2, regular rate and rhythm. ABDOMEN: Soft, no tenderness , guarding or rigidity EXTREMITIES: Left lower extremity with the wound with minimal slough tissue surrounding swelling redness no foul-smelling drainage SKIN: No rash, no masses palpable. NEUROLOGICAL: The patient is awake, alert, oriented x3, mood and affect normal. LABS AND RADIOLOGY: Reviewed results see below Assessment : Patient presented to hospital with increasing pain swelling redness of the left leg in this patient who did have a chronic with a stress ulcer to the left lower extremity in this patient who did have noncompliance with compression to keep the swelling down, as for as cellulitis will need to cover for the gram-positive skin diamond to the likely pathogen Plan: 1-local wound care with the [facility] followed by moist dressing and Kannan wrap for compression 2-vancomycin pharmacy to dose with a target trough of 15 while watching kidney function and Vanco trough closely. We will follow on clinical condition and cultures to further adjust medication if needed Thank you for this consultation we will follow the patient along with you Past Medical History Past Medical History: Chest Pain / Angina, Deep Vein Thrombosis (DVT), GI Bleed, Hypertension, Osteoarthritis (OA), Pulmonary Embolus (PE), Skin Disorder, Thy roid Disorder Additional Past Medical History / Comment(s): psoriasis, enlarged heart, [place]- schlatter disease History of Any Multi-Drug Resistant Organisms: None Reported Past Surgical History: Joint Replacement, Orthopedic Surgery Additional Past Surgical History / Comment(s): Left knee surgery for [place]- schlatter disease. Right knee scope, helene knee replacement Past Anesthesia/Blood Transfusion Reactions: No Reported Reaction Past Psychological History: Anxiety, Depression Smoking Status: Current every day smoker Past Alcohol Use History: Occasional Past Drug Use History: Marijuana - Past Family History Mother Family Medical History: Asthma, Blood Disorder, CVA/TIA, Diabetes Mellitus, GERD/Reflux, Hypertension, Memory Impairment, Osteoarthritis (OA), Renal Disease Additional Family Medical History / Comment(s): brain aneurysm Medications and Allergies Home Medications Medication Instructions Recorded Confirmed Type Venlafaxine HCl ER [Effexor XR] 150 mg PO HS 07/03/18 07/15/21 History amLODIPine [Norvasc] 5 mg PO HS 07/03/18 07/15/21 History Aspirin [Adult Low Dose Aspirin EC] 81 mg PO HS 05/31/19 07/15/21 History Furosemide [Lasix] 20 mg PO HS 05/31/19 07/15/21 History Levothyroxine Sodium 25 mcg PO HS 05/31/19 07/15/21 History Potassium Chloride [Potassium 10 meq PO HS 05/31/19 07/15/21 History Chloride ER] traMADol HCL 50 mg PO TID 01/30/20 07/15/21 History traZODone HCL [Desyrel] 100 mg PO HS 01/30/20 07/15/21 History Allergies Allergy/AdvReac Type Severity Reaction Status Date / Time No Known Allergies Allergy Verified 07/15/21 21:15 Physical Exam Vitals: Vital Signs Temp Pulse Pulse Resp BP BP BP 07/16/21 07:00 98.3 F 85 16 129/83 07/15/21 22:41 98.4 F 75 18 129/81 07/15/21 22:18 72 20 136/84 07/15/21 21:10 137/73 07/15/21 20:25 72 20 124/86 07/15/21 19:45 71 20 119/74 07/15/21 17:19 97.4 F L 84 19 121/79 Pulse Ox 07/16/21 07:00 95 07/15/21 22:41 98 07/15/21 22:18 96 07/15/21 21:10 07/15/21 20:25 97 07/15/21 19:45 96 07/15/21 17:19 97 Intake and Output 07/15/21 07/16/21 07/16/21 22:59 06:59 14:59 Intake Total 1000 658 Balance 1000 658 Intake: Intake, IV Titration 1000 Amount Sodium Chloride 0.9% 500 500 ml 500 ml @ 999 mls/hr IV .Q31M ONE Rx#:[id number] Vancomycin 2,500 mg In 500 Sodium Chloride 0.9% 500 ml 500 ml @ 167 mls/hr IVPB Q12H [facility] Rx#: [id number] Oral 658 Other: # Voids 0 Weight 157.397 kg Results CBC & Chem 7: 07/18/21 06:34 07/18/21 06:34 Labs: Abnormal Lab Results - Last 24 Hours (Table) 07/15/21 Range/Units 20:05 Sodium 135 L (137-145) mmol/L
--- NOTE | 2021-07-18 18:33 | PN ---
PROGRESS NOTE DATE OF SERVICE: 07/18/2021 REASON FOR FOLLOWUP: Left leg wound with secondary cellulitis. INTERVAL HISTORY: The patient is afebrile. The patient is breathing comfortably. Still complaining of pain to the left leg; no worsening, though. No chest pain, shortness of breath or cough. No abdominal pain or diarrhea. PHYSICAL EXAMINATION: Blood pressure 147/93 with pulse of 79, temperature of 98.4. He is 96% on room air. General description is a middle-aged male lying in bed in no distress. RESPIRATORY SYSTEM: Unlabored breathing. Clear to auscultation anteriorly. HEART: S1, S2. Regular rate and rhythm. ABDOMEN: Soft. No tenderness. Left leg is currently dressed. No obvious drainage on the dressing. LABS: Wound culture finalized with MSSA. DIAGNOSTIC IMPRESSION AND PLAN: Patient with left leg venostasis ulcer with secondary cellulitis. Culture positive for MSSA. Antibiotic was switched over to cefazolin. Local care with Santyl along with Kannan wrap. Continue supportive care. MMODL / IJN: [id number] /
--- NOTE | 2021-07-18 20:30 | PN ---
PROGRESS NOTE I am covering for Dr. Rico. DATE OF SERVICE: 07/18/2021 This 46-year-old gentleman, admitted with multiple medical problems, had significant left leg wound and cellulitis also. The patient seems to be improving slightly. No chest pain. No palpitations. Patient is on broad-spectrum IV antibiotics. Dr. Guillen is following the patient closely. Culture showed Staph aureus which is MSSA. PHYSICAL EXAMINATION: Alert and oriented x3. Pulse 79, blood pressure 147/93, respiration 20, temperature 98.4, pulse ox 96% on room air. HEENT: Conjunctivae normal. NECK: No jugular venous distention. CARDIOVASCULAR: S1, S2 muffled. RESPIRATION: Breath sounds diminished at the bases. ABDOMEN: Soft, obese. LEGS: Left leg has swelling and ulceration present. NERVOUS SYSTEM: No focal deficit. LABS: Sodium . Other labs noted. ASSESSMENT: 1. Left leg wound and cellulitis with MSSA. 2. History of nicotine dependence. 3. Hypertension. 4. History of deep vein thrombosis. 5. Hyponatremia. 6. Mild hypoalbuminemia. 7. History of deep vein thrombosis. 8. History of anxiety, depression. RECOMMENDATIONS AND DISCUSSION: In this 46-year-old gentleman who presented with multiple complex medical issues, we will monitor the patient closely, continue the antibiotics. Continue the rest of the medications. I would also recommend repeat labs in the morning. Closely follow with Infectious Disease. Guarded prognosis. Further recommendations to follow. MMODL / IJN: [id number] /
[2021-07-18] MEDS: ASPIRIN 81 MG PO SCH (21:02)
[2021-07-18] MEDS: POTASSIUM CHLORIDE ER 10 MEQ TAB.ER.PRT PO SCH (21:02)
[2021-07-18] MEDS: FUROSEMIDE 20 MG TAB PO SCH (21:02)
[2021-07-18] MEDS: traZODone HCL 100 MG TAB PO SCH (21:02)
[2021-07-18] MEDS: VENLAFAXINE HCL ER 150 MG CAP PO SCH (21:02)
[2021-07-18] MEDS: amLODIPine 5 MG TAB PO SCH (21:02)
[2021-07-19] MEDS: LEVOTHYROXINE 25 MCG TAB PO SCH (05:31)
[2021-07-19] MEDS: MORPHINE SULFATE 4 MG/ML SYRINGE IV PRN ×4 (05:39→21:08)
[2021-07-19 06:28] LABS: African American GFR (CKD) >90 (>60 ml/min/1.73 sqM); Anion Gap 6 mmol/L; Blood Urea Nitrogen 16 mg/dL (9-20); Carbon Dioxide 29 mmol/L (22-30); Chloride 102 mmol/L (98-107); Glucose 94 mg/dL (74-99); Non-African American GFR(CKD) >90 (>60 ml/min/1.73 sqM); Potassium 4.6 mmol/L (3.5-5.1); Sodium 137 mmol/L (137-145)
[2021-07-19] MEDS: NICOTINE 14MG/24HR PATCH TRANSDERM SCH (08:56)
[2021-07-19] MEDS: traMADol 50 MG TAB PO SCH ×3 (08:56→21:06)
[2021-07-19] MEDS: ENOXAPARIN 40 MG/0.4 ML SYRINGE SQ SCH (08:56)
[2021-07-19] MEDS: PANTOPRAZOLE 40 MG TABLET PO SCH (08:56)
[2021-07-19 09:51] LABS: Basophils # (A) 0.07 X 10*3/uL (0.00-0.10); Basophils % (A) 1.1 %; Eosinophils # (A) 0.29 X 10*3/uL (0.04-0.35); Eosinophils % (A) 4.5 %; HCT 44.1 % (39.6-50.0); Lymphocytes # (A) 1.91 X 10*3/uL (0.90-5.00); Lymphocytes % (A) 29.8 %; MCH 28.5 pg (27.0-32.0); MCHC 31.7 g/dL (32.0-37.0); MCV 89.8 fL (80.0-97.0); Mean Platelet Volume 9.5 fL (9.5-12.2); Monocytes % (A) 10.9 %; Neutrophils # (A) 3.41 X 10*3/uL (1.80-7.70); Neutrophils % (A) 53.4 %; Platelet Count 443 X 10*3/uL (140-440); RBC 4.91 X 10*6/uL (4.40-5.60); RDW 13.9 % (11.5-14.5)
--- NOTE | 2021-07-19 19:36 | PN ---
PROGRESS NOTE DATE OF SERVICE: 07/19/2021 I am covering for Dr. Rico This 46-year-old gentleman who was admitted with left leg wound with emesis is being closely monitored. No chest pain. No palpitations. No fever. Dr. Guillen is following the patient closely. PHYSICAL EXAMINATION: Alert and oriented x3. Pulse 81, blood pressure 151/89, respiration 18, temperature 97.2, pulse ox 98% on room air. HEENT: Conjunctivae normal. Oral mucosa moist. NECK: No jugular venous distention. No lymph node enlargement. CARDIOVASCULAR: S1, S2, muffled. No S3, no S4, RESPIRATORY: Diminished breath sounds at the bases. ABDOMEN: Soft, nontender. LEGS: Left leg wound present. LABS: CBC within normal limits. Other labs are noted. ASSESSMENT: 1. Left leg wound with cellulitis with MSSA. 2. History of nicotine dependence. 3. Hypertension. 4. History of deep vein thrombosis. 5. Hyponatremia. 6. Hypoalbuminemia. 7. History of DVT. 8. History of anxiety, depression. RECOMMENDATIONS: Recommend to continue current management, continue symptomatic treatment. Continue with empiric antibiotics. Continue with DVT prophylaxis. Closely follow and Dr. Rico will follow on Tuesday. MMODL / IJN: [id number] /
[2021-07-19] MEDS: FUROSEMIDE 20 MG TAB PO SCH (21:05)
[2021-07-19] MEDS: ASPIRIN 81 MG PO SCH (21:05)
[2021-07-19] MEDS: VENLAFAXINE HCL ER 150 MG CAP PO SCH (21:05)
[2021-07-19] MEDS: POTASSIUM CHLORIDE ER 10 MEQ TAB.ER.PRT PO SCH (21:05)
[2021-07-19] MEDS: amLODIPine 5 MG TAB PO SCH (21:06)
[2021-07-19] MEDS: traZODone HCL 100 MG TAB PO SCH (21:06)
--- NOTE | 2021-07-20 00:32 | PN ---
PROGRESS NOTE DATE OF SERVICE: 07/19/2021 REASON FOR FOLLOWUP: Left leg venous stasis ulcer with secondary cellulitis. INTERVAL HISTORY: Patient is afebrile. The patient is breathing comfortably. Denies any chest pain, shortness of breath or cough. The left leg pain and discomfort has decreased. PHYSICAL EXAMINATION: Blood pressure 145/90 with a pulse of 83, temperature 97.6. He is 99% on room air. General description is a middle-aged male lying in bed in no distress. Respiratory system: Unlabored breathing , clear to auscultation anteriorly. Heart S1, S2. Regular rate and rhythm. Abdomen soft. Left leg swelling and redness slightly decreased. LABS: Creatinine 0.90. White count of 6.40. DIAGNOSTIC IMPRESSION AND PLAN: Patient with left leg venous stasis ulcer with secondary cellulitis culture positive for MSSA the patient on cefazolin, transition to oral Keflex, local wound care with [facility] and follow up with the [facility] Care Center: Continue supportive care. MMODL / IJN: [id number] /
[2021-07-20] MEDS: MORPHINE SULFATE 4 MG/ML SYRINGE IV PRN ×5 (01:02→22:18)
[2021-07-20] MEDS: LEVOTHYROXINE 25 MCG TAB PO SCH (05:54)
[2021-07-20 07:08] LABS: African American GFR (CKD) >90 (>60 ml/min/1.73 sqM); Non-African American GFR(CKD) >90 (>60 ml/min/1.73 sqM)
[2021-07-20] MEDS: NICOTINE 14MG/24HR PATCH TRANSDERM SCH (08:38)
[2021-07-20] MEDS: traMADol 50 MG TAB PO SCH ×3 (08:38→19:48)
[2021-07-20] MEDS: PANTOPRAZOLE 40 MG TABLET PO SCH (08:38)
[2021-07-20] MEDS: ENOXAPARIN 40 MG/0.4 ML SYRINGE SQ SCH (08:41)
--- NOTE | 2021-07-20 13:35 | PN ---
PROGRESS NOTE DATE OF SERVICE: 07/20/2021 REASON FOR FOLLOWUP: Left leg venous stasis ulcer and cellulitis. INTERVAL HISTORY: The patient is afebrile. He is breathing comfortably. Denies having any chest pain. No shortness of breath, cough, no abdominal pain. Pain to the left breast is currently controlled. PHYSICAL EXAMINATION: Blood pressure 131/86, pulse of 83, temperature 97.5. He is 97% on room air. General description is a middle-aged male lying in bed in no distress. Respiratory system: Unlabored breathing, clear to auscultation anteriorly. Heart S1, S2. Regular rate and rhythm. Abdomen soft, no tenderness. The left leg is currently dressed, no drainage on the dressing. LABS: Creatinine 0.85. DIAGNOSTIC IMPRESSION AND PLAN: Patient with acute left lower extremity venostasis ulcer with secondary cellulitis. Culture with MSSA. Finish therapy with oral Keflex. Advised to follow up in the Wound Care Center with me. Continue supportive care. MMODL / IJN: [id number] /
[2021-07-20] MEDS: amLODIPine 5 MG TAB PO SCH (19:49)
[2021-07-20] MEDS: VENLAFAXINE HCL ER 150 MG CAP PO SCH (19:49)
[2021-07-20] MEDS: FUROSEMIDE 20 MG TAB PO SCH (19:49)
[2021-07-20] MEDS: ASPIRIN 81 MG PO SCH (19:49)
[2021-07-20] MEDS: POTASSIUM CHLORIDE ER 10 MEQ TAB.ER.PRT PO SCH (19:49)
[2021-07-20 20:07] VITALS: RESP 18
[2021-07-20] MEDS: traZODone HCL 100 MG TAB PO SCH (22:18)
--- NOTE | 2021-07-20 23:42 | P.PN ---
Subjective This is a pleasant 46 years old male who presents with left leg wound and cellulitis secondary to vascular insufficiency and venous status stasis of the left lower extremity, has been evaluated by vascular surgery and recommended conservative management. Also has currently on antibiotics of ampicillin per ID team. Vital signs stable. Creatinine 0.8. Objective - Vital Signs Vital signs: Vital Signs Temp 97.5 F L 07/20/21 07:00 Pulse 86 07/20/21 07:00 Resp 20 07/20/21 07:00 BP 131/86 07/20/21 07:00 Pulse Ox 96 07/20/21 07:00 Intake & Output 07/19/21 07/20/21 07/20/21 18:59 06:59 18:59 Intake Total 600 200 Balance 600 200 Weight 157.397 kg Intake: Oral 600 200 Other: Voiding Method Toilet Toilet # Voids 1 3 2 - Exam GENERAL: The patient is alert and oriented x3, not in any acute distress. Well developed, well nourished. HEENT: Pupils are round and equally reacting to light. EOMI. No scleral icterus. No conjunctival pallor. Normocephalic, atraumatic. No pharyngeal erythema. No thyromegaly. CARDIOVASCULAR: S1 and S2 present. No murmurs, rubs, or gallops. PULMONARY: Chest is clear to auscultation, no wheezing or crackles. ABDOMEN: Soft, nontender, nondistended, normoactive bowel sounds. No palpable organomegaly. MUSCULOSKELETAL: No joint swelling or deformity. -EXTREMITIES: No cyanosis, clubbing, or pedal edema. Left lower extremity cellulitis improving NEUROLOGICAL: Gross neurological examination did not reveal any focal deficits. SKIN: No rashes. no petechiae. - Labs CBC & Chem 7: 07/19/21 05:08 07/20/21 06:29 Labs: Microbiology - Last 24 Hours (Table) 07/15/21 20:05 Blood Culture - Preliminary Blood No Growth after 96 hours Assessment and Plan Assessment: Left lower extremity cellulitis secondary to staff Vascular insufficiency Venous stasis of the left leg Plan: This is a pleasant 46 years old male who presents with left leg cellulitis. Continue with antibiotics cefazolin per ID team Vascular surgery evaluated the patient Labs and medication were reviewed.. Continue same treatment. Continue with symptomatic treatment. Resume home medication. Monitor lytes and vitals. DVT and GI prophylaxis. Further recommendationsas per clinical course of the patient DVT prophylaxis: Subcutaneous Lovenox GI Prophylaxis: Ppi
[2021-07-21] MEDS: MORPHINE SULFATE 4 MG/ML SYRINGE IV PRN (04:09)
[2021-07-21] MEDS: LEVOTHYROXINE 25 MCG TAB PO SCH (05:34)
[2021-07-21] MEDS: NICOTINE 14MG/24HR PATCH TRANSDERM SCH (08:02)
[2021-07-21] MEDS: ENOXAPARIN 40 MG/0.4 ML SYRINGE SQ SCH (08:02)
[2021-07-21] MEDS: PANTOPRAZOLE 40 MG TABLET PO SCH (08:03)
[2021-07-21] MEDS: traMADol 50 MG TAB PO SCH (08:03)
[2021-07-21 08:10] VITALS: BP 139/83; TEMP 97.3
[2021-07-21 11:16] VITALS: PULSE 69
--- NOTE | 2021-07-21 12:44 | P.DS ---
Providers Date of admission: 07/17/21 12:39 Expected date of discharge: 07/21/21 Attending physician: Maria Elena Rico Consults: 07/15/21 20:42 Consult Physician Routine Consulting Provider: Thelma Forde Consult Reason/Comments: Left leg wound; cellulitis Do you want consulting provider notified?: Yes Primary care physician: Maria Elena Rico [facility] Course: Diagnosis on discharge: 1. Left leg wound cellulitis. Patient started on vancomycin infectious disease and vascular surgery consulted 2. History of nicotine dependence. Patient educated greater than 3 minutes on smoking cessation. Nicotine patch ordered 3. History of essential hypertension 4. History of DVT 5. History of anxiety and depression Hospital course: Alexandro Juares, is a 46-year-old male who presented to [facility] emergency room with a chief complaint of right lower extremity swelling erythema and tenderness with a large open ulcer in the lower calf area. Patient reports he had an ongoing issue with leg wounds over the past year. Patient has followed before with wound care center. Patient reports that calf wound became significantly worse over the past few days prompting him to come the ER for further evaluation. Patient denies any recent infection. Patient denies fever. Patient denies any recent trauma to leg. He was evaluated in the emergency room vital examination on presentation revealed temp 97.8, blood pressure 113/70 a, heart rate 16 pulse ox 94% on room air Laboratory data reveals lactic acid went blood cell within normal limits Patient was admitted to medical floor for further evaluation and treatment. Vascular surgery and infectious disease service is consulted. Wound and blood cultures ordered. Patient started on vancomycin Past medical history is significant for chest pain, DVT, GI bleed, hypertension, osteoporosis, pulmonary embolism, skin disorder, thyroid disorder, nicotine dep endence and anxiety and depression On review of systems patient is resting comfortably in bed. Patient denies chest pain or shortness breath. Patient denies nausea vomiting or diarrhea. Patient denies any urinary burning or frequency. Leg wound dressing is clean dry and intact On 07/17/2021 patient's alert and oriented 3. Patient was evaluated by vascular surgery no surgical intervention planned at this time. Patient remains on vancomycin. Blood and wound cultures pending. At this time patient denies chest pain or shortness breath. Patient denies nausea vomiting or diarrhea. Patient denies any urinary burning or frequency On 07/18/2021 patient was seen by Dr. Hernandez on patient was seen by Dr. Hernandez On 07/20/2021 patient was seen by Sheet: This is a pleasant 46 years old male who presents with left leg wound and cellulitis secondary to vascular insufficiency and venous status stasis of the left lower extremity, has been evaluated by vascular surgery and recommended conservative management. Also has currently on antibiotics of ampicillin per ID team. Vital signs stable. Creatinine 0.8. On 07/21/2021 patient was seen and examined by myself on the medical floor he is alert and oriented 3 in no apparent distress he reports significant improvement to his lower extremity cellulitis, he was evaluated earlier by Dr. Forde and was cleared for discharge on oral Keflex, Dr. Forde sent in a prescription for Keflex, I also counseled patient in length in regard to smoking cessation, I sent a prescription for NicoDerm patches 14 g. Patient will be followed in our office within one week for further evaluation and treatment Patient Condition at Discharge: Serious Plan - Discharge Summary Discharge Rx Participant: No New Discharge Prescriptions: New Cephalexin [Keflex] 500 mg PO Q6HR 14 Days #56 cap Nicotine 14Mg/24Hr Patch [Habitrol] 1 patch TRANSDERM DAILY patch Continue amLODIPine [Norvasc] 5 mg PO HS Venlafaxine HCl ER [Effexor XR] 150 mg PO HS Aspirin [Adult Low Dose Aspirin EC] 81 mg PO HS Potassium Chloride [Potassium Chloride ER] 10 meq PO HS Levothyroxine Sodium 25 mcg PO HS Furosemide [Lasix] 20 mg PO HS traMADol HCL 50 mg PO TID traZODone HCL [Desyrel] 100 mg PO HS Discharge Medication List Venlafaxine HCl ER [Effexor XR] 150 mg PO HS 07/03/18 [History] amLODIPine [Norvasc] 5 mg PO HS 07/03/18 [History] Aspirin [Adult Low Dose Aspirin EC] 81 mg PO HS 05/31/19 [History] Furosemide [Lasix] 20 mg PO HS 05/31/19 [History] Levothyroxine Sodium 25 mcg PO HS 05/31/19 [History] Potassium Chloride [Potassium Chloride ER] 10 meq PO HS 05/31/19 [History] traMADol HCL 50 mg PO TID 01/30/20 [History] traZODone HCL [Desyrel] 100 mg PO HS 01/30/20 [History] Cephalexin [Keflex] 500 mg PO Q6HR 14 Days #56 cap 07/20/21 [Rx] Nicotine 14Mg/24Hr Patch [Habitrol] 1 patch TRANSDERM DAILY patch 07/21/21 [Rx] Follow up Appointment(s)/Referral(s): Susanna Tilley DO [STAFF PHYSICIAN] - 2 Weeks Maria Elena Rico MD [Primary Care Provider] - 1-2 days Thelma Forde MD [STAFF PHYSICIAN] - 1 Week Patient Instructions/Handouts: Wound Infection (DC) Activity/Diet/Wound Care/Special Instructions: Follow up with Dr forde in wound care , call [phone] to make an appointment activity as tolerated [id number] Wrap ... DAILY to left leg
--- NOTE | 2021-07-21 13:33 | PN ---
PROGRESS NOTE DATE OF SERVICE: 07/21/2021 REASON FOR FOLLOWUP: Left lower extremity venostasis ulcer and cellulitis MSSA. INTERVAL HISTORY: Patient is afebrile. The patient is breathing comfortably. Denies having any chest pain. No shortness of breath. No cough. No nausea or vomiting. No abdominal pain or any worsening pain to the left leg. PHYSICAL EXAMINATION: Blood pressure 139/83 with a pulse of 74, temperature 97.9. She is 97% on room air. General description is a middle-aged male lying in bed in no distress. Respiratory system: Unlabored breathing, clear to auscultation anteriorly. Heart S1, S2. Regular rate and rhythm. Abdomen soft, no tenderness. Left leg swelling and redness has decreased. LABS: No new labs have been obtained today. DIAGNOSTIC IMPRESSION AND PLAN: Patient with acute left lower extremity underlying venous stasis ulcer and finish therapy with oral Keflex, local wound care with [facility]. Follow up in the Wound Center next week. Continue supportive care. MMODL / IJN: [id number] /
== END 2021-07-21 15:48 | disposition home or self-care (01) | DRG 300 ==
LOC: EC 15:56 → 6NMEDSUR 20:57 → OBSVTOIN 07-17 12:39
PROVIDERS: ADMIT Internal Medicine; ATTEND Internal Medicine
DX: I87.2 Venous insufficiency (chronic) (peripheral) (principal); L03.116 Cellulitis of left lower limb; E87.1 Hypo-osmolality and hyponatremia; Z68.42 Body mass index [BMI] 45.0-49.9, adult; L97.219 Non-pressure chronic ulcer of right calf with unspecified severity; B95.61 Methicillin susceptible Staphylococcus aureus infection as the cause of diseases classified elsewhere; E88.09 Other disorders of plasma-protein metabolism, not elsewhere classified; Z20.822 Contact with and (suspected) exposure to COVID-19; E66.9 Obesity, unspecified; I10 Essential (primary) hypertension; F17.200 Nicotine dependence, unspecified, uncomplicated; M81.0 Age-related osteoporosis without current pathological fracture; F41.9 Anxiety disorder, unspecified; F32.9 Major depressive disorder, single episode, unspecified; Z96.653 Presence of artificial knee joint, bilateral; Z86.718 Personal history of other venous thrombosis and embolism; Z86.711 Personal history of pulmonary embolism; Z82.49 Family history of ischemic heart disease and other diseases of the circulatory system; Z82.5 Family history of asthma and other chronic lower respiratory diseases; Z79.82 Long term (current) use of aspirin; Z83.3 Family history of diabetes mellitus; Z91.19 Patient's noncompliance with other medical treatment and regimen; Z71.6 Tobacco abuse counseling
CPT/HCPCS: 36415; 80048; 80053; 80202; 82565; 83036; 83605; 85025; 87040; 87070; 87077; 87186; 87205; 87635; 96365; 96366; 96375; 99284

== ENCOUNTER → 2021-11-25 | Outpatient (CLI) | payer OTHER ==
[2021-11-25 19:03] LABS: Basophils # (A) 0.07 X 10*3/uL (0.00-0.10); Basophils % (A) 0.6 %; Eosinophils # (A) 0.05 X 10*3/uL (0.04-0.35); Eosinophils % (A) 0.5 %; HGB 15.3 g/dL (13.0-17.0); Immature Grans, Automated 0.5 %; Lymphocytes # (A) 1.96 X 10*3/uL (0.90-5.00); MCH 28.9 pg (27.0-32.0); MCHC 31.9 g/dL (32.0-37.0); MCV 90.7 fL (80.0-97.0); Mean Platelet Volume 9.3 fL (9.5-12.2); Monocytes # (A) 1.02 X 10*3/uL (0.20-1.00); Monocytes % (A) 9.3 %; NRBC Per 100 WBC 0 /100 WBCS (0.0-0.0); Neutrophils # (A) 7.76 X 10*3/uL (1.80-7.70); Neutrophils % (A) 71.1 %; Platelet Count 451 X 10*3/uL (140-440); RBC 5.29 X 10*6/uL (4.40-5.60); RDW 14.6 % (11.5-14.5); WBC 10.91 X 10*3/uL (4.50-10.00)
[2021-11-25 19:13] LABS: Albumin/Globulin Ratio 1.11 (1.60-3.17); Anion Gap 11.7 mmol/L (10.00-18.00); BUN/Creat Ratio 9.8 Ratio (12.00-20.00); Calcium 8.9 mg/dL (8.7-10.3); Carbon Dioxide 23.4 mmol/L (20.0-27.5); Globulin 3.6 g/dL (1.6-3.3); Non-African American GFR(CKD) 87.1 (60.0-200.0); Potassium 4.4 mmol/L (3.5-5.5); Prealbumin 25.7 mg/dL (18.0-42.0); Total Bilirubin 0.4 mg/dL (0.30-1.20); Total Protein 7.6 g/dL (6.2-8.2)
== END | disposition home or self-care (01) ==
LOC: LABWHC1 12:27
PROVIDERS: ATTEND Thoracic Surgery (Cardiothoracic Vascular Surgery)
DX: L97.922 Non-pressure chronic ulcer of unspecified part of left lower leg with fat layer exposed (principal); I82.502 Chronic embolism and thrombosis of unspecified deep veins of left lower extremity; I83.029 Varicose veins of left lower extremity with ulcer of unspecified site; L97.929 Non-pressure chronic ulcer of unspecified part of left lower leg with unspecified severity; R60.9 Edema, unspecified
CPT/HCPCS: 36415; 80053; 84134; 85025

== ENCOUNTER → 2021-12-23 | Outpatient (CLI) | payer OTHER ==
[2021-12-23 14:49] VITALS: BMI 46.7
== END ==
LOC: DBWHC3 13:31
PROVIDERS: ATTEND Internal Medicine
DX: E66.01 Morbid (severe) obesity due to excess calories (principal); Z68.42 Body mass index [BMI] 45.0-49.9, adult
CPT/HCPCS: 97802

== ENCOUNTER 2022-03-18 08:47 | Day surgery (SDC) | payer OTHER ==
[2022-03-16 11:43] VITALS: BMI 46.0
[2022-03-18] MEDS ORDERED: LIDOCAINE 1% (10MG/ML) FOR IV START INTRADERMA ONE (09:18)
[2022-03-18] MEDS: LACTATED RINGERS 1,000 ML IV SCH ×2 (09:18→10:00)
[2022-03-18 09:24] VITALS: TEMP 96.7
[2022-03-18] MEDS ORDERED: KETAMINE 10 MG/ML 20 ML VIAL ONE (10:01)
[2022-03-18] MEDS ORDERED: PROPOFOL 10 MG/ML 20 ML VIAL IV ONE (10:01)
--- NOTE | 2022-03-18 10:03 | P.GSHP ---
History of Present Illness H&P Date: 03/18/22 Chief Complaint: GI bleed Is a 39-year-old male with history of GI bleed. Patient presents today for colonoscopy. Past Medical History Past Medical History: Chest Pain / Angina, Deep Vein Thrombosis (DVT), GI Bleed, Hypertension, Osteoarthritis (OA), Pulmonary Embolus (PE), Skin Disorder, Thyroid Disorder Additional Past Medical History / Comment(s): Psoriasis, enlarged heart, hx [place]-Schlatter Disease. History of Any Multi-Drug Resistant Organisms: None Reported Past Surgical History: Joint Replacement, Orthopedic Surgery Additional Past Surgical History / Comment(s): Left knee surgery for [place]- Schlatter disease, right knee scope, bilateral knee replacements. Past Anesthesia/Blood Transfusion Reactions: No Reported Reaction Past Psychological History: Anxiety, Depression Smoking Status: Current every day smoker Past Alcohol Use History: Occasional Additional Past Alcohol Use History / Comment(s): Smoker X20 years, 1/2 ppd. Past Drug Use History: Marijuana Additional Drug Use History / Comment(s): Marijuana occasionally. Aware no use 24 hrs prior to procedure. - Past Family History Mother Family Medical History: Asthma, Blood Disorder, CVA/TIA, Diabetes Mellitus, GERD/Reflux, Hypertension, Memory Impairment, Osteoarthritis (OA), Renal Disease Additional Family Medical History / Comment(s): Brain aneurysm. Medications and Allergies Home Medications Medication Instructions Recorded Confirmed Type Venlafaxine HCl ER [Effexor XR] 150 mg PO HS 07/03/18 03/18/22 History amLODIPine [Norvasc] 5 mg PO HS 07/03/18 03/18/22 History Aspirin [Adult Low Dose Aspirin EC] 81 mg PO HS 05/31/19 03/18/22 History Furosemide [Lasix] 20 mg PO HS 05/31/19 03/18/22 History Levothyroxine Sodium 25 mcg PO HS 05/31/19 03/18/22 History Potassium Chloride [Potassium 10 meq PO HS 05/31/19 03/18/22 History Chloride ER] traZODone HCL [Desyrel] 100 mg PO HS 01/30/20 03/18/22 History traZODone HCL 100 mg PO TID PRN 03/16/22 03/18/22 History Allergies Allergy/AdvReac Type Severity Reaction Status Date / Time No Known Allergies Allergy Verified 03/18/22 09:02 Surgical - Exam Vital Signs Temp Pulse Resp BP Pulse Ox 96.7 F L 104 H 20 135/81 96 03/18/22 09:18 03/18/22 09:18 03/18/22 09:18 03/18/22 09:18 03/18/22 09:18 - General well developed, well nourished, no distress - Eyes PERRL - ENT normal pinna - Neck no masses - Respiratory normal expansion - Cardiovascular Rhythm: regular - Abdomen Abdomen: soft, non tender Assessment and Plan Assessment: GI bleed. We'll perform colonoscopy.
--- NOTE | 2022-03-18 10:25 | P.OP ---
Date of Procedure: 03/18/22 Preoperative Diagnosis: GI bleed Postoperative Diagnosis: Right colon polyp Diverticulosis Procedure(s) Performed: Colonoscopy Anesthesia: MAC Surgeon: Nehemias Mehta Pathology: other (Right colon polyp) Condition: stable Disposition: PACU Description of Procedure: The patient's placed on the endoscopy table in the lateral position. He received IV sedation. Digital rectal exam was performed. This revealed a few internal and external hemorrhoids. Flexible colonoscope was then placed patient anus passed throughout the entire colon. Ileocecal valve was visualized. The cecum, ascending colon was examined. In the ascending colon there was a small polyp seen. Removed accommodation forcep and snare. Scope was withdrawn the transverse colon appeared normal. In the descending; there was mild diverticular changes. The scope was then brought back the rectum and this appeared normal. Scope was withdrawn for patient.
[2022-03-18 10:42] VITALS: BP 109/70; PULSE 100; RESP 17
== END 2022-03-18 11:15 | disposition home or self-care (01) ==
LOC: ORWHC2ENDO 08:47
PROVIDERS: ATTEND Surgery
DX: D12.2 Benign neoplasm of ascending colon (principal); K57.31 Diverticulosis of large intestine without perforation or abscess with bleeding; K64.8 Other hemorrhoids; K64.4 Residual hemorrhoidal skin tags; I20.9 Angina pectoris, unspecified; I10 Essential (primary) hypertension; M19.90 Unspecified osteoarthritis, unspecified site; L40.9 Psoriasis, unspecified; M92.529 Juvenile osteochondrosis of tibia tubercle, unspecified leg; E07.9 Disorder of thyroid, unspecified; F41.9 Anxiety disorder, unspecified; F32.A Depression, unspecified; F17.210 Nicotine dependence, cigarettes, uncomplicated; E66.9 Obesity, unspecified; Z68.41 Body mass index [BMI] 40.0-44.9, adult; Z86.718 Personal history of other venous thrombosis and embolism; Z86.711 Personal history of pulmonary embolism; Z79.899 Other long term (current) drug therapy; Z79.82 Long term (current) use of aspirin; Z79.890 Hormone replacement therapy; Z96.653 Presence of artificial knee joint, bilateral; Z98.890 Other specified postprocedural states; Z82.5 Family history of asthma and other chronic lower respiratory diseases; Z82.3 Family history of stroke; Z83.3 Family history of diabetes mellitus; Z82.49 Family history of ischemic heart disease and other diseases of the circulatory system; Z82.61 Family history of arthritis; Z84.1 Family history of disorders of kidney and ureter
CPT/HCPCS: 88305; 45380; J2704; 45385